=== PATIENT | female | born 2000 | race Caucasian/White ===

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

== ENCOUNTER 2020-12-07 15:46 | Emergency (ER) | payer OTHER ==
--- OUTSIDE RECORDS SUMMARY | 2020-12-07 15:51 | XMS REPORT | Continuity of Care Document ---
:[address] [facility] t Address [address] [place] [address] Care Team Providers Name Role Phone Doctor Unassigned, Name Attending Clinician Unavailable Eh OTT Attending Clinician Singer LOPEZ Attending Clinician Problems This patient has no known problems. Allergies, Adverse Reactions, Alerts This patient has no known allergies or adverse reactions. Medications This patient has no known medications. Procedures This patient has no known procedures. Encounters Start End Encounter Admission Attending Care Care Encounter Source Date/Time Date/Time Type Type Clinicians Facility Department ID 2020-12-06 2020-12-06 Orders Doctor MEGAN [id number] 00:00:00 00:00:00 Only Unassigned, ZAYRA [id number] [place] [id number] 2020-08-07 2020-08-07 Emergency Eh [facility] [id number] 07:07:00 08:22:00 Bill Fabian [id number] [place] [id number] [place] [id number] 2020-04-22 2020-04-22 Emergency Singer MEYONG [id number] 16:38:00 19:41:00 Trevor Fabian [id number] [place] [id number] [place] [address] [id number] Results This patient has no known results.
[2020-12-07 19:30] LABS: Urine Blood Trace-intact (Negative); Urine Glucose Negative (Negative); Urine Protein Negative (Negative); Urine pH 8.5 (5.0-7.0)
--- NOTE | 2020-12-07 19:36 | RAD REPORT ---
EXAM DESCRIPTION: CT - Head Brain Wo Cont - 12/07/2020 7:30 pm CLINICAL HISTORY: possible seizure;Headache COMPARISON: Head Brain Wo Cont dated 06/09/2019 TECHNIQUE: All CT scans are performed using dose optimization technique as appropriate and may inclu de automated exposure control or mA/KV adjustment according to patient size. FINDINGS: No intracranial hemorrhage, hydrocephalus or extra-axial fluid collection.No areas of brai n edema or evidence of midline shift. The paranasal sinuses and mastoids are clear. The calvarium is intact. IMPRESSION: No acute intracranial abnormality.
[2020-12-07] MEDS ORDERED: ACETAMINOPHEN 325 MG TABLET ONE (19:41)
[2020-12-07] MEDS ORDERED: NA CHLORIDE 0.9% 500 ML ONE ×2 (19:41→21:58)
[2020-12-07 19:44] LABS: Absolute Lymphocytes (CBC) 4.4 K/uL (0.7-4.9); Basophils % 0.6 % (0-1.3); Hematocrit 39.7 % (36.0-45.0); Lymphocytes % 37.2 % (15.3-44.8); MPV 8.3 fL (7.6-11.3); RBC Red Blood Cell Count 4.31 M/uL (3.86-4.86)
[2020-12-07 19:53] LABS: Barbiturates NEGATIVE (NEGATIVE); Benzodiazepines NEGATIVE (NEGATIVE); Cocaine NEGATIVE (NEGATIVE); METHAMPHETAM NEGATIVE (NEGATIVE); Methadone NEGATIVE (NEGATIVE); Opiates NEGATIVE (NEGATIVE); Phencyclidine NEGATIVE (NEGATIVE); THC Cannibis NEGATIVE (NEGATIVE)
[2020-12-07 20:05] LABS: ALT/SGPT 15 U/L (12-78); AST/SGOT 15 U/L (15-37); Albumin 3.9 g/dL (3.4-5.0); Alkaline Phosphatase 85 U/L (45-117); BUN Blood Urea Nitrogen 8 mg/dL (7-18); Bicarbonate 25 mmol/L (21-32); Bilirubin Direct 0.1 mg/dL (0-0.2); Bilirubin Total 0.4 mg/dL (0.2-1.0); Glucose Level 83 mg/dL (74-106); Potassium 3.7 mmol/L (3.5-5.1); Protein, Total 8.2 g/dL (6.4-8.2); Sodium Level 140 mmol/L (136-145); Troponin I < 0.02 ng/mL (0.0-0.045)
[2020-12-07 20:22] LABS: Protime INR 1.03
--- NOTE | 2020-12-07 21:14 | RAD REPORT ---
EXAM DESCRIPTION: RAD - Chest Single View - 12/07/2020 9:04 pm CLINICAL HISTORY: CHEST PAIN COMPARISON: No comparisons FINDINGS: No evidence of edema or pneumonia. The heart size is within normal limits.No acute osseous abnormality. No significant pleural effusions or pneumothorax. IMPRESSION: No acute cardiopulmonary disease.
--- NOTE | 2020-12-07 21:51 | ER ---
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 Hx of seizures, not ca1 taking meds at this time. PT A\T\Ox4. Ambulatory. Coronavirus screen: Client denies travel out of the [place] in the last 14 days. At this time, the client does not indicate any symptoms associated with coronavirus-19. Ebola Screen: Patient negative for fever greater than or equal to 101.5 degrees Fahrenheit, and additional compatible Ebola Virus Disease symptoms Patient denies exposure to infectious person. Patient denies travel to an Ebola-affected area in the 21 days before illness onset. No symptoms or risks identified at this time. Initial Sepsis Screen: Does the patient meet any 2 criteria? No. Patient's initial sepsis screen is negative. Does the patient have a suspected source of infection? No. Patient's initial sepsis screen is negative. Risk Assessment: Do you want to hurt yourself or someone else? Patient reports no desire to harm self or others. Onset of symptoms was December 07, 2020. 15:53 Method Of Arrival: EMS: [facility] ca1 15:53 Acuity: ALFREDA 3 ca1 BLUEPRINTER: 15:56 LMP N/A - Irregular menses ca1 Historical: - Allergies: 15:56 No Known Allergies; ca1 - PMHx: 15:56 Anemia; Seizures; ca1 - Immunization history:: Client reports having NOT received the Covid vaccine. Flu vaccine is not up to date. - Social history:: Smoking status: Patient reports the use of cigarette tobacco products, denies chronic smoking, but will smoke occasionally, Patient uses alcohol, only on a social basis. Screenin:00 Abuse screen: Denies threats or abuse. Denies injuries from another. Nutritional ld1 screening: No deficits noted. Tuberculosis screening: No symptoms or risk factors identified. Fall Risk None identified. Assessment: 19:00 General: Appears in no apparent distress. comfortable, Behavior is calm, cooperative, ld1 appropriate for age. 19:00 Pain: Denies pain. Neuro: Level of Consciousness is awake, alert, obeys commands, ld1 Oriented to person, place, time, situation. Cardiovascular: Capillary refill < 3 seconds Patient's skin is warm and dry. Respiratory: Airway is patent Respiratory effort is even, unlabored, Respiratory pattern is regular, symmetrical. GI: Abdomen is flat, non-distended. : No signs and/or symptoms were reported regarding the genitourinary system. EENT: No signs and/or symptoms were reported regarding the EENT system. Derm: No signs and/or symptoms reported regarding the dermatologic system. Musculoskeletal: No signs and/or symptoms reported regarding the musculoskeletal system. 21:49 Reassessment: Patient appears in no apparent distress at this time. No changes from ld1 previously documented assessment. Patient and/or family updated on plan of care and expected duration. Pain level reassessed. Vital Signs: 15:56 BP 125 / 78; Pulse 108; Resp 18 S; Temp 99.1(TE); Pulse Ox 99% on R/A; Weight 56.25 kg ca1 (R); Height 5 ft. 2 in. (157.48 cm) (R); Pain 7/10; 17:00 BP 110 / 84; Pulse 86; Resp 18; Pulse Ox 100% on R/A; ld1 18:00 BP 118 / 72; Pulse 76; Resp 18; Pulse Ox 100% on R/A; ld1 19:00 BP 120 / 78; Pulse 80; Resp 18; Pulse Ox 100% on R/A; ld1 20:00 BP 118 / 72; Pulse 72; Resp 18; Pulse Ox 100% ; ld1 21:49 BP 126 / 70; Pulse 79; Resp 18; Pulse Ox 100% ; ld1 15:56 Body Mass Index 22.68 (56.25 kg, 157.48 cm) ca1 ED Course: 15:50 Patient arrived in ED. ds1 15:55 Triage completed. ca1 15:56 Arm band placed on right wrist. ca1 18:38 Alexi Mccall PA is PHCP. cp 18:38 Betty Ragsdale MD is Attending Physician. cp 18:49 Patient placed in an exam room, on a stretcher. ll1 18:59 Jonathan Brown MD is Attending Physician. cp 19:00 Patient has correct armband on for positive identification. Placed in gown. Bed in low ld1 position. Call light in reach. Side rails up X2. inspector cold working on. Pulse ox on. NIBP on. 19:16 Laura Trivedi, MARGARITA is Primary Nurse. ld1 19:29 CT Head Brain wo Cont In Process Unspecified. EDMS 19:31 Urine --Ancillary Sent. jb5 19:32 Urine --Ancillary (enter results) Sent. jb5 19:32 Acetaminophen Level Sent. jb5 19:32 D-Dimer Sent. jb5 19:32 Troponin I Sent. jb5 19:32 Acetaminophen Sent. jb5 19:32 Basic Metabolic Panel Sent. jb5 19:32 CBC with Diff Sent. jb5 19:32 ETOH Level Sent. jb5 19:32 Hepatic Function Sent. jb5 19:32 PT-INR Sent. jb5 19:32 Ptt, Activated Sent. jb5 19:32 Salicylate Sent. jb5 19:32 Urine Drug Screen Sent. jb5 19:51 IV discontinued, bleeding controlled, Pressure dressing applied, EMS 20G IV jb5 infiltrated, patient complained of discomfort and asked to have it removed. 19:51 Inserted saline lock: 22 gauge in right wrist, using aseptic technique. jb5 21:04 XRAY Chest (1 view) In Process Unspecified. EDMS 21:49 Pardeep Card MD is Referral Physician. cp 22:16 No provider procedures requiring assistance completed. IV discontinued. ld1 Administered Medications: 19:54 Drug: NS 0.9% 500 ml Route: IV; Rate: bolus; Site: right wrist; ld1 21:00 Follow up: Response: No adverse reaction; IV Status: Completed infusion; IV Intake: ld1 500ml 19:55 Drug: Tylenol 650 mg Route: PO; ld1 21:42 Follow up: Response: No adverse reaction ld1 21:41 Drug: Ketorolac 15 mg Route: IVP; Site: right wrist; ld1 21:42 Follow up: Response: No adverse reaction ld1 21:41 Drug: NS 0.9% 500 ml Route: IV; Rate: bolus; Site: right wrist; ld1 Intake: 21:00 IV: 500ml; Total: 500ml. ld1 Outcome: 21:50 Discharge ordered by . cp 22:17 Discharged to home ambulatory. ld1 22:17 Condition: stable 22:17 Discharge instructions given to patient, family, Instructed on discharge instructions, follow up and referral plans. medication usage, Demonstrated understanding of instructions, follow-up care, medications. 22:17 Patient left the ED. ld1 Signatures: Dispatcher [employer] EDMO Griselda Richards ds1 Alexi Mccall PA PA cp Broussard, Jennifer jb5 Poonam Marquez RN RN ca1 Abner Melo RN RN ll1 Laura Trivedi RN RN ld1 Corrections: (The following items were deleted from the chart) 19:53 19:51 bleeding controlled, Pressure dressing applied, jb5 jb5
--- NOTE | 2020-12-07 21:51 | EDPHYS ---
Physician Documentation [facility] Name: Pedro Luis Ruano Age: 20 yrs Sex: Female : 2000 Arrival Date: 12/07/2020 Time: 15:50 Bed 17 Private MD: ED Physician Jonathan Brown HPI: 12/07 18:45 This 20 yrs old Female presents to ER via EMS with complaints of Probable cp Seizure. 18:45 The patient presents after having a possible seizure episode, no tonic-clonic activity cp was appreciated, no post-ictal period is described, patient reports falling to ground after having chest pain. No LOC. No incontinence. Associated injury: The patient did not suffer any apparent associated injury. Current symptoms: chest pain. 18:45 Patient reports PMHX of seizures but has not been seen and evaluated by neurologist. cp Patient denies currently taking any prescribed seizure meds. 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 Flu vaccine is not up to date. - Social history:: Smoking status: Patient reports the use of cigarette tobacco products, denies chronic smoking, but will smoke occasionally, Patient uses alcohol, only on a social basis. ROS: 18:50 Constitutional: Negative for body aches, chills, fever, poor PO intake. cp 18:50 Eyes: Negative for injury, pain, redness, and discharge. cp 18:50 Cardiovascular: Positive for chest pain, Negative for edema, palpitations. cp 18:50 ENT: Negative for ear pain, sore throat, difficulty swallowing, difficulty handling cp secretions. 18:50 Respiratory: Negative for cough, shortness of breath, wheezing. 18:50 Abdomen/GI: Negative for abdominal pain, vomiting, diarrhea, constipation. 18:50 : Negative for urinary symptoms. 18:50 Neuro: Negative for altered mental status, headache, weakness, active seizure activity, post-ictal symptoms. 18:50 All other systems are negative. Exam: 18:55 Constitutional: The patient appears in no acute distress, alert, awake, cp non-diaphoretic, non-toxic, well developed, well nourished. 18:55 Head/Face: Normocephalic, atraumatic. cp 18:55 Eyes: Periorbital structures: appear normal, Pupils: equal, round, and reactive to light and accomodation, Extraocular movements: intact throughout, Conjunctiva: normal, no exudate, no injection, Sclera: no appreciated abnormality, Lids and lashes: appear normal, bilaterally. 18:55 ENT: External ear(s): are unremarkable, Ear canal(s): are normal, clear, TM's: dullness, bilaterally, Nose: is normal, Mouth: Lips: moist, Oral mucosa: moist, Posterior pharynx: Airway: no evidence of obstruction, patent, Voice: is normal. 18:55 Neck: ROM/movement: is normal, is supple, without pain, no range of motions limitations, no nuchal rigidity. 18:55 Chest/axilla: Inspection: normal, Palpation: crepitus, is not appreciated, tenderness, that is mild, of the anterior aspect of right upper chest, anterior aspect of left upper chest and mid-sternal area. 18:55 Cardiovascular: Rate: normal, Rhythm: regular, Heart sounds: murmur, not appreciated, Edema: is not appreciated, JVD: is not appreciated. 18:55 Respiratory: the patient does not display signs of respiratory distress, Respirations: normal, no use of accessory muscles, no retractions, labored breathing, is not present, Breath sounds: are clear throughout, no decreased breath sounds, no stridor, no wheezing. 18:55 Abdomen/GI: Inspection: abdomen appears normal, Palpation: abdomen is soft and non-tender, in all quadrants. 18:55 Back: pain, is absent, ROM is normal. 18:55 Musculoskeletal/extremity: Exam is negative for decreased range of motion, deformity, injury. 18:55 Neuro: Orientation: to person, place \T\ time. Mentation: is normal, Cerebellar function: is grossly normal, Motor: moves all fours, strength is normal, Sensation: is normal. 19:52 ECG was reviewed by the Attending Physician. cp Vital Signs: 15:56 BP 125 / 78; Pulse 108; Resp 18 S; Temp 99.1(TE); Pulse Ox 99% on R/A; Weight 56.25 kg ca1 (R); Height 5 ft. 2 in. (157.48 cm) (R); Pain 7/10; 17:00 BP 110 / 84; Pulse 86; Resp 18; Pulse Ox 100% on R/A; ld1 18:00 BP 118 / 72; Pulse 76; Resp 18; Pulse Ox 100% on R/A; ld1 19:00 BP 120 / 78; Pulse 80; Resp 18; Pulse Ox 100% on R/A; ld1 20:00 BP 118 / 72; Pulse 72; Resp 18; Pulse Ox 100% ; ld1 21:49 BP 126 / 70; Pulse 79; Resp 18; Pulse Ox 100% ; ld1 15:56 Body Mass Index 22.68 (56.25 kg, 157.48 cm) ca1 MDM: 18:57 Patient medically screened. cp 19:00 Differential diagnosis: drug overdose, cardiac arrhythmia, seizure, pulmonary embolism, cp anxiety, pseudo seizure. 21:50 Data reviewed: vital signs, nurses notes, lab test result(s), EKG, radiologic studies, cp CT scan, plain films. 21:50 Test interpretation: by ED physician or midlevel provider: ECG, plain radiologic cp studies. Counseling: I had a detailed discussion with the patient and/or guardian regarding: the historical points, exam findings, and any diagnostic results supporting the discharge/admit diagnosis, lab results, radiology results, the need for outpatient follow up, for definitive care, a neurologist, to return to the emergency department if symptoms worsen or persist or if there are any questions or concerns that arise at home. Response to treatment: the patient's symptoms have markedly improved after treatment, VSS. No seizure activity observed while monitoring patient in ED. Will discharge to home for continued monitoring. 12/07 18:54 Order name: Acetaminophen cp 12/07 18:54 Order name: Basic Metabolic Panel; Complete Time: 20:26 cp 12/07 20:26 Interpretation: Normal except: CL 109. cp 12/07 18:54 Order name: CBC with Diff; Complete Time: 20:26 cp 12/07 20:26 Interpretation: Normal except: WBC 11.70. cp 12/07 18:54 Order name: ETOH Level; Complete Time: 20:26 cp 12/07 20:26 Interpretation: Abnormal: ETOH 43. cp 12/07 18:54 Order name: Hepatic Function; Complete Time: 20:26 cp 12/07 18:54 Order name: PT-INR; Complete Time: 20:26 12/07 18:54 Order name: Ptt, Activated; Complete Time: 20:26 12/07 18:54 Order name: Salicylate; Complete Time: 21:20 12/07 18:54 Order name: Urine Drug Screen; Complete Time: 20:26 12/07 20:27 Interpretation: Reviewed. 12/07 18:54 Order name: Troponin I; Complete Time: 20:26 12/07 20:27 Interpretation: TROP < 0.02; Reviewed. 12/07 18:54 Order name: D-Dimer; Complete Time: 20:26 12/07 20:28 Interpretation: Within normal limits: D-DIMER 338. 12/07 18:54 Order name: Acetaminophen Level; Complete Time: 20:26 EDMS 12/07 19:30 Order name: Urine Dipstick-Ancillary; Complete Time: 20:26 EDVT 12/07 20:27 Interpretation: Normal except: UBLD Trace-intact; UPH 8.5; UESTR 1+. 12/07 19:31 Order name: Urine --Ancillary (enter results) [facility] 12/07 18:38 Order name: Urine Dipstick-Ancillary (obtain specimen); Complete Time: 19:55 12/07 18:38 Order name: Urine Test (obtain specimen); Complete Time: 19:55 12/07 18:54 Order name: EKG; Complete Time: 18:55 12/07 18:54 Order name: EKG - Nurse/Tech; Complete Time: 19:54 12/07 18:54 Order name: IV Saline Lock; Complete Time: 19:55 12/07 18:54 Order name: Labs collected and sent; Complete Time: 19:32 12/07 18:54 Order name: Suicide Screening (Stamps); Complete Time: 19:55 12/07 18:55 Order name: CT Head Brain wo Cont; Complete Time: 20:26 12/07 20:27 Interpretation: Report reviewed. 12/07 19:31 Order name: Urine --Ancillary; Complete Time: 21:20 EDMS 12/07 20:29 Order name: XRAY Chest (1 view); Complete Time: 21:20 cp EC:52 Rate is 85 beats/min. Rhythm is regular. NH interval is normal. QRS interval is normal. cp QT interval is normal. T waves are Inverted in lead aVR. Interpreted by me. Reviewed by me. Administered Medications: 19:54 Drug: NS 0.9% 500 ml Route: IV; Rate: bolus; Site: right wrist; ld1 21:00 Follow up: Response: No adverse reaction; IV Status: Completed infusion; IV Intake: ld1 500ml 19:55 Drug: Tylenol 650 mg Route: PO; ld1 21:42 Follow up: Response: No adverse reaction ld1 21:41 Drug: Ketorolac 15 mg Route: IVP; Site: right wrist; ld1 21:42 Follow up: Response: No adverse reaction ld1 21:41 Drug: NS 0.9% 500 ml Route: IV; Rate: bolus; Site: right wrist; ld1 Disposition: 23:20 Co-signature as Attending Physician, Jonathan Brown MD. rn Disposition Summary: 12/07/20 21:50 Discharge Ordered Location: Home cp Problem: new cp Symptoms: have improved cp Condition: Stable cp Diagnosis - Chest pain, unspecified cp Followup: cp - With: Pardeep Card MD - When: 2 - 3 days - Reason: seizure disorder Discharge Instructions: - Discharge Summary Sheet cp - Nonspecific Chest Pain, Adult cp Forms: - Medication Reconciliation Form cp - Thank You Letter cp - Antibiotic Education cp - Prescription Opioid Use cp Prescriptions: - Ibuprofen 600 mg Oral Tablet - take 1 tablet by ORAL route every 6 hours As needed take with food; 30 tablet; cp Refills: 0, Product Selection Permitted Signatures: Dispatcher [employer] Jonathan Melgar MD MD rn Page, Corey, PA PA cp Poonam Marquez RN RN ca1 Laura Trivedi RN RN ld1
[2020-12-07] MEDS ORDERED: KETOROLAC 30 MG/ML INJ ONE (21:58)
[2020-12-07 22:41] VITALS: TEMP 99.1
[2020-12-07 22:43] VITALS: O2SAT 100
[2020-12-07 22:51] VITALS: BP 126/70
--- NOTE | 2020-12-08 11:00 | EKG ---
Test Date: 2020-12-07 Test Time: 19:47:46 Ceramic Sprayer: GWENDOLYN MEASUREMENT RESULTS: Intervals: Rate: 85 ND: 116 QRSD: 76 QT: 370 QTc: 440 [place]: P: 70 ND: 116 QRS: 84 T: 59 INTERPRETIVE STATEMENTS: Normal sinus rhythm with sinus arrhythmia Normal ECG Compared to ECG 06/09/2019 16:56:43 Sinus tachycardia no longer present Electronically Signed On 12-08-20 10:58:40 CDT by Eduardo Marley
== END 2020-12-07 22:17 | disposition home or self-care (01) ==
LOC: ER 15:46
DX: R07.9 Chest pain, unspecified (principal); R56.9 Unspecified convulsions; F17.210 Nicotine dependence, cigarettes, uncomplicated
CPT/HCPCS: 96361; 93005; 85025; 80048; 36415; 80320; 80329 ×2; 81025; 85610; 85379; 80076; 85730; 81003; 84484; 80307; 70450; 71045; 96374; 99284; J7040 ×2

== ENCOUNTER 2021-02-18 20:32 | Emergency (ER) | payer OTHER ==
[2021-02-18 21:09] LABS: Absolute Lymphocytes (CBC) 4.3 K/uL (0.7-4.9); Basophils % 0.8 % (0-1.3); Hematocrit 39.8 % (36.0-45.0); Lymphocytes % 34.5 % (15.3-44.8); MPV 8.2 fL (7.6-11.3); RBC Red Blood Cell Count 4.31 M/uL (3.86-4.86)
[2021-02-18 21:15] LABS: Protime INR 0.99
[2021-02-18 21:18] LABS: Urine Blood Trace-intact (Negative); Urine Glucose Negative (Negative); Urine Protein Negative (Negative); Urine pH 7.5 (5.0-7.0)
[2021-02-18 21:24] LABS: Urine Specific Gravity/Preg 1.025 (1.005-1.030)
[2021-02-18] MEDS ORDERED: ACETAMINOPHEN 325 MG TABLET ONE (21:29)
[2021-02-18 21:32] LABS: ALT/SGPT 22 U/L (12-78); AST/SGOT 15 U/L (15-37); Albumin 4.4 g/dL (3.4-5.0); Alkaline Phosphatase 75 U/L (45-117); BUN Blood Urea Nitrogen 8 mg/dL (7-18); Bicarbonate 27 mmol/L (21-32); Bilirubin Direct 0.2 mg/dL (0-0.2); Bilirubin Total 0.4 mg/dL (0.2-1.0); Glucose Level 92 mg/dL (74-106); NT PRO-BNP 9 pg/mL (<125); Potassium 3.8 mmol/L (3.5-5.1); Protein, Total 8.3 g/dL (6.4-8.2); Sodium Level 141 mmol/L (136-145); Troponin (Emerg Dept Use Only) < 0.02 ng/mL (0.0-0.045)
[2021-02-18] MEDS ORDERED: NA CHLORIDE 0.9% 1,000 ML ONE (21:36)
[2021-02-18 21:41] LABS: Barbiturates NEGATIVE (NEGATIVE); Benzodiazepines NEGATIVE (NEGATIVE); Cocaine NEGATIVE (NEGATIVE); METHAMPHETAM NEGATIVE (NEGATIVE); Methadone NEGATIVE (NEGATIVE); Opiates NEGATIVE (NEGATIVE); Phencyclidine NEGATIVE (NEGATIVE); THC Cannibis NEGATIVE (NEGATIVE)
--- NOTE | 2021-02-18 22:05 | RAD REPORT ---
EXAM DESCRIPTION: RAD - Chest Single View - 02/18/2021 9:24 pm CLINICAL HISTORY: CHEST PAIN COMPARISON: Chest Single View dated 12/07/2020 FINDINGS: Lines: None. Lungs: No evidence of edema or pneumonia. Pleural: No significant pleural effusions or pneumothorax. Cardiac: The heart size is within normal limits. Bones: No acute fractures. Other: IMPRESSION: No acute cardiopulmonary disease.
[2021-02-18] MEDS ORDERED: KETOROLAC 30 MG/ML INJ ONE (22:26)
--- NOTE | 2021-02-18 22:59 | EDPHYS ---
Physician Documentation [facility] Name: Pedro Luis Ruano Age: 20 yrs Sex: Female : 2000 Arrival Date: 02/18/2021 Time: 20:34 Bed 6 Private MD: ED Physician Franko Rossi HPI: 02/18 21:00 This 20 yrs old Female presents to ER via Ambulatory with complaints of Chest mh7 Pain. 21:00 The patient or guardian reports chest pain that is located primarily in the anterior mh7 chest wall, right. The pain does not radiate. 21:00 Associated signs and symptoms: Pertinent negatives: abdominal pain, cough, diaphoresis, mh7 dizziness, headache, lower extremity pain, lower extremity swelling, lightheadedness, nausea, near syncope, palpitations, recent travel, shortness of breath, syncope, vomiting. 21:00 The chest pain is described as a heaviness. Duration: The patient or guardian reports a mh7 single episode, that is still ongoing, but improving, that lasted 1 hour(s). Modifying factors: The symptoms are alleviated by nothing. the symptoms are aggravated by nothing. Severity of pain: At its worst the pain was moderate today, in the emergency department the pain has improved moderately. 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 - Social history:: Smoking status: Reported history of juuling and/or vaping. ROS: 21:00 Constitutional: Negative for fever, chills, and weight loss, Eyes: Negative for injury, mh7 pain, redness, and discharge, ENT: Negative for injury, pain, and discharge, Neck: Negative for injury, pain, and swelling, Respiratory: Negative for shortness of breath, cough, wheezing, and pleuritic chest pain, Abdomen/GI: Negative for abdominal pain, nausea, vomiting, diarrhea, and constipation, Back: Negative for injury and pain, : Negative for injury, bleeding, discharge, and swelling, MS/Extremity: Negative for injury and deformity, Skin: Negative for injury, rash, and discoloration, Neuro: Negative for headache, weakness, numbness, tingling, and seizure, Psych: Negative for depression, anxiety, suicide ideation, homicidal ideation, and hallucinations, Allergy/Immunology: Negative for hives, rash, and allergies, Endocrine: Negative for neck swelling, polydipsia, polyuria, polyphagia, and marked weight changes, Hematologic/Lymphatic: Negative for swollen nodes, abnormal bleeding, and unusual bruising. Exam: 21:00 Constitutional: This is a well developed, well nourished patient who is awake, alert, mh7 and in no acute distress. Head/Face: Normocephalic, atraumatic. Eyes: Pupils equal round and reactive to light, extra-ocular motions intact. Lids and lashes normal. Conjunctiva and sclera are non-icteric and not injected. Cornea within normal limits. Periorbital areas with no swelling, redness, or edema. Neck: Trachea midline, no thyromegaly or masses palpated, and no cervical lymphadenopathy. Supple, full range of motion without nuchal rigidity, or vertebral point tenderness. No Meningismus. 21:00 Respiratory: Lungs have equal breath sounds bilaterally, clear to auscultation and percussion. No rales, rhonchi or wheezes noted. No increased work of breathing, no retractions or nasal flaring. Abdomen/GI: Soft, non-tender, with normal bowel sounds. No distension or tympany. No guarding or rebound. No evidence of tenderness throughout. Back: No spinal tenderness. No costovertebral tenderness. Full range of motion. Skin: Warm, dry with normal turgor. Normal color with no rashes, no lesions, and no evidence of cellulitis. MS/ Extremity: Pulses equal, no cyanosis. Neurovascular intact. Full, normal range of motion. Neuro: Awake and alert, GCS 15, oriented to person, place, time, and situation. Cranial nerves II-XII grossly intact. Motor strength 5/5 in all extremities. Sensory grossly intact. Cerebellar exam normal. Normal gait. Psych: Awake, alert, with orientation to person, place and time. Behavior, mood, and affect are within normal limits. 21:00 Chest/axilla: Inspection: normal, Palpation: tenderness, that is moderate, of the anterior aspect of right upper chest and anterior aspect of left upper chest, that totally reproduces the patient's complaints, Axilla: are normal, Lymph nodes: lymphadenopathy is not appreciated. 21:00 Cardiovascular: Rate: tachycardic, Rhythm: regular, Pulses: no pulse deficits are appreciated, Heart sounds: normal, normal S1and S2, Edema: is not appreciated, JVD: is not appreciated. Vital Signs: 20:47 BP 134 / 86; Pulse 108; Resp 16; Pulse Ox 100% on R/A; Weight 57.61 kg; Height 5 ft. 2 lp1 in. (157.48 cm); Pain 8/10; 23:03 BP 128 / 78; Pulse 92; Resp 18; Pulse Ox 100% on R/A; Pain 0/10; wg 20:47 Body Mass Index 23.23 (57.61 kg, 157.48 cm) lp1 MDM: 22:56 Differential diagnosis: acute myocardial infarction, acute pericarditis, anxiety, mh7 coronary artery disease chest wall pain, costochondritis, myocarditis, pericarditis, pleurisy, pneumonia, pneumothorax, pulmonary embolus. HEART Score: History: Slightly Suspicious (0), ECG: Normal (0), Age: < or = 45 years (0), Risk Factors: No Risk Factors Known (0), Troponin: < or = 1 x Normal Limit (0), Total Score = 0. Data reviewed: vital signs, nurses notes, old medical records, lab test result(s), cardiac enzymes, CBC, drug level(s), alcohol, electrolytes, urinalysis, urine drug screen, UPT: negative EKG, radiologic studies, plain films. Data interpreted: Pulse oximetry: on room air is 100 %. Interpretation: normal. Counseling: I had a detailed discussion with the patient and/or guardian regarding: the historical points, exam findings, and any diagnostic results supporting the discharge/admit diagnosis, lab results, radiology results, the need for outpatient follow up, to return to the emergency department if symptoms worsen or persist or if there are any questions or concerns that arise at home. Response to treatment: the patient's symptoms have resolved after treatment, the patient's blood pressure is in an acceptable range, mental status has returned to baseline, the patient no longer shows bradycardia, the patient is not short of breath, the patient is not tachycardic, the patient's pain is gone, the patient's temperature has normalized. 22:58 Patient medically screened. [facility] 02/18 20:58 Order name: Basic Metabolic Panel; Complete Time: 21:33 [facility] 02/18 20:58 Order name: CBC with Diff; Complete Time: 21:33 [facility] 02/18 20:58 Order name: LFT's; Complete Time: 21:33 [facility] 02/18 20:58 Order name: Magnesium; Complete Time: 21:33 [facility] 02/18 20:58 Order name: NT PRO-BNP; Complete Time: 21:33 [facility] 02/18 20:58 Order name: PT-INR; Complete Time: 21:33 [facility] 02/18 20:58 Order name: Troponin (emerg Dept Use Only); Complete Time: 21:33 [facility] 02/18 20:58 Order name: XRAY Chest (1 view); Complete Time: 22:13 [facility] 02/18 20:58 Order name: UDS; Complete Time: 21:52 [facility] 02/18 20:58 Order name: ETOH Level; Complete Time: 22:54 [facility] 02/18 21:00 Order name: D-Dimer; Complete Time: 21:33 7 02/18 21:00 Order name: TSH; Complete Time: 22:32 [facility] 02/18 21:18 Order name: Urine Dipstick-Ancillary; Complete Time: 21:33 EDMS 02/18 21:21 Order name: Urine --Ancillary (enter results); Complete Time: 21:33 wg 02/18 20:58 Order name: EKG; Complete Time: 21:00 [facility] 02/18 20:58 Order name: Cardiac monitoring; Complete Time: 21:00 [facility] 02/18 20:58 Order name: EKG - Nurse/Tech; Complete Time: 21:00 [facility] 02/18 20:58 Order name: IV Saline Lock; Complete Time: 21:00 [facility] 02/18 20:58 Order name: Labs collected and sent; Complete Time: 21:00 [facility] 02/18 20:58 Order name: O2 Per Protocol; Complete Time: 21:00 [facility] 02/18 20:58 Order name: O2 Sat Monitoring; Complete Time: 21:00 [facility] 02/18 20:58 Order name: Urine Dipstick-Ancillary (obtain specimen); Complete Time: 21:21 [facility] 02/18 20:58 Order name: Urine Test (obtain specimen); Complete Time: 21: [facility] Administered Medications: 21:09 Drug: Tylenol 650 mg Route: PO; 22:07 Follow up: Response: No adverse reaction 21:20 Drug: NS 0.9% 1000 ml Route: IV; Rate: 1000 ml; Infused Over: 15 mins; Site: left wg antecubital; 22:07 Follow up: IV Status: Completed infusion; IV Intake: 1000ml 22:05 Drug: Ketorolac 15 mg Route: IVP; Infused Over: 2 mins; Site: left antecubital; 22:08 Follow up: Response: No adverse reaction Disposition Summary: 02/18/21 22:58 Discharge Ordered Location: Home [facility] Problem: new [facility] Symptoms: have improved [facility] Condition: Stable [facility] Diagnosis - Chest pain, unspecified [facility] Followup: [facility] - With: Private Physician - When: 1 - 2 days - Reason: Worsening of condition, Recheck today's complaints, Continuance of care, Re-evaluation by your physician Discharge Instructions: - Discharge Summary Sheet [facility] - Chest Wall Pain, [id number] [facility] - Nonspecific Chest Pain, Adult, [id number] [facility] Forms: - Medication Reconciliation Form [facility] - Thank You Letter [facility] - Antibiotic Education [facility] - Prescription Opioid Use [facility] Signatures: Dispatcher [employer] Marina Xavier RN RN lp1 Franko Rossi MD MD 7 Osmany Rios RN wg
--- NOTE | 2021-02-18 22:59 | ER ---
Nurse's Notes [facility] Name: Pedro Luis Ruano Age: 20 yrs Sex: Female : 2000 Arrival Date: 02/18/2021 Time: 20:34 Bed 6 Private MD: Diagnosis: Chest pain, unspecified Presentation: 02/18 20:47 Chief complaint: Patient states: chest pain that began 1 hour ago, reports "feels like lp1 someone is sitting on my chest"; Denies any sob, palpitations; Reports ETOH yesterday. Coronavirus screen: At this time, the client does not indicate any symptoms associated with coronavirus-19. Ebola Screen: No symptoms or risks identified at this time. Initial Sepsis Screen: Does the patient meet any 2 criteria? No. Patient's initial sepsis screen is negative. Does the patient have a suspected source of infection? No. Patient's initial sepsis screen is negative. Risk Assessment: Do you want to hurt yourself or someone else? Patient reports no desire to harm self or others. Onset of symptoms was February 18, 2021. 20:47 Method Of Arrival: Ambulatory lp1 20:47 Acuity: ALFREDA 3 lp1 Triage Assessment: 20:57 General: Appears in no apparent distress. comfortable, slender, well groomed, well wg developed, Behavior is calm, cooperative, appropriate for age. Pain: Complains of pain in chest Pain currently is 4 out of 10 on a pain scale. Quality of pain is described as pressure. Cardiovascular: Reports chest pain, Denies diaphoresis, lightheadedness, nausea, shortness of breath, syncope, vomiting, Rhythm is sinus rhythm. Respiratory: No deficits noted. Breath sounds are clear bilaterally. 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 - Social history:: Smoking status: Reported history of juuling and/or vaping. Vital Signs: 20:47 BP 134 / 86; Pulse 108; Resp 16; Pulse Ox 100% on R/A; Weight 57.61 kg; Height 5 ft. 2 lp1 in. (157.48 cm); Pain 8/10; 23:03 BP 128 / 78; Pulse 92; Resp 18; Pulse Ox 100% on R/A; Pain 0/10; wg 20:47 Body Mass Index 23.23 (57.61 kg, 157.48 cm) lp1 ED Course: 20:34 Patient arrived in ED. ja2 20:48 Franko Rossi MD is Attending Physician. 7 20:49 Triage completed. lp1 20:49 Arm band placed on. lp1 20:56 Patient has correct armband on for positive identification. Bed in low position. Call wg light in reach. Side rails up X2. Adult w/ patient. patient monitor on. Pulse ox on. NIBP on. 20:56 Inserted saline lock: 20 gauge in left antecubital area, using aseptic technique. 20:57 EKG completed in triage. Results shown to MD. 21:00 Osmany Rios, RN is Primary Nurse. 21:00 Basic Metabolic Panel Sent. wg 21:00 CBC with Diff Sent. wg 21:00 LFT's Sent. wg 21:00 Magnesium Sent. wg 21:00 NT PRO-BNP Sent. wg 21:00 Troponin (emerg Dept Use Only) Sent. wg 21:00 PT-INR Sent. wg 21:00 ETOH Level Sent. wg 21:01 TSH Sent. wg 21:01 D-Dimer Sent. wg 21:21 XRAY Chest (1 view) Sent. wg 21:24 XRAY Chest (1 view) In Process Unspecified. EDMS 23:03 IV discontinued, bleeding controlled, No redness/swelling at site. Pressure dressing wg applied. Administered Medications: 21:09 Drug: Tylenol 650 mg Route: PO; wg 22:07 Follow up: Response: No adverse reaction 21:20 Drug: NS 0.9% 1000 ml Route: IV; Rate: 1000 ml; Infused Over: 15 mins; Site: left wg antecubital; 22:07 Follow up: IV Status: Completed infusion; IV Intake: 1000ml 22:05 Drug: Ketorolac 15 mg Route: IVP; Infused Over: 2 mins; Site: left antecubital; 22:08 Follow up: Response: No adverse reaction wg Intake: 22:07 IV: 1000ml; Total: 1000ml. Outcome: 22:58 Discharge ordered by MD. lind 23:04 Discharged to home ambulatory. wg 23:04 Condition: stable 23:04 Discharge instructions given to Instructed on discharge instructions, follow up and referral plans. Demonstrated understanding of instructions, follow-up care. 23:04 Patient left the ED. wg Signatures: Dispatcher [employer] EDMarina Dial RN RN lp1 Franko Rossi MD MD mh7 Osmany Rios RN wg Alexander, Jessica ja2
[2021-02-18 23:13] VITALS: BP 134/86; O2SAT 100
== END 2021-02-18 23:04 | disposition home or self-care (01) ==
LOC: ER 20:32
DX: R07.9 Chest pain, unspecified (principal)
CPT/HCPCS: 96361; 85025; 80048; 36415; 80320; 83735; 81025; 85610; 85379; 80076; 84443; 81003; 84484; 83880; 80307; 71045; 96374; 99284; J7030

== ENCOUNTER 2022-12-15 09:25 | Emergency (ER) | payer OTHER ==
[2022-12-15 10:08] LABS: Hematocrit 39.1 % (36.0-45.0); Lymphocytes % 37.8 % (15.3-44.8); MCV 93.6 fL (80-100); MPV 8.4 fL (7.6-11.3); RBC Red Blood Cell Count 4.18 M/uL (3.86-4.86)
[2022-12-15] MEDS ORDERED: ASPIRIN 81 MG CHEWABLE TABLET ONE (10:08)
[2022-12-15 10:12] LABS: Specific Gravity 1.009 (1.005-1.030)
[2022-12-15 10:24] LABS: BUN Blood Urea Nitrogen 7 mg/dL (7-18); Bicarbonate 27 mEq/L (21-32); Glomerular Filtration Rate 127 ml/min (=/>90); Glucose Level 96 mg/dL (74-106); Magnesium 1.9 mg/dL (1.6-2.4); Potassium 3.3 mEq/L (3.5-5.1); Sodium Level 137 mEq/L (136-145)
[2022-12-15 10:27] LABS: Troponin High Sensitivity < 3.0 pg/mL (<58.9)
--- NOTE | 2022-12-15 10:56 | RAD REPORT ---
EXAM DESCRIPTION: RAD - Chest Single View - 12/15/2022 10:32 am CLINICAL HISTORY: CHEST PAIN Chest pain. COMPARISON: Chest Single View dated 02/18/2021; Chest Single View dated 12/07/2020 FINDINGS: Portable technique limits examination quality. The lungs are grossly clear. The heart is normal in size. No displaced fractures. IMPRESSION: No acute intrathoracic process suspected.
--- NOTE | 2022-12-15 10:59 | EDPHYS ---
Physician Documentation [facility] Name: Pedro Luis Ruano Age: 22 yrs Sex: Female : 2000 Arrival Date: 12/15/2022 Time: 09:25 Bed 14 Private MD: ED Physician Eloy Sánchez HPI: 12/15 10:54 This 22 yrs old Black Female presents to ER via EMS with complaints of Chest pain. ms3 10:54 22-year-old female with past medical history of anemia and seizures presents to the [facility] emergency department for chest pain via [facility]. Patient states at 2 AM she developed sharp chest pain that then became tingling. Patient rates the discomfort a 0/10 at this time. Patient denies nausea, vomiting, shortness of breath. Patient states she could be . Patient denies drug use, patient endorses using a vape. EMS states monitor showed normal sinus rhythm at a rate of 100, blood pressure was 124/90. . 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 - Social history:: Smoking status: Reported history of juuling and/or vaping. ROS: 10:54 Constitutional: Negative for fever, and chills. Neck: Negative for injury, pain, and ms3 swelling, Respiratory: Negative for shortness of breath, cough, wheezing, and pleuritic chest pain, Abdomen/GI: Negative for abdominal pain, nausea, vomiting, diarrhea, and constipation. 10:54 MS/Extremity: Negative for injury and deformity, Skin: Negative for injury, rash, and discoloration, Neuro: Negative for headache, weakness, numbness, tingling. Allergy/Immunology: Negative for hives, rash, and allergies. 10:54 Cardiovascular: Positive for chest pain. 10:54 All other systems are negative. Exam: 10:54 Constitutional: This is a well developed, well nourished patient who is awake, alert, ms3 and in no acute distress. Head/Face: Normocephalic, atraumatic. Neck: Trachea midline, no cervical lymphadenopathy. Supple, full range of motion without nuchal rigidity, or vertebral point tenderness. No Meningismus. Chest/axilla: Normal chest wall appearance and motion. Nontender with no deformity. Cardiovascular: Regular rate and rhythm with a normal S1 and S2. No gallops, murmurs, or rubs. Normal PMI, no JVD. No pulse deficits. Respiratory: Lungs have equal breath sounds bilaterally, clear to auscultation and percussion. No rales, rhonchi or wheezes noted. No increased work of breathing, no retractions or nasal flaring. Abdomen/GI: Soft, non-tender, with normal bowel sounds. No distension or tympany. No guarding or rebound. No evidence of tenderness throughout. Skin: Warm, dry with normal turgor. Normal color with no rashes, no lesions, and no evidence of cellulitis. MS/ Extremity: Pulses equal, no cyanosis. Neurovascular intact. Full, normal range of motion. 17:58 ECG was reviewed by the Attending Physician. ms3 Vital Signs: 09:27 BP 130 / 84; Pulse 85; Resp 18; Temp 98.1(O); Pulse Ox 100% on R/A; Weight 68.04 kg nj1 (R); Height 5 ft. 2 in. (R); Pain 4/10; 10:41 BP 126 / 79; Pulse 73; Resp 14; Pulse Ox 100% ; Pain 0/10; nj1 11:33 BP 132 / 90; Pulse 71; Resp 16; Pulse Ox 100% ; nj1 09:27 Body Mass Index 27.44 (68.04 kg, 157.48 cm) nj1 09:27 Pain Scale: Adult nj1 10:41 Pain Scale: Adult nj1 MDM: 10:19 Patient medically screened. ms3 10:54 Differential diagnosis: abnormal EKG, acute myocardial infarction, anxiety, chest wall ms3 pain, costochondritis, esophagitis, gastritis, pulmonary embolus. Data reviewed: vital signs, nurses notes, lab test result(s), EKG, radiologic studies, and as a result, I will discharge patient. I considered the following discharge prescriptions or medication management in the emergency department Medications were administered in the Emergency Department. See MAR. Independent interpretation of the following test(s) in the Emergency Department EKG: See my EKG interpretation above chef manager: rate is 69 beats/min, Rhythm is normal sinus rhythm, regular, with no ectopy, Interpretation: normal rate, normal rhythm. Counseling: I had a detailed discussion with the patient and/or guardian regarding: the historical points, exam findings, and any diagnostic results supporting the discharge/admit diagnosis, lab results, radiology results, the need for outpatient follow up, to return to the emergency department if symptoms worsen or persist or if there are any questions or concerns that arise at home, smoking cessation. Response to treatment: There is no appreciated change of the patient's symptoms at this time, and as a result, I will discharge patient. Special discussion: Based on the patient's history, exam, and Dx evaluation, there is no indication for emergent intervention or inpatient Tx. It is understood by the patient/guardian that if the Sx's persist or worsen they need to return immediately for re-evaluation. 12/15 09:48 Order name: Basic Metabolic Panel; Complete Time: 10:48 ms3 12/15 09:48 Order name: CBC with Diff; Complete Time: 10:48 ms3 12/15 09:48 Order name: Magnesium; Complete Time: 10:48 ms3 12/15 09:48 Order name: Troponin HS; Complete Time: 10:48 ms3 12/15 09:48 Order name: Test, Urine; Complete Time: 10:48 ms3 12/15 09:48 Order name: XRAY Chest (1 view); Complete Time: 10:59 ms3 12/15 09:48 Order name: EKG; Complete Time: 09:48 ms3 12/15 09:48 Order name: Cardiac monitoring; Complete Time: 09:52 ms3 12/15 09:48 Order name: EKG - Nurse/Tech; Complete Time: 09:52 ms3 12/15 09:48 Order name: IV Saline Lock; Complete Time: 09:52 ms3 12/15 09:48 Order name: Labs collected and sent; Complete Time: :52 ms3 12/15 09:48 Order name: O2 Per Protocol; Complete Time: :52 ms3 12/15 09:48 Order name: O2 Sat Monitoring; Complete Time: 09:52 ms3 EC:58 Rate is 72 beats/min. Rhythm is regular. QRS [place] is Normal. [place] interval is normal. QRS ms3 interval is normal. Clinical impression: Normal ECG. Interpreted by me. Reviewed by me. Administered Medications: 10:00 Drug: Aspirin PO Chewable Tablet 324 mg Route: PO; nj1 11:38 Follow up: Response: No adverse reaction nj1 Disposition Summary: 12/15/22 10:59 Discharge Ordered Location: Home ms3 Condition: Stable ms3 Diagnosis - Chest pain, unspecified ms3 Followup: ms3 - With: Nathaniel Taveras MD - When: 2 - 3 days - Reason: Recheck today's complaints Discharge Instructions: - Discharge Summary Sheet ms3 - Nonspecific Chest Pain, Adult ms3 Forms: - Medication Reconciliation Form ms3 - Thank You Letter ms3 - Antibiotic Education ms3 - Prescription Opioid Use ms3 - Patient Portal Instructions ms3 Signatures: Dispatcher [employer] EDMS Eloy Sánchez DO DO ms3 Kemi Claudio RN RN nj1 Corrections: (The following items were deleted from the chart) 10:55 10:54 22-year-old female with past medical history of anemia and seizures presents to [facility] the emergency department for chest pain via [facility]. Patient states at 2 AM she developed sharp chest pain that then became tingling. Patient rates the discomfort a 0/10 at this time. Patient denies nausea, vomiting, shortness of breath. Patient states she could be . Patient denies drug use EMS states monitor showed normal sinus rhythm at a rate of 100, blood pressure was 124/90. . ms3
--- NOTE | 2022-12-15 10:59 | ER ---
Nurse's Notes [facility] Name: Pedro Luis Ruano Age: 22 yrs Sex: Female : 2000 Arrival Date: 12/15/2022 Time: 09:25 Bed 14 Private MD: Diagnosis: Chest pain, unspecified Presentation: 12/15 09:27 Chief complaint: EMS states: Chest pain, on/off since 2am this morning. Coronavirus nj1 screen: Vaccine status: Patient reports being unvaccinated. Ebola Screen: Patient denies travel to an Ebola-affected area in the 21 days before illness onset. Initial Sepsis Screen: Does the patient meet any 2 criteria? No. Patient's initial sepsis screen is negative. Does the patient have a suspected source of infection? No. Patient's initial sepsis screen is negative. Risk Assessment: Do you want to hurt yourself or someone else? Patient reports no desire to harm self or others. Onset of symptoms was December 15, 2022 at 02:00. 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 - Social history:: Smoking status: Reported history of juuling and/or vaping. Screenin:41 [facility] ED Fall Risk Assessment (Adult) History of falling in the last 3 months, nj1 including since admission No falls in past 3 months (0 pts) Confusion or Disorientation No (0 pts) Intoxicated or Sedated No (0 pts) Impaired Gait No (0 pts) Mobility Assist Device Used No (0 pt) Altered Elimination No (0 pt) Score/Fall Risk Level 0 - 2 = Low Risk Oriented to surroundings, Maintained a safe environment, Hourly rounding (assess needs \T\ fall precautionary measures) done. Abuse screen: Denies threats or abuse. Denies injuries from another. Nutritional screening: No deficits noted. Tuberculosis screening: No symptoms or risk factors identified. Assessment: 09:30 General: Appears in no apparent distress. uncomfortable, Behavior is calm, cooperative, nj1 appropriate for age. Pain: Complains of pain in chest Pain currently is 4 out of 10 on a pain scale. Quality of pain is described as sharp. Neuro: Level of Consciousness is awake, alert, obeys commands, Oriented to person, place, time, situation. Cardiovascular: Patient's skin is warm and dry. Respiratory: Airway is patent Respiratory effort is even, unlabored. 10:41 Reassessment: Patient appears in no apparent distress at this time. Patient and/or nj1 family updated on plan of care and expected duration. Pain level reassessed. Patient is alert, oriented x 3, equal unlabored respirations, skin warm/dry/pink. Patient denies pain at this time. Patient states feeling better. Patient states symptoms have improved. 11:38 Reassessment: Patient appears in no apparent distress at this time. Patient and/or nj1 family updated on plan of care and expected duration. Pain level reassessed. Patient is alert, oriented x 3, equal unlabored respirations, skin warm/dry/pink. Patient denies pain at this time. Patient states feeling better. Patient states symptoms have improved. Vital Signs: 09:27 BP 130 / 84; Pulse 85; Resp 18; Temp 98.1(O); Pulse Ox 100% on R/A; Weight 68.04 kg nj1 (R); Height 5 ft. 2 in. (R); Pain 4/10; 10:41 BP 126 / 79; Pulse 73; Resp 14; Pulse Ox 100% ; Pain 0/10; nj1 11:33 BP 132 / 90; Pulse 71; Resp 16; Pulse Ox 100% ; nj1 09:27 Body Mass Index 27.44 (68.04 kg, 157.48 cm) nj1 09:27 Pain Scale: Adult nj1 10:41 Pain Scale: Adult nj1 ED Course: 09:27 Patient arrived in ED. nj1 09:27 eKmi Claudio, MARGARITA is Primary Nurse. nj1 09:29 Triage completed. nj1 09:29 Eloy Sánchez DO is Attending Physician. ms3 09:29 Arm band placed on right wrist. nj1 09:41 Inserted saline lock: 20 gauge in right antecubital area, using aseptic technique. ld1 Blood collected. 10:34 XRAY Chest (1 view) In Process Unspecified. EDMS 10:42 Patient has correct armband on for positive identification. Bed in low position. Call nj1 light in reach. 10:42 Provided Education on: falll precautions. nj1 10:59 Nathaniel Taveras MD is Referral Physician. ms3 11:38 No provider procedures requiring assistance completed. IV discontinued, intact, nj1 bleeding controlled. Administered Medications: 10:00 Drug: Aspirin PO Chewable Tablet 324 mg Route: PO; nj1 11:38 Follow up: Response: No adverse reaction nj1 Medication: 11:38 VIS not applicable for this client. nj1 Outcome: 10:59 Discharge ordered by . ms3 11:38 Discharged to home ambulatory, with significant other. nj1 11:38 Condition: stable 11:38 Discharge instructions given to patient, Instructed on discharge instructions, follow up and referral plans. Demonstrated understanding of instructions, follow-up care. 11:38 Patient left the ED. nj1 Signatures: Dispatcher [employer] EDOH Eloy Sánchez, DO ms3 Laura Sánchez RN RN ld1 Kemi Claudio RN RN nj1
[2022-12-15 12:03] VITALS: TEMP 98.1; O2SAT 100
[2022-12-15 12:14] VITALS: BP 132/90
--- NOTE | 2022-12-16 13:12 | EKG ---
Test Date: 2022-12-15 Test Time: 09:36:48 [employer] Supervisor: DAQUAN MEASUREMENT RESULTS: Intervals: Rate: 72 WI: 118 QRSD: 82 QT: 384 QTc: 420 [place]: P: 35 WI: 118 QRS: 65 T: 31 INTERPRETIVE STATEMENTS: Normal sinus rhythm Normal ECG Compared to ECG 02/18/2021 20:45:07 Sinus arrhythmia no longer present Electronically Signed On 12-16-22 13:10:34 CDT by Earl Wiley
== END 2022-12-15 11:38 | disposition home or self-care (01) ==
LOC: ER 09:25
DX: R07.89 Other chest pain (principal)
CPT/HCPCS: 36415; 71045; 80048; 81025; 83735; 84484; 85025; 93005; 99284

== ENCOUNTER 2023-01-09 02:19 | Emergency (ER) | payer OTHER ==
--- OUTSIDE RECORDS SUMMARY | 2023-01-09 02:22 | XMS REPORT | Continuity of Care Document ---
:2000 Author Organization [facility] t Address [address] [place] [address] [place] [id number] Care Team Providers Name Role Phone Pcp, Patient Does Not Have A Primary Care Physician [id number] DILLON FULLER Attending Clinician Unavailable Diana Doss PA-C Attending Clinician Dillon Fuller MD Attending Clinician Doctor Unassigned, [place] Attending Clinician Unavailable Chanel Mcdonald MD Attending Clinician CHANEL MCDONALD Attending Clinician Unavailable Candido Gutierrez DO Attending Clinician CANDIDO GUTIERREZ Attending Clinician Unavailable Payers Payer Name Policy Type Policy Number Effective Date Expiration Date [facility] [id number] 2018 [facility] MEDICAID 00:00:00 Problems Condition Condition Condition Status Onset Resolution Last Treating Co mments Source Name Details Category Date Date Treatment Clinician Date Irregular Irregular Disease Active Uni vers menstrual menstrual 7-20 ity of cycle cycle 00:00: [address] No known No known Disease Unive rs active active ity of problems problems [facility] Allergies, Adverse Reactions, Alerts Allergy Allergy Status Severity Reaction(s) Onset Inactive Treating Comm ents Source Name Type Date Date Clinician NO KNOWN Drug Active Univers ALLERGIE Class ity of S [facility] Social History Social Habit Start Date Stop Date Quantity Comments Source Exposure to Not sure University of SARS-CoV-2 [facility] (event) Branch Tobacco use and 2021-02-07 2021-02-07 Never used Universit y of exposure 00:00:00 00:00:00 [facility] Alcohol intake 2021-02-07 2021-02-07 1.43 /d University 00:00:00 00:00:00 [facility] History of 2021-01-31 [facility] Tobacco Comment 2020-12-06 2020-12-06 smokes 5 Universit y of 00:00:00 00:00:00 [facility] Sex Assigned At 2000 2000 Universit y of 00:00:00 00:00:00 [facility] Smoking Status Start Date Stop Date Source Former smoker 2021-02-07 00:00:00 2021-02-07 00:00:00 Universi ty of [facility] Current some day 2020-12-06 00:00:00 [facility] smoker Medical [place] [facility] Medications Ordered Filled Start Stop Current Ordering Indication Dosage Frequency Signature Comments Components Source Medication Medication Date Date Medication? Clinician (SIG) Name Name norelgestro Yes [id number] 1{patch Apply 1 Univers min-ethinyl 9-21 } Patch to ity of estradiol 00:00: [facility]) 00 weekly. Medical 150-35 Branch mcg/24 hr patch norelgestro Yes [id number] 1{patch Apply 1 Univers min-ethinyl 9-21 } Patch to ity of estradiol 00:00: [facility]) 00 weekly. Medical 150-35 Branch mcg/24 hr patch norelgestro Yes [id number] 1{patch Apply 1 Univers min-ethinyl 9-21 } Patch to ity of estradiol 00:00: [facility] ([facility]) 00 weekly. Medical 150-35 Branch mcg/24 hr patch norelgestro Yes [id number] 1{patch Apply 1 Univers min-ethinyl 9-21 } Patch to ity of estradiol 00:00: skin [place] ([facility]) 00 weekly. Medical 150-35 Branch mcg/24 hr patch metroNIDAZO Yes TAKE 4 Univ ers LE 500 mg 8-25 TABLETS BY ity of tablet 00:00: MOUTH ONCE [place] 00 NOW FOR 1 Medical DOSE. Branch metroNIDAZO Yes TAKE 4 Univ ers LE 500 mg 8-25 TABLETS BY ity of tablet 00:00: MOUTH ONCE [place] 00 NOW FOR 1 Medical DOSE. Branch metroNIDAZO Yes TAKE 4 Univ ers LE 500 mg 8-25 TABLETS BY ity of tablet 00:00: MOUTH ONCE [place] 00 NOW FOR 1 Medical DOSE. Branch metroNIDAZO Yes TAKE 4 Univ ers LE 500 mg 8-25 TABLETS BY ity of tablet 00:00: MOUTH ONCE [place] 00 NOW FOR 1 Medical DOSE. Branch cephALEXin Yes [id number] 500mg Take 1 Univers (KEFLEX) 3-21 capsule by ity o f 500 mg 00:00: mouth 3 [place] capsule 00 (three) Medical times Branch daily. cephALEXin Yes [id number] 500mg Take 1 Univers (KEFLEX) 3-21 capsule by ity o f 500 mg 00:00: mouth 3 [place] capsule 00 (three) Medical times Branch daily. cephALEXin 2020- No [id number] 500mg Take 1 Univers (KEFLEX) 3-21 07-20 capsule by ity of 500 mg 00:00: 00:00 mouth 3 [place] capsule 00 :00 (three) Medical times Branch daily. proMETHazin Yes [id number] 25mg Take 1 Univers e 25 mg 7-03 tablet by ity of tablet 00:00: mouth [place] 00 every 6 Medical (six) Branch hours as needed for Nausea and Vomiting (N/V). proMETHazin Yes [id number] 25mg Take 1 Univers e 25 mg 7-03 tablet by ity of tablet 00:00: mouth [place] 00 every 6 Medical (six) Branch hours as needed for Nausea and Vomiting (N/V). proMETHazin Yes [id number] 25mg Take 1 Univers e 25 mg 7-03 tablet by ity of tablet 00:00: mouth [place] 00 every 6 Medical (six) Branch hours as needed for Nausea and Vomiting (N/V). proMETHazin 2020- No [id number] 25mg Take 1 Univers e 25 mg 7-03 07-20 tablet by ity of tablet 00:00: 00:00 mouth [place] 00 :00 every 6 Medical (six) Branch hours as needed for Nausea and Vomiting (N/V). Vital Signs Vital Name Observation Time Observation Value Comments Source Systolic blood 2021-02-07 105 mm[Hg] University of pressure 20:05:00 [facility] Diastolic blood 2021-02-07 71 mm[Hg] University o f pressure 20:05:00 [facility] Heart rate 2021-02-07 85 /min University 20:05:00 [facility] Body temperature 2021-02-07 36.78 Melody University of 20:05:00 [facility] Respiratory rate 2021-02-07 16 /min University of 20:05:00 [facility] Body height 2021-02-07 157.5 cm University of 20:05:00 [facility] Body weight 2021-02-07 57.664 kg University of 20:05:00 [facility] BMI 2021-02-07 23.25 kg/m2 University of 20:05:00 [facility] Systolic blood 2020-12-06 124 mm[Hg] University of pressure 14:57:00 [facility] Diastolic blood 2020-12-06 71 mm[Hg] University o f pressure 14:57:00 [facility] Heart rate 2020-12-06 106 /min University of 14:57:00 [facility] Body temperature 2020-12-06 36.78 Melody University of 14:57:00 [facility] Respiratory rate 2020-12-06 18 /min University of 14:57:00 [facility] Body height 2020-12-06 154.9 cm University of 14:57:00 [facility] Body weight 2020-12-06 56.274 kg University of 14:57:00 [facility] BMI 2020-12-06 23.44 kg/m2 University of 14:57:00 [facility] Oxygen saturation 2020-08-07 100 /min [facility] in Arterial blood 12:30:00 [facility] Pulse oximetry Branch Heart rate 2020-08-07 110 /min University of 12:30:00 [facility] BMI 2020-08-07 23.62 kg/m2 University of 12:06:00 [facility] Systolic blood 2020-08-07 141 mm[Hg] University of pressure 12:06:00 [facility] Diastolic blood 2020-08-07 84 mm[Hg] University o f pressure 12:06:00 [facility] Body temperature 2020-08-07 37.06 Melody University of 12:06:00 [facility] Respiratory rate 2020-08-07 16 /min University of 12:06:00 [facility] Body height 2020-08-07 154.9 cm University of 12:06:00 [facility] Body weight 2020-08-07 56.7 kg Simultaneous University of 12:06:00 filing. User may [place] Medic al not have seen Branch previous data. Oxygen saturation 2020-08-07 100 /min University of in Arterial blood 12:30:00 [place] Medi tay by Pulse oximetry Branch Heart rate 2020-08-07 110 /min University of 12:30:00 [facility] BMI 2020-08-07 23.62 kg/m2 University of 12:06:00 [facility] Systolic blood 2020-08-07 141 mm[Hg] University of pressure 12:06:00 [facility] Diastolic blood 2020-08-07 84 mm[Hg] University o f pressure 12:06:00 [facility] Body temperature 2020-08-07 37.06 Melody University of 12:06:00 [facility] Respiratory rate 2020-08-07 16 /min University of 12:06:00 [facility] Body height 2020-08-07 154.9 cm University of 12:06:00 [facility] Body weight 2020-08-07 56.7 kg Simultaneous University of 12:06:00 filing. User may [place] Medic al not have seen Branch previous data. Systolic blood 2020-04-23 107 mm[Hg] University of pressure 01:00:00 [facility] Diastolic blood 2020-04-23 61 mm[Hg] University o f pressure 01:00:00 [facility] Heart rate 2020-04-23 76 /min University of 01:00:00 [facility] Respiratory rate 2020-04-23 11 /min University of 01:00:00 [facility] Oxygen saturation 2020-04-23 99 /min University of in Arterial blood 01:00:00 [place] Medi tay by Pulse oximetry Branch Body temperature 2020-04-22 36.72 Melody University of 22:41:00 [facility] Body weight 2020-04-22 52.164 kg University of 22:41:00 [facility] Systolic blood 2020-04-23 107 mm[Hg] University of pressure 01:00:00 [facility] Diastolic blood 2020-04-23 61 mm[Hg] [facility] pressure 01:00:00 [facility] Heart rate 2020-04-23 76 /min [facility] 01:00:00 [facility] Respiratory rate 2020-04-23 11 /min [facility] 01:00:00 [facility] Oxygen saturation 2020-04-23 99 /min [facility] Arterial blood 01:00:00 [facility] by Pulse oximetry [place] Body temperature 2020-04-22 36.72 Melody [facility] 22:41:00 [facility] Body weight 2020-04-22 52.164 kg [facility] :41:00 [facility] Procedures Procedure Date / Time Performing Clinician Source Performed CONSENT FOR 2021-02-07 05:01:00 Doctor Unassigned, Camila [facility] POCT TEST 2021-02-07 00:00:00 Diana Doss [facility] GC & CHLAMYDIA AMPLIFIED 2020-12-06 15:11:00 [facility] TRICHOMONAS AMPLIFIED 2020-12-06 15:11:00 [facility] ASSIGNMENT OF BENEFITS 2020-12-06 14:42:15 Doctor Unassigned, Camila [facility] POCT TEST 2020-12-06 00:00:00 Ramone Dillon [facility] URINALYSIS 2020-08-07 12:12:00 Eh [facility] POCT TEST 2020-08-07 12:12:00 Eh Chanel [facility] ADC / LCC - DRUG SCREEN 2020-08-07 12:12:00 Chanel Mcdonald [facility] LACTIC ACID WHOLE BLOOD 2020-08-07 12:09:00 Eh [facility] MAGNESIUM 2020-08-07 12:08:00 Eh [facility] HEPATIC FUNCTION PANEL 2020-08-07 12:08:00 Chanel Mcdonald [facility] ([id number]) (ALB,T.PRO,BILI Medical Branch T,BU/BC,ALT,AST,ALK PHOS) BASIC METABOLIC PANEL 2020-08-07 12:08:00 Eh Chanel [facility] (NA, K, CL, CO2, Medical Branch GLUCOSE, BUN, CREATININE, CA) CBC WITH DIFF 2020-08-07 12:08:00 Eh[facility]ly [facility] POCT GLUCOSE (AUTOMATED) 2020-08-07 12:06:00 Chanel Mcdonald [facility] URINALYSIS 2020-04-23 00:23[facility] 2020-04-22 22:56:00 [facility] TRIAGE [facility] COMP. METABOLIC PANEL 2020-04-22 22:53:00 [facility] ([id number]) [facility] SALICYLATE 2020-04-22 22:53:00 [facility] 2020-04-22 22:53:00 [facility] Encounters Start End Encounter Admission Attending Care Care Encounter Source Date/Time Date/Time Type Type Clinicians Facility Department ID 2021-02-16 2021-02-16 Outpatient R DILLON FULLER [facility] [id number] Univers 15:00:00 15:00:00 ity of [facility] 2021-02-07 2021-02-07 Office Diana Doss [facility] [id number]. [id number] Univers 14:50:27 15:20:27 Visit Dillon Fuller [id number] ity of Women's 4.2.7.2.686 [facility] [place] [facility] [id number] [facility] 134 Branch 2021-02-07 2021-02-07 Outpatient R DILLON FULLER [facility] [id number] Univers 15:00:00 15:00:00 ity [facility] 2021-02-07 2021-02-07 Orders Doctor GUZMAN [id number] Univers 00:00:00 00:00:00 Only Unassigned, ZAYRA [id number] ity of [place] [facility] 4.2.7.2.686 Alvaro [id number] [facility] 009 Branch 2021-01-09 2021-01-09 Telephone Dillon Fuller [facility] [id number] Univers 00:00:00 00:00:00 [place] [id number] it y of [place]7.2.686 [place] [facility] [id number] [facility] 134 [place] 2020-12-06 2020-12-06 Office Dillon Fuller [facility] [id number] Univers 09:43:25 13:05:32 Visit [place] [id number] it y of Women's 4.2.7.2.686 [facility] [place] [facility] [id number] [address] 2020-12-06 2020-12-06 Outpatient R DILLON FULLER [facility] [id number] [facility] 10:00:00 10:00:00 ity of [facility] 2020-12-06 2020-12-06 Orders Doctor GUZMAN [id number] Univers 00:00:00 00:00:00 Only Unassigned, ZAYRA [id number] ity of [place] [facility] 4.2.7.2.686 Alvaro [id number] [address] 2020-12-06 2020-12-06 Orders Doctor GUZMAN [id number] 00:00:00 00:00:00 Only Unassigned, ZAYRA [id number] [place] [facility] 4.2.7.2.686 [id number] [facility] 2020-08-07 2020-08-07 Emergency [facility] [id number] [facility] 07:07:00 08:22:00 Chanel Fabian [id number] i ty of [place] 4.2.7.2.686 [facility] [id number] [facility] 084 [place] 2020-08-07 2020-08-07 Emergency [facility] [id number] 07:07:00 08:22:00 Chanel Fabian [id number] [place] 4.2.7.2.686 [facility] [id number] [facility] 2020-08-07 2020-08-07 Emergency X EH [facility] ERT [id number] Univers 07:07:00 07:07:00 CHANEL holt [facility] 2020-04-22 2020-04-22 Emergency , [facility] [id number] Univers 16:38:00 19:41:00 Candido [place] [id number] i ty of [place] 4.2.7.2.686 [facility] [id number] [address] 2020-04-22 2020-04-22 [facility] [id number] 16:38:00 19:41:00 Candidoclark [place] [id number] [place] 4.2.7.2.686 [facility] [id number] [facility] 2020-04-22 2020-04-22 Emergency X [facility] ERT [id number] Univers 16:38:00 16:38:00 CANDIDO [facility] Results Test Description Test Time Test Comments Results Result Comments Source POCT TEST 2021-02-07 20:14:00 Test Item Value Reference Range Interpretation Comme nts POCT PREG (test code = 1605) Negative On board controls acceptable with C Line (test code = 3574) Yes POCT PREG LOT # (test code = 3575) POCT PREG TEST DATE (test code = 3576) [facility] [id number] 20:14:00 Test Item Value Reference Range Interpretation Comments POCT PREG (test code = 1605) Negative On board controls acceptable with C Yes Line (test code = 3574) POCT PREG LOT # (test code = 3575) POCT PREG TEST DATE (test code = 3576) [facility] [id number] 20:14:00 Test Item Value Reference Range Interpretation Comments POCT PREG (test code = 1605) Negative On board controls acceptable with C Yes Line (test code = 3574) POCT PREG LOT # (test code = 3575) POCT PREG TEST DATE (test code = 3576) [facility] CHLAMYDIA AMPLIFIED [id number] 19:35:20 Test Item Value Reference Range Interpretation Comments C. trachomatis Nucleic Negative Negative Acid (test code = 18295-4) N. gonorrhoeae Nucleic Negative Negative Acid (test code = 82467-1) SREE (test code = SREE) Reliable results are dependent on adequate specimen collection. ? A positive result obtained from a patient after therapeutic treatment cannot be interpreted as indicating the presence of viable organisms. ?For patients on whom a false positive result may have adverse psychosocial impact, retesting is advised. Indeterminate: Unable to generate a valid test result on this specimen. ?Please submit a new specimen for repeat testing if clinically indicated. Chlamydia trachomatis/Neisseria gonorrhoeae nucleic acid amplification testing (NAAT) has not been validated for medico-legal specimens (sexual abuse in yanick-pubertal and pre-pubertal children, sexual assault, and legal cases). ?Culture for Chlamydia trachomatis and/or Neisseria gonorrhoeae from clinically appropriate sites is the method of choice in these cases. ? Results from this testing should be interpreted in conjunction with other laboratory and clinical data available to the clinician.For females in general, a urine specimen is a second-line option because it is considered less sensitive than a cervical swab for Chlamydia trachomatis and/or Neisseria gonorrhoeae NAAT. Lab Interpretation Normal (test code = 01371-6) [facility]ICH[facility] AMPLIFIED [id number] 19:25:22 Test Item Value Reference Range Interpretation Comments Trichomonas Nucleic Positive Negative A Acid (test code = 88382-4) SREE (test code = SREE) Reliable results are dependent on adequate specimen collection. ? A positive result obtained from a patient after therapeutic treatment cannot be interpreted as indicating the presence of viable organisms. ?For patients on whom a false positive result may have adverse psychosocial impact, retesting is advised. Indeterminate: Unable to generate a valid test result on this specimen. ?Please submit a new specimen for repeat testing if clinically indicated. Trichomonas nucleic acid amplification testing (NAAT) has not been validated for medico-legal specimens (sexual abuse in yanick-pubertal and pre-pubertal children, sexual assault, and legal cases). ?Wet mount with microscopic observation and culture for Trichomonas vaginalis from clinically appropriate sites are the methods of choice in these cases. Results from this testing should be interpreted in conjunction with other laboratory and clinical data available to the clinician. Lab Interpretation Abnormal (test code = 74497-7) [facility] [id number] 15:13:00 Test Item Value Reference Range Interpretation Comments POCT PREG (test code = 1605) Negative On board controls acceptable with C Yes Line (test code = 3574) POCT PREG LOT # (test code = 3575) POCT PREG TEST DATE (test code = 3576) [facility] - DRUG SCREEN [id number] 13:11:01 Test Item Value Reference Range Interpretation Comments BENZO U (test code = Negative Negative 1310817311) JAGJIT U (test code = Negative Negative 4098931291) AMPHET (test code = Presumptive Positive Negative A 5847887523) THC (test code = Negative Negative 8758011848) METHADONE (test code = Negative Negative 6957769522) Meth U (test code = Presumptive Positive Negative A 6111462900) OPIATES (test code = Negative Negative 7319940594) Cocaine Metabolite (test Negative Negative code = 8146153986) PROPOXY (test code = Negative Negative 4581042557) Tric U (test code = Negative Negative 4872491935) PCP (test code = Negative Negative 0444513068) OXYCOD (test code = Negative Negative 0885037046) SREE (test code = SREE) Urine Drug Cutoff Ranges Benzodiazepines: ? ? 150 ng/mLBarbiturates: ?200 ng/mLAmphetamine: ? 500 ng/mLCannabinoids: ?50 ?ng/mLMethadone: ? 200 ng/mLMethamphetamine: ? ? 500 ng/mL Opiates: ? 100 ng/mL or 2000 ng/mLCocaine: ? 150 ng/mLPropoxyphene: ?300 ng/mLTricyclics: ?300 ng/mLOxycodone: ? 100 ng/mLPCP: ? 25 ?ng/mL The results are to be used only for medical (i.e., treatment) purposes. Unconfirmed screening results must not be used for non-medical purposes (e.g., employment testing, legal testing). Lab Interpretation (test Abnormal code = 75331-1) [facility] (ALB, T.PRO, BILI T, BU/BC, ALT, AST, ALK PHOS)2020-08-07 12:49:21 Test Item Value Reference Range Interpretation Comments TOTAL BILI (test code = 5799943803) 0.4 mg/dL 0.1-1.1 BILI UNCON (test code = 1965746905) 0.3 mg/dL 0.1-1.1 BILI CONJ (test code = 2777454040) 0.0 mg/dL 0.0-0.3 T PROTEIN (test code = 5445911287) 7.9 g/dL 6.3-8.2 ALBUMIN (test code = 1474516540) 4.7 g/dL 3.5-5.0 ALK PHOS (test code = 7802131292) 80 U/L 34-122 ALTv (test code = 1742-6) 10 U/L 5-35 AST(SGOT) (test code = 0555545190) 21 U/L 13-40 Lab Interpretation (test code = Normal 89021-0) [id number] 12:49:21 Test Item Value Reference Range Interpretation Comments MAGNESIUM (test code = 3902121476) 1.8 mg/dL 1.7-2.4 Lab Interpretation (test code = Normal 85246-8) [facility] (NA, K, CL, CO2, GLUCOSE, BUN, CREATININE, CA)2020-08-07 12:49:00 Test Item Value Reference Range Interpretation Comments NA (test code = 142 mmol/L 135-145 7404973440) K (test code = 3.6 mmol/L 3.5-5.0 2428482928) CL (test code = 106 mmol/L 98-108 2975600755) CO2 TOTAL (test code = 25 mmol/L 23-31 6664955015) AGAP (test code = 2-16 8001626194) BUN (test code = 10 mg/dL 7-23 7882929176) GLUCOSE (test code = 99 mg/dL 70-110 0550670768) CREATININE (test code 0.76 mg/dL 0.50-1.04 = 0176189144) CALCIUM (test code = 8.9 mg/dL 8.6-10.6 0727784521) eGFR Calculation mL/min/1.73m2 (Non-) (test code = 6951311907) eGFR Calculation mL/min/1.73m2 () (test code = 1818525403) SREE (test code = SREE) Association of Glomerular Filtration Rate (GFR) and Staging of Kidney Disease* + -+ + ---+| GFR (mL/min/1.73 m2) ?| With Kidney Damage ?| ?Without Kidney Damage+ -------+ ------+ ---------+| ?>90 ?| ?Stage one ?| ? Normal ?+ --+ -+ ----+| ?60-89 ?| ?Stage two ?| ? Decreased GFR ? + -+ + ---+| ?30-59 ?| ?Stage three ?| ? Stage three ? + -+ + ---+| ?15-29 ?| ?Stage four ? | ? Stage four ?+ --+ -+ ----+| ?<15 (or dialysis) ? ?| ?Stage five ? | ? Stage five ?+ --+ -+ ----+ *Each stage assumes the associated GFR level has been in effect for at least three months. ?Stages 1 to 5, with or without kidney disease, indicate chronic kidney disease. Notes: Determination of stages one and two (with eGFR >59mL/min/1.73 m2) requires estimation of kidney damage for at least three months as defined by structural or functional abnormalities of the kidney, manifested by either:Pathological abnormalities or Markers of kidney damage (including abnormalities in the composition of the blood or urine or abnormalities in imaging tests). [facility] [id number] 12:43:34 Test Item Value Reference Range Interpretation Comments APPEARANCE (test code = Hazy Clear A 1562955983) COLOR (test code = Yellow Yellow 3290954715) PH (test code = 4.8-8.0 0133991529) SP GRAVITY (test code = 1.003-1.030 3487731155) GLU U QUAL (test code = Normal Normal 6003631398) BLOOD (test code = Negative Negative 9784834456) KETONES (test code = Negative Negative 8348827396) PROTEIN (test code = 30 mg/dL Negative A 2887-8) UROBILIN (test code = 4.0 mg/dL Normal A 6748904688) BILIRUBIN (test code = Negative Negative 1961400410) NITRITE (test code = Negative Negative 2952597494) LEUK AMI (test code = 500/uL Negative A 3365704808) RBC/HPF (test code = See_Comment H [Autom ated message] 3958892343) The system [email or web address] generated this result transmit violet reference range : 0 - 3 HPF. The refe rence range was not u sed to interpret th is result as normal/abnormal . WBC/HPF (test code = See_Comment H [Autom ated message] 4847109531) The system [email or web address] generated this result transmit violet reference range : 0 - 5 HPF. The refe rence range was not u sed to interpret th is result as normal/abnormal . BACTERIA (test code = Few Negative A 1401956801) MUCOUS (test code = Moderate Negative LPF A 0267253457) SQ EPITH (test code = HPF 7936790929) HYAL CAST (test code = See_Comment [Aut omated message] 7422039838) The system [email or web address] generated this result transmit violet reference range : <=2 LPF. The refere nce range was not u sed to interpret th is result as normal/abnormal . Lab Interpretation (test Abnormal code = 88890-0) [facility] with [id number] 12:36:58 Test Item Value Reference Range Interpretation Comments WBC (test code = See_Comment [Automated 6690-2) message] The sy stem which generated this result transmitted reference range : 4.30 - 11.10 10*3/?L. The reference range was not used to interpret this result as normal/abnormal . RBC (test code = See_Comment [Automated 789-8) message] The sy stem which generated this result transmitted reference range : 3.93 - 5.25 10*6/?L. The reference range was not used to interpret this result as normal/abnormal . HGB (test code = 13.2 g/dL 11.6-15.0 718-7) HCT (test code = 39.7 % 35.7-45.2 4544-3) MCV (test code = 93.9 fL 80.6-95.5 787-2) MCH (test code = 31.2 pg 25.9-32.8 785-6) MCHC (test code = 33.2 g/dL 31.6-35.1 786-4) RDW-SD (test code = 44.4 fL 39.0-49.9 09175-9) RDW-CV (test code = 12.9 % 12.0-15.5 788-0) PLT (test code = See_Comment [Automated 777-3) message] The sy stem which generated this result transmitted reference range : 166 - 358 10*3/ ?L. The reference r kailyn was not used to interpret this result as normal/abnormal . MPV (test code = 9.9 fL 9.5-12.9 46591-6) NRBC/100 WBC (test See_Comment [Automat ed code = 8316580821) message] The system which generated this result transmitted reference range : 0.0 - 10.0 /100 WBCs. The refer ence range was not u sed to interpret th is result as normal/abnormal . NRBC x10^3 (test code <0.01 See_Comment [Auto mated = 9447609396) message] The s ystem which generated this result transmitted reference range : 10*3/?L. The reference range was not used to interpret this result as normal/abnormal . GRAN MAT (NEUT) % 48.9 % (test code = 770-8) IMM GRAN % (test code 0.40 % = 2691943903) LYMPH % (test code = 39.1 % 736-9) MONO % (test code = 8.4 % 5905-5) EOS % (test code = 2.4 % 713-8) BASO % (test code = 0.8 % 706-2) GRAN MAT x10^3(ANC) 4.66 10*3/uL 1.88-7.09 (test code = 0933863548) IMM GRAN x10^3 (test 0.04 10*3/uL 0.00-0.06 code = 1835882618) LYMPH x10^3 (test code 3.73 10*3/uL 1.32-3.29 H = 731-0) MONO x10^3 (test code 0.80 10*3/uL 0.33-0.92 = 742-7) EOS x10^3 (test code = 0.23 10*3/uL 0.03-0.39 711-2) BASO x10^3 (test code 0.08 10*3/uL 0.01-0.07 H = 704-7) Lab Interpretation Abnormal (test code = 00090-3) [facility] [id number] 12:16:25 Test Item Value Reference Range Interpretation Comments LACTIC ACID (test code = 2.19 mmol/L 0.50-2.20 1264633737) Lab Interpretation (test code = Normal 88454-4) [facility] [id number] 12:12:00 Test Item Value Reference Range Interpretation Comments POCT PREG (test code = 1605) negative On board controls acceptable with present C Line (test code = 3574) POCT PREG LOT # (test code = 3575) [id number] POCT PREG TEST DATE (test 2022-02-16 code = 3576) Lab Interpretation (test code = Normal 42166-4) [facility] GLUCOSE (AUTOMATED)2020-08-07 12:09:13 Test Item Value Reference Range Interpretation Comments POCT GLU (test code = 3820132218) 95 mg/dL 70-110 Lab Interpretation (test code = Normal 51182-2) [facility] 00:56:00 Test Item Value Reference Range Interpretation Comments APPEARANCE (test code = Clear Clear 8017062645) COLOR (test code = Yellow Yellow 8807060012) PH (test code = 4.8-8.0 8245761656) SP GRAVITY (test code = <=1.005 1.003-1.030 0685653347) GLU U QUAL (test code = Negative Negative 7362063132) BLOOD (test code = Negative Negative 2524292821) KETONES (test code = Negative Negative 6510117602) PROTEIN (test code = Negative Negative 2887-8) UROBILIN (test code = 1.0 mg/dL See_Comment [Auto mated message] 4340881046) The system [email or web address] generated this result transmit violet reference range : 0-1.0 mg/dL. Th e reference range was not used to interpret this result as normal/abnormal . BILIRUBIN (test code = Negative Negative 5609496075) NITRITE (test code = Negative Negative 6222103769) LEUK AMI (test code = Negative Negative 6466585236) RBC/HPF (test code = <1 See_Comment [Autom ated message] 9281367607) The system [email or web address] generated this result transmit violet reference range : 0 - 3 HPF. The refe rence range was not u sed to interpret th is result as normal/abnormal . WBC/HPF (test code = <1 See_Comment [Autom ated message] 9312038432) The system [email or web address] generated this result transmit violet reference range : 0 - 5 HPF. The refe rence range was not u sed to interpret th is result as normal/abnormal . BACTERIA (test code = Negative Negative 4966804571) Lab Interpretation (test Normal code = 70068-1) [facility]2020-12-05 00:16:00 Test Item Value Reference Range Interpretation Comments SALICYLATE (test code <10 mg/L = 8151351780) SREE (test code = SREE) Therapeutic Range: ? Analgesic and Antipyretic Use ? 20-100 mg/L ? ? Anti-Inflammatory Use ? 100-250 mg/L Toxic Range: ? Greater than 300 mg/L [facility]ET[facility]EN2020-12-05 00:15:00 Test Item Value Reference Range Interpretation Comments ACETAMINOP (test code = <10.0 10-30 L 1778386222) SREE (test code = SREE) Toxic: Greater than 200 ug/mL @ 4 hour post ingestion or greater than 50 ug/mL @ 12 hour post ingestion Lab Interpretation (test Abnormal code = 10830-4) [facility]ETHANOL2020-12-05 00:15:00 Test Item Value Reference Range Interpretation Comments ALCOHOL (test code = <10 mg/dL 1029621094) SREE (test code = SREE) <10 Sckmiegk62-060 Toxic>100 Depression of AGRICULTURAL REAL ESTATE AGENT>400 Fatalities Reported [facility]COM. METABOLIC PANEL (97847)2020-04-23 00:09:00 Test Item Value Reference Range Interpretation Comments NA (test code = 138 mmol/L 135-145 5563862090) K (test code = 3.9 mmol/L 3.5-5 8044524539) CL (test code = 101 mmol/L 98-108 7689152689) CO2 TOTAL (test code = 29 mmol/L 23-31 4815616400) AGAP (test code = 2-16 0318089324) BUN (test code = 11 mg/dL 7-23 9540439742) GLUCOSE (test code = 110 mg/dL 70-110 1695496199) CREATININE (test code 0.69 mg/dL 0.5-1.04 = 8849463816) TOTAL BILI (test code 0.7 mg/dL 0.1-1.1 = 8075801189) CALCIUM (test code = 10.1 mg/dL 8.6-10.6 5944279607) T PROTEIN (test code = 8.0 g/dL 6.3-8.2 0275204583) ALBUMIN (test code = 4.7 g/dL 3.5-5 3768835359) ALK PHOS (test code = 88 U/L 34-122 4706233354) ALTv (test code = 11 U/L 5-35 1742-6) AST(SGOT) (test code = 23 U/L 13-40 7412653965) eGFR Calculation mL/min/1.73m2 (Non-) (test code = 0221723213) eGFR Calculation mL/min/1.73m2 () (test code = 0550010079) SREE (test code = SREE) Association of Glomerular Filtration Rate (GFR) and Staging of Kidney Disease* + -+ + ---+| GFR (mL/min/1.73 m2) ?| With Kidney Damage ?| ?Without Kidney Damage+ -------+ ------+ ---------+| ?>90 ?| ?Stage one ?| ? Normal ?+ --+ -+ ----+| ?60-89 ?| ?Stage two ?| ? Decreased GFR ? + -+ + ---+| ?30-59 ?| ?Stage three ?| ? Stage three ? + -+ + ---+| ?15-29 ?| ?Stage four ? | ? Stage four ?+ --+ -+ ----+| ?<15 (or dialysis) ? ?| ?Stage five ? | ? Stage five ?+ --+ -+ ----+ *Each stage assumes the associated GFR level has been in effect for at least three months. ?Stages 1 to 5, with or without kidney disease, indicate chronic kidney disease. Notes: Determination of stages one and two (with eGFR >59mL/min/1.73 m2) requires estimation of kidney damage for at least three months as defined by structural or functional abnormalities of the kidney, manifested by either:Pathological abnormalities or Markers of kidney damage (including abnormalities in the composition of the blood or urine or abnormalities in imaging tests). [facility] / [facility] - DRUG SCREEN [id number] 23:25:00 Test Item Value Reference Range Interpretation Comments BENZO U (test code = Negative Negative 5744786949) JAGJIT U (test code = Negative Negative 3658777510) AMPHET (test code = Negative Negative 5001304743) THC (test code = Negative Negative 2867037258) METHADONE (test code = Negative Negative 6710234891) Meth U (test code = Negative Negative 3303770777) OPIATES (test code = Negative Negative 3171555945) Cocaine Metabolite (test Negative Negative code = 9849135713) PROPOXY (test code = Negative Negative 5138896121) Tric U (test code = Negative Negative 3042181792) PCP (test code = Negative Negative 1300955388) OXYCOD (test code = Negative Negative 7414242478) SREE (test code = SREE) Urine Drug Cutoff Ranges Benzodiazepines: ? ? 150 ng/mLBarbiturates: ?200 ng/mLAmphetamine: ? 500 ng/mLCannabinoids: ?50 ?ng/mLMethadone: ? 200 ng/mLMethamphetamine: ? ? 500 ng/mL Opiates: ? 100 ng/mL or 2000 ng/mLCocaine: ? 150 ng/mLPropoxyphene: ?300 ng/mLTricyclics: ?300 ng/mLOxycodone: ? 100 ng/mLPCP: ? 25 ?ng/mL The results are to be used only for medical (i.e., treatment) purposes. Unconfirmed screening results must not be used for non-medical purposes (e.g., employment testing, legal testing). Lab Interpretation (test Normal code = 01080-0) [facility]"
--- NOTE | 2023-01-09 04:36 | EDPHYS ---
Physician Documentation [facility] Name: Pedro Luis Ruano Age: 22 yrs Sex: Female : 2000 Arrival Date: 01/09/2023 Time: 02:19 Bed 8 Private MD: ED Physician Morena Balbuena HPI: 01/09 02:42 This 22 yrs old Black Female presents to ER via Ambulatory with complaints of Chest sp3 Pain, Blurred Vision, Difficulty Swallowing. 02:42 20-year-old female with history of seizures not on current medication now presents to [facility] the ED with vague symptoms of chest pain now resolving and body aches. Also mild episode of blurry vision which is also resolved. She has no other medical history and no significant past surgical history. On review of systems, she denies fever, known sick contacts, travel history, cough, neck pain, back pain, shortness of breath, abdominal pain, nausea, vomiting, diarrhea, syncope, near syncope, focal neurological deficit, rash, or any other signs or symptoms on ROS at this time.. 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 - Social history:: Smoking status: Reported history of juuling and/or vaping. ROS: 02:43 Eyes: Negative for injury, pain, redness, and discharge, ENT: Negative for injury, sp3 pain, and discharge, Neck: Negative for injury, pain, and swelling, Respiratory: Negative for shortness of breath, cough, wheezing, and pleuritic chest pain, Abdomen/GI: Negative for abdominal pain, nausea, vomiting, diarrhea, and constipation, Back: Negative for injury and pain, MS/Extremity: Negative for injury and deformity, Skin: Negative for injury, rash, and discoloration, Neuro: Negative for headache, weakness, numbness, tingling, and seizure. 02:43 All other systems are negative. Exam: 02:43 Constitutional: This is a well developed, well nourished patient who is awake, alert, sp3 and in no acute distress. Head/Face: Normocephalic, atraumatic. Eyes: Pupils equal round and reactive to light, extra-ocular motions intact. Lids and lashes normal. Conjunctiva and sclera are non-icteric and not injected. Cornea within normal limits. Periorbital areas with no swelling, redness, or edema. ENT: Nares patent. No nasal discharge, no septal abnormalities noted. External auditory canals are clear. Oropharynx with no redness, swelling, or masses, exudates, or evidence of obstruction, uvula midline. Mucous membranes moist. Neck: Trachea midline, no thyromegaly or masses palpated, and no cervical lymphadenopathy. Supple, full range of motion without nuchal rigidity, or vertebral point tenderness. No Meningismus. Chest/axilla: Normal chest wall appearance and motion. Nontender with no deformity. No lesions are appreciated. Cardiovascular: Regular rate and rhythm with a normal S1 and S2. No gallops, murmurs, or rubs. Normal PMI, no JVD. No pulse deficits. Respiratory: Lungs have equal breath sounds bilaterally, clear to auscultation and percussion. No rales, rhonchi or wheezes noted. No increased work of breathing, no retractions or nasal flaring. Abdomen/GI: Soft, non-tender, with normal bowel sounds. No distension or tympany. No guarding or rebound. No evidence of tenderness throughout. Back: No spinal tenderness. No costovertebral tenderness. Full range of motion. Skin: Warm, dry with normal turgor. Normal color with no rashes, no lesions, and no evidence of cellulitis. MS/ Extremity: Pulses equal, no cyanosis. Neurovascular intact. Full, normal range of motion. Neuro: Awake and alert, GCS 15, oriented to person, place, time, and situation. Cranial nerves II-XII grossly intact. Motor strength 5/5 in all extremities. Sensory grossly intact. Cerebellar exam normal. Normal gait. Psych: Awake, alert, with orientation to person, place and time. Behavior, mood, and affect are within normal limits. 02:43 ECG was reviewed by the Attending Physician. EKG demonstrates normal sinus rhythm at 74 bpm with normal intervals, normal QRS, normal axis, normal ST/T-segment's without evidence of acute ischemia. Vital Signs: 02:27 BP 137 / 74; Pulse 85; Resp 18; Temp 98.6(O); Pulse Ox 100% on R/A; Weight 71.67 kg; rv1 Height 5 ft. 2 in. ; Pain 5/10; 03:15 BP 118 / 76; Pulse 78; Resp 16; Pulse Ox 100% on R/A; kd3 03:42 BP 124 / 69; Pulse 82; Resp 18 S; Pulse Ox 100% on R/A; kd3 04:43 BP 123 / 66; Pulse 72; Resp 17; Temp 98; Pulse Ox 99% ; rv 02:27 Body Mass Index 28.90 (71.67 kg, 157.48 cm) rv1 02:27 Pain Scale: Adult rv1 [place] Coma Score: 04:43 Eye Response: spontaneous(4). Motor Response: obeys commands(6). Verbal Response: rv oriented(5). Total: 15. MDM: 02:32 Patient medically screened. sp3 02:44 Data reviewed: vital signs, nurses notes, lab test result(s), EKG, radiologic studies. sp3 ED course: 22-year-old female with vague symptoms of chest pain and malaise. EKG is normal. We will get a chest x-ray and swabs for COVID-19 and influenza. If work-up is negative we will safely discharge patient home. Vital signs are normal patient is in no acute distress. I do not believe this is acute coronary syndrome, sepsis, shock, pulmonary embolism, dissection or aneurysm, or any other critical or concerning pathology at this time.. 04:32 ED course: Influenza, COVID, chest x-ray and EKG are all negative. We will safely sp3 discharge patient home at this time.. 01/09 02:32 Order name: Flu sp3 01/09 02:32 Order name: SARS-COV-2 RT PCR; Complete Time: 04:11 sp3 01/09 02:32 Order name: XRAY Chest (1 view) sp3 01/09 02:32 Order name: EKG; Complete Time: 02:34 sp3 01/09 02:32 Order name: Cardiac monitoring; Complete Time: 02:41 sp3 01/09 02:32 Order name: EKG - Nurse/Tech; Complete Time: 02:37 sp3 01/09 02:32 Order name: O2 Sat Monitoring; Complete Time: 02:37 sp3 Administered Medications: No medications were administered Disposition Summary: 01/09/23 04:35 Discharge Ordered Location: Home sp3 Condition: Stable sp3 Diagnosis - Viral illness sp3 Followup: sp3 - With: Private Physician - When: Upon discharge from the Emergency Department - Reason: Continuance of care Discharge Instructions: - Discharge Summary Sheet sp3 - Viral Illness, Adult sp3 Forms: - Family Work Release rv - Medication Reconciliation Form sp3 - Thank You Letter sp3 - Antibiotic Education sp3 - Prescription Opioid Use sp3 - Patient Portal Instructions sp3 - Leadership Thank You Letter sp3 Signatures: Dispatcher [employer] Morena Muniz MD MD sp3 Huma Richard RN RN kd3
--- NOTE | 2023-01-09 04:36 | ER ---
Nurse's Notes [facility] Name: Pedro Luis Ruano Age: 22 yrs Sex: Female : 2000 Arrival Date: 01/09/2023 Time: 02:19 Bed 8 Private MD: Diagnosis: Viral illness Presentation: 01/09 02:28 Chief complaint: Patient states: I started having chest pain about an hour ago. It was kd3 worse earlier but it is now about a 5/10. It does not radiate. Coronavirus screen: Vaccine status: Patient reports being unvaccinated. Ebola Screen: No symptoms or risks identified at this time. Initial Sepsis Screen: Does the patient meet any 2 criteria? No. Patient's initial sepsis screen is negative. Does the patient have a suspected source of infection? No. Patient's initial sepsis screen is negative. Risk Assessment: Do you want to hurt yourself or someone else? Patient reports no desire to harm self or others. Onset of symptoms was January 09, 2023. 02:28 Method Of Arrival: Ambulatory kd3 02:28 Acuity: ALFREDA 3 kd3 Triage Assessment: 02:29 General: Appears in no apparent distress. Behavior is calm, cooperative. Pain: kd3 Complains of pain in anterior aspect of left upper chest. Cardiovascular: Patient's skin is warm and dry. 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 - Social history:: Smoking status: Reported history of juuling and/or vaping. Screenin:15 [facility] ED Fall Risk Assessment (Adult) History of falling in the last 3 months, kd3 including since admission No falls in past 3 months (0 pts) Confusion or Disorientation No (0 pts) Intoxicated or Sedated No (0 pts) Impaired Gait No (0 pts) Mobility Assist Device Used No (0 pt) Altered Elimination No (0 pt) Score/Fall Risk Level 0 - 2 = Low Risk Maintained a safe environment. Abuse screen: Denies threats or abuse. Denies injuries from another. Nutritional screening: No deficits noted. Tuberculosis screening: No symptoms or risk factors identified. Assessment: 03:15 General: Appears in no apparent distress. Behavior is calm, cooperative. Pain: kd3 Complains of pain in anterior aspect of left upper chest Pain does not radiate. Pain began suddenly. Neuro: Level of Consciousness is awake, alert, obeys commands, Oriented to person, place, time, situation. Cardiovascular: Patient's skin is warm and dry. Respiratory: Airway is patent Trachea midline Respiratory effort is even, unlabored, Respiratory pattern is regular, symmetrical. Vital Signs: 02:27 BP 137 / 74; Pulse 85; Resp 18; Temp 98.6(O); Pulse Ox 100% on R/A; Weight 71.67 kg; rv1 Height 5 ft. 2 in. ; Pain 5/10; 03:15 BP 118 / 76; Pulse 78; Resp 16; Pulse Ox 100% on R/A; kd3 03:42 BP 124 / 69; Pulse 82; Resp 18 S; Pulse Ox 100% on R/A; kd3 04:43 BP 123 / 66; Pulse 72; Resp 17; Temp 98; Pulse Ox 99% ; rv 02:27 Body Mass Index 28.90 (71.67 kg, 157.48 cm) rv1 02:27 Pain Scale: Adult rv1 [place] Coma Score: 04:43 Eye Response: spontaneous(4). Motor Response: obeys commands(6). Verbal Response: rv oriented(5). Total: 15. ED Course: 02:19 Patient arrived in ED. jj6 02:21 Morena Balbuena MD is Attending Physician. sp3 02:25 Huma Richard, MARGARITA is Primary Nurse. kd3 02:29 Triage completed. kd3 02:29 Arm band placed on right wrist. kd3 02:44 SARS-COV-2 RT PCR Sent. kd3 02:44 Flu Sent. kd3 02:58 XRAY Chest (1 view) In Process Unspecified. EDMS 03:15 Patient has correct armband on for positive identification. Provided Education on: . kd3 Client placed on continuous cardiac and pulse oximetry monitoring. NIBP monitoring applied. monitoring tech on. 03:15 No provider procedures requiring assistance completed. Inserted saline lock: 20 gauge kd3 in right antecubital area, using aseptic technique. Blood collected. Patient maintains SpO2 saturation greater than 95% on room air. 04:44 IV discontinued, intact, bleeding controlled, No redness/swelling at site. Pressure rv dressing applied. Administered Medications: No medications were administered Medication: 03:15 VIS not applicable for this client. kd3 Outcome: 04:35 Discharge ordered by . sp3 04:44 Discharged to home ambulatory, with family. rv 04:44 Condition: good 04:44 Condition: good 04:44 Discharge instructions given to patient, Instructed on discharge instructions, follow up and referral plans. Demonstrated understanding of instructions, follow-up care. 04:44 Patient left the ED. rv Signatures: Dispatcher [employer] Krishna Johns, RN RN rv Morena Balbuena MD MD sp3 Heidi Cook Kyli, RN RN kd3 Gale García rv1
[2023-01-09 04:55] VITALS: BP 123/66; TEMP 98; O2SAT 99
--- NOTE | 2023-01-09 10:52 | RAD REPORT ---
EXAM DESCRIPTION: RAD - Chest Single View - 01/09/2023 2:57 am CLINICAL HISTORY: Chest pain COMPARISON: None. TECHNIQUE: Chest 1 View AP FINDINGS: Trachea midline. Heart size and pulmonary vessels within normal limits. Lungs clear without evidence of consolidation, mass, or significant pulmonary edema. No significant pleural effusion or pneumothorax. Bones unremarkable. IMPRESSION: Normal chest radiograph. Electronically signed by: Ras Park MD 01/09/2023 3:15 AM CDT Due to temporary technical issues with the PACS/Fluency reporting system, reports are being signed by the in house radiologists without review as a courtesy to insure prompt reporting. The interpreting radiologist is fully responsible for the content of the report.
--- NOTE | 2023-01-09 12:56 | EKG ---
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
== END 2023-01-09 04:44 | disposition home or self-care (01) ==
LOC: ER 02:19
DX: B34.9 Viral infection, unspecified (principal); Z20.822 Contact with and (suspected) exposure to COVID-19
CPT/HCPCS: 71045; 87635; 87804; 93005

== ENCOUNTER 2023-03-06 04:25 | Emergency (ER) | payer OTHER ==
--- OUTSIDE RECORDS SUMMARY | 2023-03-06 04:29 | XMS REPORT | Continuity of Care Document ---
:2000 Author Organization [facility] t Address [address] [place] [address] [place] [id number] Care Team Providers Name Role Phone Pcp, Patient Does Not Have A Primary Care Physician [id number] DILLON FULLER Attending Clinician Unavailable Diana Doss PA-C Attending Clinician Dillon Fuller MD Attending Clinician Doctor Unassigned, [place] Attending Clinician Unavailable Chanel Mcdonald MD Attending Clinician CHANEL MCDONALD Attending Clinician Unavailable Candido Gutierrez DO Attending Clinician CANDIDO GUTIERREZ Attending Clinician Unavailable Payers Payer Name Policy Type Policy Number Effective Date Expiration Date [facility] [id number] 2018 [facility] MEDICAID 00:00:00 Problems Condition Condition Condition Status Onset Resolution Last Treating Co mments Source Name Details Category Date Date Treatment Clinician Date Irregular Irregular Disease Active Uni vers menstrual menstrual 7-20 ity of cycle cycle 00:00: [address] No known No known Disease Unive rs active active ity of problems problems [facility] Allergies, Adverse Reactions, Alerts Allergy Allergy Status Severity Reaction(s) Onset Inactive Treating Comm ents Source Name Type Date Date Clinician NO KNOWN Drug Active Univers ALLERGIE Class ity of S [facility] Social History Social Habit Start Date Stop Date Quantity Comments Source Exposure to Not sure University of SARS-CoV-2 [facility] (event) Branch Tobacco use and 2021-02-07 2021-02-07 Never used Universit y of exposure 00:00:00 00:00:00 [facility] Alcohol intake 2021-02-07 2021-02-07 1.43 /d University 00:00:00 00:00:00 [facility] History of 2021-01-31 [facility] Tobacco Comment 2020-12-06 2020-12-06 smokes 5 Universit y of 00:00:00 00:00:00 cigarettes per [facility] Branch Sex Assigned At 2000 2000 Universit y of 00:00:00 00:00:00 [facility] Smoking Status Start Date Stop Date Source Former smoker 2021-02-07 00:00:00 2021-02-07 00:00:00 Universi ty of [facility] Current some day 2020-12-06 00:00:00 [facility] smoker Medical [place] [facility] Medications Ordered Filled Start Stop Current Ordering Indication Dosage Frequency Signature Comments Components Source Medication Medication Date Date Medication? Clinician (SIG) Name Name norelgestro Yes [id number] 1{patch Apply 1 Univers min-ethinyl 9-21 } Patch to ity of estradiol 00:00: [facility]) 00 weekly. Medical 150-35 Branch mcg/24 hr patch norelgestro Yes [id number] 1{patch Apply 1 Univers min-ethinyl 9-21 } Patch to ity of estradiol 00:00: [facility]) 00 weekly. Medical 150-35 Branch mcg/24 hr patch norelgestro Yes [id number] 1{patch Apply 1 Univers min-ethinyl 9-21 } Patch to ity of estradiol 00:00: [facility] ([facility] 00 weekly. Medical 150-35 Branch mcg/24 hr patch norelgestro Yes [id number] 1{patch Apply 1 Univers min-ethinyl 9-21 } Patch to ity of estradiol 00:00: skin [place] ([facility] 00 weekly. Medical 150-35 Branch mcg/24 hr [...] FOR 1 Medical DOSE. Branch cephALEXin Yes [id number] 500mg Take 1 Univers (KEFLEX) 3-21 capsule by ity o f 500 mg 00:00: mouth 3 [place] capsule 00 (three) Medical times Branch daily. cephALEXin Yes [id number] 500mg Take 1 Univers (KEFLEX) 3-21 capsule by ity o f 500 mg 00:00: mouth 3 [place] capsule 00 (three) Medical times Branch daily. cephALEXin 2020- No [id number] 500mg Take 1 Univers (KEFLEX) 3-21 07-20 capsule by ity of 500 mg 00:00: 00:00 mouth 3 [place] capsule 00 :00 (three) Medical times Branch daily. proMETHazin Yes [id number] 25mg Take 1 Univers e 25 mg 7-03 tablet by ity of tablet 00:00: mouth [place] 00 every 6 Medical (six) Branch hours as needed for Nausea and Vomiting (N/V). proMETHazin Yes [id number] 25mg Take 1 Univers e 25 mg 7-03 tablet by ity of tablet 00:00: mouth [place] 00 every 6 Medical (six) Branch hours as needed for Nausea and Vomiting (N/V). proMETHazin Yes [id number] 25mg Take 1 Univers e 25 mg 7-03 tablet by ity of tablet 00:00: mouth [place] 00 every 6 Medical (six) Branch hours as needed for Nausea and Vomiting (N/V). proMETHazin 2020- No [id number] 25mg Take 1 Univers e 25 mg 7-03 07-20 tablet by ity of tablet 00:00: 00:00 mouth [place] 00 :00 every 6 Medical (six) Branch hours as needed for Nausea and Vomiting (N/V). Vital Signs Vital Name Observation Time Observation Value Comments Source Systolic blood 2021-02-07 105 mm[Hg] University of pressure 20:05:00 [facility] Diastolic blood 2021-02-07 71 mm[Hg] University o f pressure 20:05:00 [facility] Heart rate 2021-02-07 85 /min University 20:05:00 [facility] Body temperature 2021-02-07 36.78 Melody University of 20:05:00 [facility] Respiratory rate 2021-02-07 16 /min University of 20:05:00 [facility] Body height 2021-02-07 157.5 cm University of 20:05:00 [facility] Body weight 2021-02-07 57.664 kg University of 20:05:00 [facility] BMI 2021-02-07 23.25 kg/m2 University of 20:05:00 [facility] Systolic blood 2020-12-06 124 mm[Hg] University of pressure 14:57:00 [facility] Diastolic blood 2020-12-06 71 mm[Hg] University o f pressure 14:57:00 [facility] Heart rate 2020-12-06 106 /min University of 14:57:00 [facility] Body temperature 2020-12-06 36.78 Melody University of 14:57:00 [facility] Respiratory rate 2020-12-06 18 /min University of 14:57:00 [facility] Body height 2020-12-06 154.9 cm University of 14:57:00 [facility] Body weight 2020-12-06 56.274 kg University of 14:57:00 [facility] BMI 2020-12-06 23.44 kg/m2 University of 14:57:00 [facility] Oxygen saturation 2020-08-07 100 /min [facility] in Arterial blood 12:30:00 [facility] Pulse oximetry Branch Heart rate 2020-08-07 110 /min University of 12:30:00 [facility] BMI 2020-08-07 23.62 kg/m2 University of 12:06:00 [facility] Systolic blood 2020-08-07 141 mm[Hg] University of pressure 12:06:00 [facility] Diastolic blood 2020-08-07 84 mm[Hg] University o f pressure 12:06:00 [facility] Body temperature 2020-08-07 37.06 Melody University of 12:06:00 [facility] Respiratory rate 2020-08-07 16 /min University of 12:06:00 [facility] Body height 2020-08-07 154.9 cm University of 12:06:00 [facility] Body weight 2020-08-07 56.7 kg Simultaneous University of 12:06:00 filing. User may [place] Medic al not have seen Branch previous data. Oxygen saturation 2020-08-07 100 /min University of in Arterial blood 12:30:00 [place] Medi tay by Pulse oximetry Branch Heart rate 2020-08-07 110 /min University of 12:30:00 [facility] BMI 2020-08-07 23.62 kg/m2 University of 12:06:00 [facility] Systolic blood 2020-08-07 141 mm[Hg] University of pressure 12:06:00 [facility] Diastolic blood 2020-08-07 84 mm[Hg] University o f pressure 12:06:00 [facility] Body temperature 2020-08-07 37.06 Melody University of 12:06:00 [facility] Respiratory rate 2020-08-07 16 /min University of 12:06:00 [facility] Body height 2020-08-07 154.9 cm University of 12:06:00 [facility] Body weight 2020-08-07 56.7 kg Simultaneous University of 12:06:00 filing. User may [place] Medic al not have seen Branch previous data. Systolic blood 2020-04-23 107 mm[Hg] University of pressure 01:00:00 [facility] Diastolic blood 2020-04-23 61 mm[Hg] University o f pressure 01:00:00 [facility] Heart rate 2020-04-23 76 /min University of 01:00:00 [facility] Respiratory rate 2020-04-23 11 /min University of 01:00:00 [facility] Oxygen saturation 2020-04-23 99 /min University of in Arterial blood 01:00:00 [place] Medi tay by Pulse oximetry Branch Body temperature 2020-04-22 36.72 Melody University of 22:41:00 [facility] Body weight 2020-04-22 52.164 kg University of 22:41:00 [facility] Systolic blood 2020-04-23 107 mm[Hg] University of pressure 01:00:00 [facility] Diastolic blood 2020-04-23 61 mm[Hg] [facility] pressure 01:00:00 [facility] Heart rate 2020-04-23 76 /min [facility] 01:00:00 [facility] Respiratory rate 2020-04-23 11 /min [facility] 01:00:00 [facility] Oxygen saturation 2020-04-23 99 /min [facility] Arterial blood 01:00:00 [facility] by Pulse oximetry [place] Body temperature 2020-04-22 36.72 Melody [facility] 22:41:00 [facility] Body weight 2020-04-22 52.164 kg [facility] :41:00 [facility] Procedures Procedure Date / Time Performing Clinician Source Performed CONSENT FOR 2021-02-07 05:01:00 Doctor Unassigned, Camila [facility] POCT TEST 2021-02-07 00:00:00 Diana Doss [facility] GC & CHLAMYDIA AMPLIFIED 2020-12-06 15:11:00 FishDillon [facility] TRICHOMONAS AMPLIFIED 2020-12-06 15:11:00 [facility] Dillon [facility] ASSIGNMENT OF BENEFITS 2020-12-06 14:42:15 Doctor Unassigned, Camila [facility] POCT TEST 2020-12-06 00:00:00 Ramone Dillon [facility] URINALYSIS 2020-08-07 12:12:00 Eh [facility] POCT TEST 2020-08-07 12:12:00 Eh Chanel [facility] ADC / LCC - DRUG SCREEN 2020-08-07 12:12:00 Chanel Mcdonald [facility] LACTIC ACID WHOLE BLOOD 2020-08-07 12:09:00 Eh [facility] MAGNESIUM 2020-08-07 12:08:00 Eh [facility] HEPATIC FUNCTION PANEL 2020-08-07 12:08:00 Chanel Mcdonald [facility] ([id number]) (ALB,T.PRO,BILI Medical Branch T,BU/BC,ALT,AST,ALK PHOS) BASIC METABOLIC PANEL 2020-08-07 12:08:00 Eh Chanel [facility] (NA, K, CL, CO2, Medical Branch GLUCOSE, BUN, CREATININE, CA) CBC WITH DIFF 2020-08-07 12:08[facility]ATED) 2020-08-07 12:06:00 Chanel Mcdonald [facility] URINALYSIS 2020-04-23 00:23:[facility] - [facility] 2020-04-22 22:56:00 [facility] TRIAGE [facility] COMP. METABOLIC PANEL 2020-04-22 22:53:00 [facility] ([id number]) [facility] SALICYLATE 2020-04-22 22:53:00 [facility] ETHANOL 2020-04-22 22:53:00 [facility] Encounters Start End Encounter Admission Attending Care Care Encounter Source Date/Time Date/Time Type Type Clinicians Facility Department ID 2021-02-16 2021-02-16 Outpatient R DILLON FULLER [facility] [id number] Univers 15:00:00 15:00:00 ity of [facility] 2021-02-07 2021-02-07 Office Diana Doss [facility] [id number]. [id number] Univers 14:50:27 15:20:27 Visit Dillon Fuller [id number] ity of Women's 4.2.7.2.686 [facility] [id number] [facility] 134 Branch 2021-02-07 2021-02-07 Outpatient R DILLON FULLER [facility] [id number] Univers 15:00:00 15:00:00 ity [facility] 2021-02-07 2021-02-07 Orders Doctor GUZMAN [id number] Univers 00:00:00 00:00:00 Only Unassigned, ZAYRA [id number] ity of [place] [facility] 4.2.7.2.686 Alvaro [id number] [facility] 009 Branch 2021-01-09 2021-01-09 Telephone Dillon Fuller [facility] [id number] Univers 00:00:00 00:00:00 [place] [id number] it y of [place]7.2.686 [place] [facility] [id number] [facility] 134 [place] 2020-12-06 2020-12-06 Office Dillon Fuller [facility] [id number] Univers 09:43:25 13:05:32 Visit Emmett [id number] it y of Women's 4.2.7.2.686 [facility] [id number] [address] 2020-12-06 2020-12-06 Outpatient R DILLON FULLER [facility] [id number] [facility] 10:00:00 10:00:00 ity of [facility] 2020-12-06 2020-12-06 Orders Doctor GUZMAN [id number] Univers 00:00:00 00:00:00 Only Unassigned, ZAYRA [id number] ity of [place] [facility] 4.2.7.2.686 Alvaro [id number] [address] 2020-12-06 2020-12-06 Orders Doctor GUZMAN [id number] 00:00:00 00:00:00 Only Unassigned, ZAYRA [id number] [place] [facility] 4.2.7.2.686 [id number] [facility] 2020-08-07 2020-08-07 Emergency [facility] [id number] [facility] 07:07:00 08:22:00 Chanel Fabian [id number] i ty of [place] 4.2.7.2.686 [facility] [id number] [facility] 084 [place] 2020-08-07 2020-08-07 Emergency [facility] [id number] 07:07:00 08:22:00 Chanel Fabian [id number] [place] 4.2.7.2.686 [place] [id number] [facility] 2020-08-07 2020-08-07 Emergency X EH [facility] ERT [id number] Univers 07:07:00 07:07:00 CHANEL holt [facility] 2020-04-22 2020-04-22 Emergency , [facility] [id number] Univers 16:38:00 19:41:00 Candido [place] [id number] i ty of [place] 4.2.7.2.686 [facility] [id number] [address] 2020-04-22 2020-04-22 Emergency [facility] [id number] 16:38:00 19:41:00 Candidoclark [place] 350.1.13.10 [place] 4.2.7.2.686 [place] [id number] [facility] 2020-04-22 2020-04-22 Emergency X [facility] ERT [id number] Univers 16:38:00 16:38:00 CANDIDO [facility] Results Test Description Test Time Test Comments Results Result Comments Source POCT TEST 2021-02-07 20:14:00 Test Item Value Reference Range Interpretation Comme nts POCT PREG (test code = 1605) Negative On board controls acceptable with C Line (test code = 3574) Yes POCT PREG LOT # (test code = 3575) POCT PREG TEST DATE (test code = 3576) [facility] [id number] 20:14:00 Test Item Value Reference Range Interpretation Comments POCT PREG (test code = 1605) Negative On board controls acceptable with C Yes Line (test code = 3574) POCT PREG LOT # (test code = 3575) POCT PREG TEST DATE (test code = 3576) [facility] [id number] 20:14:00 Test Item Value Reference Range Interpretation Comments POCT PREG (test code = 1605) Negative On board controls acceptable with C Yes Line (test code = 3574) POCT PREG LOT # (test code = 3575) POCT PREG TEST DATE (test code = 3576) [facility] CHLAMYDIA AMPLIFIED [id number] 19:35:20 Test Item Value Reference Range Interpretation Comments C. trachomatis Nucleic Negative Negative Acid (test code = 31455-1) N. gonorrhoeae Nucleic Negative Negative Acid (test code = 06572-6) SREE (test code = SREE) Reliable results [...] NAAT. Lab Interpretation Normal (test code = 32361-4) [facility] Hospital[facility]ICH[facility]ONAS AMPLIFIED [id number] 19:25:22 Test Item Value Reference Range Interpretation Comments Trichomonas Nucleic Positive Negative A Acid (test code = 97301-5) SREE (test code = SREE) Reliable results [...] clinician. Lab Interpretation Abnormal (test code = 76140-7) [facility] [id number] 15:13:00 Test Item Value Reference Range Interpretation Comments POCT PREG (test code = 1605) Negative On board controls acceptable with C Yes Line (test code = 3574) POCT PREG LOT # (test code = 3575) POCT PREG TEST DATE (test code = 3576) [facility] - DRUG SCREEN [id number] 13:11:01 Test Item Value Reference Range Interpretation Comments BENZO U (test code = Negative Negative 1408230497) JAGJIT U (test code = Negative Negative 7377382637) AMPHET (test code = Presumptive Positive Negative A 6961532978) THC (test code = Negative Negative 1270560502) METHADONE (test code = Negative Negative 0704106874) Meth U (test code = Presumptive Positive Negative A 1961380619) OPIATES (test code = Negative Negative 4171933115) Cocaine Metabolite (test Negative Negative code = 2543745697) PROPOXY (test code = Negative Negative 6456776161) Tric U (test code = Negative Negative 9662544074) PCP (test code = Negative Negative 0689403940) OXYCOD (test code = Negative Negative 2518131052) SREE (test code = SREE) Urine Drug [...] testing). Lab Interpretation (test Abnormal code = 83652-0) [facility] (ALB, T.PRO, BILI T, BU/BC, ALT, AST, ALK PHOS)2020-08-07 12:49:21 Test Item Value Reference Range Interpretation Comments TOTAL BILI (test code = 6838148045) 0.4 mg/dL 0.1-1.1 BILI UNCON (test code = 7322302635) 0.3 mg/dL 0.1-1.1 BILI CONJ (test code = 4843510210) 0.0 mg/dL 0.0-0.3 T PROTEIN (test code = 5633666828) 7.9 g/dL 6.3-8.2 ALBUMIN (test code = 4926266987) 4.7 g/dL 3.5-5.0 ALK PHOS (test code = 5707085278) 80 U/L 34-122 ALTv (test code = 1742-6) 10 U/L 5-35 AST(SGOT) (test code = 3260590672) 21 U/L 13-40 Lab Interpretation (test code = Normal 50886-9) [id number] 12:49:21 Test Item Value Reference Range Interpretation Comments MAGNESIUM (test code = 9314037391) 1.8 mg/dL 1.7-2.4 Lab Interpretation (test code = Normal 14448-9) [facility] (NA, K, CL, CO2, GLUCOSE, BUN, CREATININE, CA)2020-08-07 12:49:00 Test Item Value Reference Range Interpretation Comments NA (test code = 142 mmol/L 135-145 0403576881) K (test code = 3.6 mmol/L 3.5-5.0 9726240396) CL (test code = 106 mmol/L 98-108 0477761894) CO2 TOTAL (test code = 25 mmol/L 23-31 2897174653) AGAP (test code = 2-16 5546281662) BUN (test code = 10 mg/dL 7-23 2554771109) GLUCOSE (test code = 99 mg/dL 70-110 5198675137) CREATININE (test code 0.76 mg/dL 0.50-1.04 = 9710774651) CALCIUM (test code = 8.9 mg/dL 8.6-10.6 5158962747) eGFR Calculation mL/min/1.73m2 (Non-) (test code = 9905166653) eGFR Calculation mL/min/1.73m2 () (test code = 3508025405) SREE (test code = SREE) Association of [...] or urine or abnormalities in imaging tests). [facility] [id number] 12:43:34 Test Item Value Reference Range Interpretation Comments APPEARANCE (test code = Hazy Clear A 5996139978) COLOR (test code = Yellow Yellow 6459556879) PH (test code = 4.8-8.0 5942677217) SP GRAVITY (test code = 1.003-1.030 4481449947) GLU U QUAL (test code = Normal Normal 0884714549) BLOOD (test code = Negative Negative 0111054820) KETONES (test code = Negative Negative 2869267854) PROTEIN (test code = 30 mg/dL Negative A 2887-8) UROBILIN (test code = 4.0 mg/dL Normal A 9181403158) BILIRUBIN (test code = Negative Negative 6489501975) NITRITE (test code = Negative Negative 7833522442) LEUK AMI (test code = 500/uL Negative A 7089376139) RBC/HPF (test code = See_Comment H [Autom ated message] 3200242875) The system [employer] generated this result transmit violet reference range : 0 - 3 HPF. The refe rence range was not u sed to interpret th is result as normal/abnormal . WBC/HPF (test code = See_Comment H [Autom ated message] 5381286958) The system [employer] generated this result transmit violet reference range : 0 - 5 HPF. The refe rence range was not u sed to interpret th is result as normal/abnormal . BACTERIA (test code = Few Negative A 9155208491) MUCOUS (test code = Moderate Negative LPF A 2264953200) SQ EPITH (test code = HPF 3969555971) HYAL CAST (test code = See_Comment [Aut omated message] 1294689775) The system [employer] generated this result transmit violet reference range : <=2 LPF. The refere nce range was not u sed to interpret th is result as normal/abnormal . Lab Interpretation (test Abnormal code = 55710-0) [facility] with [id number] 12:36:58 Test Item Value Reference Range Interpretation [...] RDW-SD (test code = 44.4 fL 39.0-49.9 35701-5) RDW-CV (test code = 12.9 % 12.0-15.5 788-0) PLT (test code = See_Comment [Automated 777-3) message] The sy stem which generated this result transmitted reference range : 166 - 358 10*3/ ?L. The reference r kailyn was not used to interpret this result as normal/abnormal . MPV (test code = 9.9 fL 9.5-12.9 33440-4) NRBC/100 WBC (test See_Comment [Automat ed code = 4495941549) message] The system which generated this result transmitted reference range : 0.0 - 10.0 /100 WBCs. The refer ence range was not u sed to interpret th is result as normal/abnormal . NRBC x10^3 (test code <0.01 See_Comment [Auto mated = 9687853983) message] The s ystem which generated this result transmitted reference range : 10*3/?L. The reference range was not used to interpret this result as normal/abnormal . GRAN MAT (NEUT) % 48.9 % (test code = 770-8) IMM GRAN % (test code 0.40 % = 4401094582) LYMPH % (test code = 39.1 % 736-9) MONO % (test code = 8.4 % 5905-5) EOS % (test code = 2.4 % 713-8) BASO % (test code = 0.8 % 706-2) GRAN MAT x10^3(ANC) 4.66 10*3/uL 1.88-7.09 (test code = 6439758221) IMM GRAN x10^3 (test 0.04 10*3/uL 0.00-0.06 code = 9662328880) LYMPH x10^3 (test code 3.73 10*3/uL 1.32-3.29 H = 731-0) MONO x10^3 (test code 0.80 10*3/uL 0.33-0.92 = 742-7) EOS x10^3 (test code = 0.23 10*3/uL 0.03-0.39 711-2) BASO x10^3 (test code 0.08 10*3/uL 0.01-0.07 H = 704-7) Lab Interpretation Abnormal (test code = 83573-4) [facility] HospitalLatxic Acid Whole [id number] 12:16:25 Test Item Value Reference Range Interpretation Comments LACTIC ACID (test code = 2.19 mmol/L 0.50-2.20 3080612747) Lab Interpretation (test code = Normal 16689-8) [facility] [id number] 12:12:00 Test Item Value Reference Range Interpretation Comments POCT PREG (test code = 1605) negative On board controls acceptable with present C Line (test code = 3574) POCT PREG LOT # (test code = 3575) [id number] POCT PREG TEST DATE (test 2022-02-16 code = 3576) Lab Interpretation (test code = Normal 40534-6) [facility] GLUCOSE (AUTOMATED)2020-08-07 12:09:13 Test Item Value Reference Range Interpretation Comments POCT GLU (test code = 7082432968) 95 mg/dL 70-110 Lab Interpretation (test code = Normal 54022-1) [facility]2020-12-05 00:56:00 Test Item Value Reference Range Interpretation Comments APPEARANCE (test code = Clear Clear 2426251533) COLOR (test code = Yellow Yellow 5353185886) PH (test code = 4.8-8.0 1965721859) SP GRAVITY (test code = <=1.005 1.003-1.030 8472752484) GLU U QUAL (test code = Negative Negative 0326857336) BLOOD (test code = Negative Negative [id number]) KETONES (test code = Negative Negative [id number]) PROTEIN (test code = Negative Negative 2887-8) UROBILIN (test code = 1.0 mg/dL See_Comment [Auto mated message] [id number]) The system [employer] generated this result transmit violet reference range : 0-1.0 mg/dL. Th e reference range was not used to interpret this result as normal/abnormal . BILIRUBIN (test code = Negative Negative 6106316039) NITRITE (test code = Negative Negative 5968367889) LEUK AMI (test code = Negative Negative 8896183553) RBC/HPF (test code = <1 See_Comment [Autom ated message] [id number]) The system [employer] generated this result transmit violet reference range : 0 - 3 HPF. The refe rence range was not u sed to interpret th is result as normal/abnormal . WBC/HPF (test code = <1 See_Comment [Autom ated message] [id number]) The system [employer] generated this result transmit violet reference range : 0 - 5 HPF. The refe rence range was not u sed to interpret th is result as normal/abnormal . BACTERIA (test code = Negative Negative 7475218740) Lab Interpretation (test Normal code = 52393-0) [facility] Test Item Value Reference Range Interpretation Comments SALICYLATE (test code <10 mg/L = 0553610912) SREE (test code = SREE) Therapeutic Range: ? Analgesic and Antipyretic Use ? 20-100 mg/L ? ? Anti-Inflammatory Use ? 100-250 mg/L Toxic Range: ? Greater than 300 mg/L [facility]2020-12-05 00:15:00 Test Item Value Reference Range Interpretation Comments ACETAMINOP (test code = <10.0 10-30 L [id number]) SREE (test code = SREE) Toxic: Greater than 200 ug/mL @ 4 hour post ingestion or greater than 50 ug/mL @ 12 hour post ingestion Lab Interpretation (test Abnormal code = 91031-7) [facility]-12[facility]05 00:15:00 Test Item Value Reference Range Interpretation Comments ALCOHOL (test code = <10 mg/dL 8888636072) SREE (test code = SREE) <10 [id number] Toxic>100 Depression of PROFESSIONAL ORGANIZER>400 Fatalities Reported [facility] MET[facility]OLIC PANEL (18480)2020-04-23 00:09:00 Test Item Value Reference Range Interpretation Comments NA (test code = 138 mmol/L 135-145 1262320273) K (test code = 3.9 mmol/L 3.5-5 1630356757) CL (test code = 101 mmol/L 98-108 3327552731) CO2 TOTAL (test code = 29 mmol/L 23-31 9950906541) AGAP (test code = 2-16 6036424535) BUN (test code = 11 mg/dL 7-23 3933422901) GLUCOSE (test code = 110 mg/dL 70-110 2033570282) CREATININE (test code 0.69 mg/dL 0.5-1.04 = 2563883776) TOTAL BILI (test code 0.7 mg/dL 0.1-1.1 = 2630761001) CALCIUM (test code = 10.1 mg/dL 8.6-10.6 2050155616) T PROTEIN (test code = 8.0 g/dL 6.3-8.2 5623962706) ALBUMIN (test code = 4.7 g/dL 3.5-5 5824262385) ALK PHOS (test code = 88 U/L 34-122 7224845187) ALTv (test code = 11 U/L 5-35 1742-6) AST(SGOT) (test code = 23 U/L 13-40 8669354829) eGFR Calculation mL/min/1.73m2 (Non-) (test code = 1584797858) eGFR Calculation mL/min/1.73m2 () (test code = 6858244971) SREE (test code = SREE) Association of [...] or urine or abnormalities in imaging tests). General acute hospital / [facility] - DR[facility] SCREEN [id number] 23:25:00 Test Item Value Reference Range Interpretation Comments BENZO U (test code = Negative Negative 0554840791) JAGJIT U (test code = Negative Negative 4741052297) AMPHET (test code = Negative Negative 4041451340) THC (test code = Negative Negative 8059552570) METHADONE (test code = Negative Negative 0682034071) Meth U (test code = Negative Negative 8013172667) OPIATES (test code = Negative Negative 1780105472) Cocaine Metabolite (test Negative Negative code = 3120223502) PROPOXY (test code = Negative Negative 8309724056) Tric U (test code = Negative Negative 7493900726) PCP (test code = Negative Negative 6910170019) OXYCOD (test code = Negative Negative 8291912467) SREE (test code = SREE) Urine Drug [...] testing). Lab Interpretation (test Normal code = 92165-9) [facility]"
--- NOTE | 2023-03-06 04:59 | ER ---
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 pt also c/o cough and ear pain. Coronavirus screen: At this time, the client does not indicate any symptoms associated with coronavirus-19. Ebola Screen: No symptoms or risks identified at this time. Initial Sepsis Screen: Does the patient meet any 2 criteria? No. Patient's initial sepsis screen is negative. Does the patient have a suspected source of infection? No. Patient's initial sepsis screen is negative. Risk Assessment: Do you want to hurt yourself or someone else? Patient reports no desire to harm self or others. Onset of symptoms was March 06, 2023. 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 - Social history:: Smoking status: Reported history of juuling and/or vaping. Screenin:03 [facility] ED Fall Risk Assessment (Adult) History of falling in the last 3 months, rv including since admission No falls in past 3 months (0 pts). [facility] ED Fall Risk Assessment (Adult) Score/Fall Risk Level 0 - 2 = Low Risk Oriented to surroundings, Maintained a safe environment, Educated pt \\T\\ family on fall prevention, incl call for assistance when getting out of bed, Assessed \\T\\ reinforced patient's understanding of fall precautions, Provided non-skid footwear, Hourly rounding (assess needs \\T\\ fall precautionary measures) done, Used ambulatory aids as needed (educated on \\T\\ assisted with), Used gait belt as appropriate. Abuse screen: Denies threats or abuse. Denies injuries from another. Nutritional screening: No deficits noted. Tuberculosis screening: No symptoms or risk factors identified. Assessment: 05:03 General: Appears comfortable, Behavior is calm, cooperative. Pain: Complains of pain in rv GENERALIZED. Neuro: Level of Consciousness is awake, alert, obeys commands, Oriented to person, place, time, situation. Cardiovascular: Capillary refill < 3 seconds Patient's skin is warm and dry. Respiratory: Airway is patent Respiratory effort is even, unlabored. GI: No signs and/or symptoms were reported involving the gastrointestinal system. : No signs and/or symptoms were reported regarding the genitourinary system. EENT: Ear canal. Derm: Skin is intact. Vital Signs: 04:37 BP 145 / 105; Pulse 89; Resp 18 S; Temp 97.7(TE); Pulse Ox 97% on R/A; Weight 68.04 kg as6 (R); Height 5 ft. 2 in. (R); Pain 8/10; 04:37 Body Mass Index 27.44 (68.04 kg, 157.48 cm) as6 04:37 Pain Scale: Adult as6 ED Course: 04:28 Patient arrived in ED. gm2 04:29 Marvin Darling MD is Attending Physician. ec2 04:30 Nelson Reid, MARGARITA is Primary Nurse. bp 04:39 Arm band placed on. as6 04:42 Triage completed. as6 05:03 Patient has correct armband on for positive identification. Client placed on continuous rv cardiac and pulse oximetry monitoring. NIBP monitoring applied. 05:03 No provider procedures requiring assistance completed. Patient did not have IV access rv during this emergency room visit. Administered Medications: No medications were administered Medication: 05:03 VIS not applicable for this client. rv Outcome: 04:58 Discharge ordered by . ec2 05:03 Discharged to home ambulatory, rv 05:03 Condition: good 05:03 Discharge instructions given to patient, Instructed on discharge instructions, follow up and referral plans. Demonstrated understanding of instructions, follow-up care, 05:05 Patient left the ED. rv Signatures: Nelson Reid, RN RN bp Krishna Rodriguez RN RN rv Junior Lane RN RN as6 Marvin Darling MD MD 2 Karine Chao 2
--- NOTE | 2023-03-06 04:59 | EDPHYS ---
Physician Documentation [facility] Name: Pedro Luis Ruano Age: 22 yrs Sex: Female : 2000 Arrival Date: 03/06/2023 Time: 04:25 Bed 5 Private MD: ED Physician Marvin Darling HPI: 03/06 04:55 This 22 yrs old Black Female presents to ER via Ambulatory with complaints of Ear Pain, ec2 Sore Throat, BODY TINGLING. 04:55 . ec2 04:56 Patient arrives today due to concern for viral symptoms. Patient has been having cough ec2 and cold symptoms along with sore throat, bilateral ear pain. No fevers or chills, no nausea or vomiting. Patient also reports that she feels generalized tingling, states that she has a history of pseudoseizures and was concerned about this. Patient reports otherwise normal state of health. Denies any urinary complaints or shortness of breath.. 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 - Social history:: Smoking status: Reported history of juuling and/or vaping. ROS: 04:56 Constitutional: URI s/s ec2 Exam: 04:56 Constitutional: GEN: NAD Head: atraumatic Eyes: EOMI Ears: External ears are normal. ec2 Bilateral TMs are clear. Mouth: No tonsillar exudates, no posterior pharyngeal erythema CV: regular rate LUNGS: no respiratory distress, no wheezes, no rales, no rhonchi ABD: non-distended SKIN: no evidence of rashes MSK: no evidence of trauma NEURO: Cranial nerves II through XII intact, strength intact in all 4 extremities, negative pronator drift Vital Signs: 04:37 BP 145 / 105; Pulse 89; Resp 18 S; Temp 97.7(TE); Pulse Ox 97% on R/A; Weight 68.04 kg as6 (R); Height 5 ft. 2 in. (R); Pain 8/10; 04:37 Body Mass Index 27.44 (68.04 kg, 157.48 cm) as6 04:37 Pain Scale: Adult as6 MDM: 04:29 Patient medically screened. ec2 04:56 Data reviewed: vital signs. ED course: Patient arrives today due to concern for viral ec2 symptoms. Examination remarkable for neuro intact individual is otherwise in no acute distress with reassuring examination. Clinically presentation consistent with viral symptoms. I would discharge patient home have him follow-up with primary care doctor. Additionally patient's generalized tingling not consistent with any neurologic process especially with the reassuring neurologic exam. I do not feel she would benefit from any lab work at this time. Additionally low suspicion for pneumonia, will defer chest x-ray.. Administered Medications: No medications were administered Disposition Summary: 03/06/23 04:58 Discharge Ordered Notes: Location: Home ec2 Condition: Stable ec2 Diagnosis - Viral Illness ec2 Discharge Instructions: - Discharge Summary Sheet ec2 - Viral Illness, Adult ec2 Forms: - Medication Reconciliation Form ec2 - Thank You Letter ec2 - Antibiotic Education ec2 - Prescription Opioid Use ec2 - Patient Portal Instructions ec2 - Leadership Thank You Letter ec2 Signatures: Junior Lane RN RN as6 Marvin Darling MD MD ec2
[2023-03-06 06:20] VITALS: BP 145/105; TEMP 97.7; O2SAT 97
== END 2023-03-06 05:05 | disposition home or self-care (01) ==
LOC: ER 04:25
DX: B34.9 Viral infection, unspecified (principal)

== ENCOUNTER 2023-03-07 01:12 | Emergency (ER) | payer OTHER ==
--- OUTSIDE RECORDS SUMMARY | 2023-03-07 01:16 | XMS REPORT | Continuity of Care Document ---
:2000 Author Organization [facility] t Address [address] [place] [address] [place] [id number] Care Team Providers Name Role Phone Pcp, Patient Does Not Have A Primary Care Physician [id number] DILLON FULLER Attending Clinician Unavailable Diana Doss PA-C Attending Clinician Dillon Fuller MD Attending Clinician Doctor Unassigned, [place] Attending Clinician Unavailable Chanel Mcdonald MD Attending Clinician CHANEL MCDONALD Attending Clinician Unavailable Candido Gutierrez DO Attending Clinician CANDIDO GUTIERREZ Attending Clinician Unavailable Payers Payer Name Policy Type Policy Number Effective Date Expiration Date [facility] [id number] 2018 [facility] MEDICAID 00:00:00 Problems Condition Condition Condition Status Onset Resolution Last Treating Co mments Source Name Details Category Date Date Treatment Clinician Date Irregular Irregular Disease Active Uni vers menstrual menstrual 7-20 ity of cycle cycle 00:00: [address] No known No known Disease Unive rs active active ity of problems problems [facility] Allergies, Adverse Reactions, Alerts Allergy Allergy Status Severity Reaction(s) Onset Inactive Treating Comm ents Source Name Type Date Date Clinician NO KNOWN Drug Active Univers ALLERGIE Class ity of S [facility] Social History Social Habit Start Date Stop Date Quantity Comments Source Exposure to Not sure University of SARS-CoV-2 [facility] (event) Branch Tobacco use and 2021-02-07 2021-02-07 Never used Universit y of exposure 00:00:00 00:00:00 [facility] Alcohol intake 2021-02-07 2021-02-07 1.43 /d University 00:00:00 00:00:00 [facility] History of 2021-01-31 [facility]00 [facility] Tobacco Comment 2020-12-06 2020-12-06 smokes 5 Universit y of 00:00:00 00:00:00 cigarettes per [facility] Branch Sex Assigned At 2000 2000 Universit y of 00:00:00 00:00:00 [facility] Smoking Status Start Date Stop Date Source Former smoker 2021-02-07 00:00:00 2021-02-07 00:00:00 Universi ty of [facility] Current some day 2020-12-06 00:00:00 [facility] smoker Medical [place] Unknown if ever smoked [facility] Medications Ordered Filled Start Stop Current Ordering Indication Dosage Frequency Signature Comments Components Source Medication Medication Date Date Medication? Clinician (SIG) Name Name norelgestro Yes [id number] 1{patch Apply 1 Univers min-ethinyl 9-21 } Patch to ity of estradiol 00:00: [facility]) 00 weekly. Medical 150-35 Branch mcg/24 hr patch norelgestro Yes [id number] 1{patch Apply 1 Univers min-ethinyl 9-21 } Patch to ity of estradiol 00:00: [facility]) 00 weekly. Medical 150-35 Branch mcg/24 hr patch norelgestro Yes [id number] 1{patch Apply 1 Univers min-ethinyl 9-21 } Patch to ity of estradiol 00:00: [facility] ([facility]) 00 weekly. Medical 150-35 Branch mcg/24 hr patch norelgestro Yes [id number] 1{patch Apply 1 Univers min-ethinyl 9-21 } Patch to ity of estradiol 00:00: skin [place] ([facility]) 00 weekly. Medical 150-35 Branch mcg/24 hr [...] FOR 1 Medical DOSE. Branch cephALEXin Yes [id number] 500mg Take 1 Univers (KEFLEX) 3-21 capsule by ity o f 500 mg 00:00: mouth 3 [place] capsule 00 (three) Medical times Branch daily. cephALEXin Yes [id number] 500mg Take 1 Univers (KEFLEX) 3-21 capsule by ity o f 500 mg 00:00: mouth 3 [place] capsule 00 (three) Medical times Branch daily. cephALEXin 2020- No [id number] 500mg Take 1 Univers (KEFLEX) 3-21 07-20 capsule by ity of 500 mg 00:00: 00:00 mouth 3 [place] capsule 00 :00 (three) Medical times Branch daily. proMETHazin Yes [id number] 25mg Take 1 Univers e 25 mg 7-03 tablet by ity of tablet 00:00: mouth [place] 00 every 6 Medical (six) Branch hours as needed for Nausea and Vomiting (N/V). proMETHazin Yes [id number] 25mg Take 1 Univers e 25 mg 7-03 tablet by ity of tablet 00:00: mouth [place] 00 every 6 Medical (six) Branch hours as needed for Nausea and Vomiting (N/V). proMETHazin Yes [id number] 25mg Take 1 Univers e 25 mg 7-03 tablet by ity of tablet 00:00: mouth [place] 00 every 6 Medical (six) Branch hours as needed for Nausea and Vomiting (N/V). proMETHazin 2020- No [id number] 25mg Take 1 Univers e 25 mg 7-03 07-20 tablet by ity of tablet 00:00: 00:00 mouth [place] 00 :00 every 6 Medical (six) Branch hours as needed for Nausea and Vomiting (N/V). Vital Signs Vital Name Observation Time Observation Value Comments Source Systolic blood 2021-02-07 105 mm[Hg] University of pressure 20:05:00 [facility] Diastolic blood 2021-02-07 71 mm[Hg] University o f pressure 20:05:00 [facility] Heart rate 2021-02-07 85 /min University 20:05:00 [facility] Body temperature 2021-02-07 36.78 Melody University of 20:05:00 [facility] Respiratory rate 2021-02-07 16 /min University of 20:05:00 [facility] Body height 2021-02-07 157.5 cm University of 20:05:00 [facility] Body weight 2021-02-07 57.664 kg University of 20:05:00 [facility] BMI 2021-02-07 23.25 kg/m2 University of 20:05:00 [facility] Systolic blood 2020-12-06 124 mm[Hg] University of pressure 14:57:00 [facility] Diastolic blood 2020-12-06 71 mm[Hg] University o f pressure 14:57:00 [facility] Heart rate 2020-12-06 106 /min University of 14:57:00 [facility] Body temperature 2020-12-06 36.78 Melody University of 14:57:00 [facility] Respiratory rate 2020-12-06 18 /min University of 14:57:00 [facility] Body height 2020-12-06 154.9 cm University of 14:57:00 [facility] Body weight 2020-12-06 56.274 kg University of 14:57:00 [facility] BMI 2020-12-06 23.44 kg/m2 University of 14:57:00 [facility] Oxygen saturation 2020-08-07 100 /min [facility] in Arterial blood 12:30:00 [facility] Pulse oximetry Branch Heart rate 2020-08-07 110 /min University of 12:30:00 [facility] BMI 2020-08-07 23.62 kg/m2 University of 12:06:00 [facility] Systolic blood 2020-08-07 141 mm[Hg] University of pressure 12:06:00 [facility] Diastolic blood 2020-08-07 84 mm[Hg] University o f pressure 12:06:00 [facility] Body temperature 2020-08-07 37.06 Melody University of 12:06:00 [facility] Respiratory rate 2020-08-07 16 /min University of 12:06:00 [facility] Body height 2020-08-07 154.9 cm University of 12:06:00 [facility] Body weight 2020-08-07 56.7 kg Simultaneous University of 12:06:00 filing. User may [place] Medic al not have seen Branch previous data. Oxygen saturation 2020-08-07 100 /min University of in Arterial blood 12:30:00 [place] Medi tay by Pulse oximetry Branch Heart rate 2020-08-07 110 /min University of 12:30:00 [facility] BMI 2020-08-07 23.62 kg/m2 University of 12:06:00 [facility] Systolic blood 2020-08-07 141 mm[Hg] University of pressure 12:06:00 [facility] Diastolic blood 2020-08-07 84 mm[Hg] University o f pressure 12:06:00 [facility] Body temperature 2020-08-07 37.06 Melody University of 12:06:00 [facility] Respiratory rate 2020-08-07 16 /min University of 12:06:00 [facility] Body height 2020-08-07 154.9 cm University of 12:06:00 [facility] Body weight 2020-08-07 56.7 kg Simultaneous University of 12:06:00 filing. User may [place] Medic al not have seen Branch previous data. Systolic blood 2020-04-23 107 mm[Hg] University of pressure 01:00:00 [facility] Diastolic blood 2020-04-23 61 mm[Hg] University o f pressure 01:00:00 [facility] Heart rate 2020-04-23 76 /min University of 01:00:00 [facility] Respiratory rate 2020-04-23 11 /min University of 01:00:00 [facility] Oxygen saturation 2020-04-23 99 /min University of in Arterial blood 01:00:00 [place] Medi tay by Pulse oximetry Branch Body temperature 2020-04-22 36.72 Melody University of 22:41:00 [facility] Body weight 2020-04-22 52.164 kg University of 22:41:00 [facility] Systolic blood 2020-04-23 107 mm[Hg] University of pressure 01:00:00 [facility] Diastolic blood 2020-04-23 61 mm[Hg] [facility] pressure 01:00:00 [facility] Heart rate 2020-04-23 76 /min [facility] 01:00:00 [facility] Respiratory rate 2020-04-23 11 /min [facility] 01:00:00 [facility] Oxygen saturation 2020-04-23 99 /min [facility] Arterial blood 01:00:00 [facility] by Pulse oximetry [place] Body temperature 2020-04-22 36.72 Melody [facility] 22:41:00 [facility] Body weight 2020-04-22 52.164 kg [facility] :41:00 [facility] Procedures Procedure Date / Time Performing Clinician Source Performed CONSENT FOR 2021-02-07 05:01:00 Doctor Unassigned, Camila [facility] POCT TEST 2021-02-07 00:00:00 Diana Doss [facility] GC & CHLAMYDIA AMPLIFIED 2020-12-06 15:11:00 Fish[facility] TRICHOMONAS AMPLIFIED 2020-12-06 15:11:00 [facility] Dillon [facility] ASSIGNMENT OF BENEFITS 2020-12-06 14:42:15 Doctor Unassigned, Camila [facility] POCT TEST 2020-12-06 00:00:00 Ramone Dillon [facility] URINALYSIS 2020-08-07 12:12:00 Eh [facility] POCT TEST 2020-08-07 12:12:00 Eh Chanel [facility] ADC / LCC - DRUG SCREEN 2020-08-07 12:12:00 Chanel Mcdonald [facility] LACTIC ACID WHOLE BLOOD 2020-08-07 12:09:[address] [facility] MAGNESIUM 2020-08-07 12:08:00 Eh [facility] HEPATIC FUNCTION PANEL 2020-08-07 12:08:00 Chanel [facility]cd[facility] ([id number]) (ALB,T.PRO,BILI Medical Branch T,BU/BC,ALT,AST,ALK PHOS) BASIC METABOLIC PANEL 2020-08-07 12:08:00 Eh Chanel [facility] (NA, K, CL, CO2, Medical Branch GLUCOSE, BUN, CREATININE, CA) CBC WITH DIFF 2020-08-07 12:08:00 [facility] [place] [facility] 2020-08-07 12:06:00 Chanel Mcdonald [facility] URINALYSIS 2020-04-23 00:23[facility] 2020-04-22 22:56:00 [facility] TRIAGE [facility] COMP. METABOLIC PANEL 2020-04-22 22:53:[address] [facility] ([id number]) [facility] SALICYLATE 2020-04-22 22:53[facility] 2020-04-22 22:53:00 [facility] [place] [facility] Encounters Start End Encounter Admission Attending Care Care Encounter Source Date/Time Date/Time Type Type Clinicians Facility Department ID 2021-02-16 2021-02-16 Outpatient R DILLON FULLER [facility] [id number] Univers 15:00:00 15:00:00 ity of [facility] 2021-02-07 2021-02-07 Office Diana Doss [facility] [id number]. [id number] Univers 14:50:27 15:20:27 Visit Dillon Fuller [id number] ity of Women's 4.2.7.2.686 [facility] [id number] [facility] 134 Branch 2021-02-07 2021-02-07 Outpatient R DILLON FULLER [facility] [id number] Univers 15:00:00 15:00:00 ity [facility] 2021-02-07 2021-02-07 Orders Doctor GUZMAN [id number] Univers 00:00:00 00:00:00 Only Unassigned, ZAYRA [id number] ity of [place] [facility] 4.2.7.2.686 Alvaro [id number] [facility] 009 Branch 2021-01-09 2021-01-09 Telephone Dillon Fuller [facility] [id number] Univers 00:00:00 00:00:00 [place] [id number] it y of [place].7.2.686 [place] [facility] [id number] [facility] 134 [place] 2020-12-06 2020-12-06 Office Dillon Fuller [facility] [id number] Univers 09:43:25 13:05:32 Visit [place] [id number] it y of Women's 4.2.7.2.686 [facility] [id number] [address] 2020-12-06 2020-12-06 Outpatient R DILLON FULLER [facility] [id number] [facility] 10:00:00 10:00:00 ity of [facility] 2020-12-06 2020-12-06 Orders Doctor GUZMAN [id number] Univers 00:00:00 00:00:00 Only Unassigned, ZAYRA [id number] ity of [place] [facility] 4.2.7.2.686 Alvaro [id number] [address] 2020-12-06 2020-12-06 Orders Doctor GUZMAN [id number] 00:00:00 00:00:00 Only Unassigned, ZAYRA [id number] [place] [facility] 4.2.7.2.686 [id number] [facility] 2020-08-07 2020-08-07 Emergency [facility] [id number] [facility] 07:07:00 08:22:00 Chanel Fabian [id number] i ty of [place] 4.2.7.2.686 [facility] [id number] [facility] 084 [place] 2020-08-07 2020-08-07 Emergency [facility] [id number] 07:07:00 08:22:00 Chanel Fabian [id number] [place] 4.2.7.2.686 [place] [id number] [facility] 2020-08-07 2020-08-07 Emergency X EH [facility] ERT [id number] Univers 07:07:00 07:07:00 CHANEL holt [facility] 2020-04-22 2020-04-22 Emergency , [facility] [id number] Univers 16:38:00 19:41:00 Candido [place] [id number] i ty of [place] 4.2.7.2.686 [facility] [id number] [address] 2020-04-22 2020-04-22 [facility] [id number] 16:38:00 19:41:00 Candidoclark [place] [id number] [place] 4.2.7.2.686 [place] [id number] [facility] 2020-04-22 2020-04-22 Emergency X [facility] ERT [id number] Univers 16:38:00 16:38:00 CANDIDO [facility] Results Test Description Test Time Test Comments Results Result Comments Source POCT TEST 2021-02-07 20:14:00 Test Item Value Reference Range Interpretation Comme nts POCT PREG (test code = 1605) Negative On board controls acceptable with C Line (test code = 3574) Yes POCT PREG LOT # (test code = 3575) POCT PREG TEST DATE (test code = 3576) [id number] 20:14:00 Test Item Value Reference Range Interpretation Comments POCT PREG (test code = 1605) Negative On board controls acceptable with C Yes Line (test code = 3574) POCT PREG LOT # (test code = 3575) POCT PREG TEST DATE (test code = 3576) [facility] [id number] 20:14:00 Test Item Value Reference Range Interpretation Comments POCT PREG (test code = 1605) Negative On board controls acceptable with C Yes Line (test code = 3574) POCT PREG LOT # (test code = 3575) POCT PREG TEST DATE (test code = 3576) [facility] CHLAMYDIA AMPLIFIED [id number] 19:35:20 Test Item Value Reference Range Interpretation Comments C. trachomatis Nucleic Negative Negative Acid (test code = 05813-6) N. gonorrhoeae Nucleic Negative Negative Acid (test code = 08199-1) SREE (test code = SREE) Reliable results [...] NAAT. Lab Interpretation Normal (test code = 24015-4) [facility] [id number] 19:25:22 Test Item Value Reference Range Interpretation Comments Trichomonas Nucleic Positive Negative A Acid (test code = 62120-6) SREE (test code = SREE) Reliable results [...] clinician. Lab Interpretation Abnormal (test code = 04514-2) [facility] [id number] 15:13:00 Test Item Value Reference Range Interpretation Comments POCT PREG (test code = 1605) Negative On board controls acceptable with C Yes Line (test code = 3574) POCT PREG LOT # (test code = 3575) POCT PREG TEST DATE (test code = 3576) [facility] [id number] 13:11:01 Test Item Value Reference Range Interpretation Comments BENZO U (test code = Negative Negative 0574745163) JAGJIT U (test code = Negative Negative 8580612826) AMPHET (test code = Presumptive Positive Negative A 8232834735) THC (test code = Negative Negative 9291942456) METHADONE (test code = Negative Negative 0911910159) Meth U (test code = Presumptive Positive Negative A 8302512090) OPIATES (test code = Negative Negative 7925617851) Cocaine Metabolite (test Negative Negative code = 1011845557) PROPOXY (test code = Negative Negative 8940192207) Tric U (test code = Negative Negative 2670923100) PCP (test code = Negative Negative 9320040186) OXYCOD (test code = Negative Negative 5415589788) SREE (test code = SREE) Urine Drug [...] testing). Lab Interpretation (test Abnormal code = 96628-5) [facility] (ALB, T.PRO, BILI T, BU/BC, ALT, AST, ALK PHOS)2020-08-07 12:49:21 Test Item Value Reference Range Interpretation Comments TOTAL BILI (test code = 6835117896) 0.4 mg/dL 0.1-1.1 BILI UNCON (test code = 8899726221) 0.3 mg/dL 0.1-1.1 BILI CONJ (test code = 9390678597) 0.0 mg/dL 0.0-0.3 T PROTEIN (test code = 5234512428) 7.9 g/dL 6.3-8.2 ALBUMIN (test code = 2282560507) 4.7 g/dL 3.5-5.0 ALK PHOS (test code = 1870168916) 80 U/L 34-122 ALTv (test code = 1742-6) 10 U/L 5-35 AST(SGOT) (test code = 1730250885) 21 U/L 13-40 Lab Interpretation (test code = Normal 38545-4) [facility]20[facility]-21 12:49:21 Test Item Value Reference Range Interpretation Comments MAGNESIUM (test code = 2920737262) 1.8 mg/dL 1.7-2.4 Lab Interpretation (test code = Normal 63265-3) [facility] (NA, K, CL, CO2, GLUCOSE, BUN, CREATININE, CA)2020-08-07 12:49:00 Test Item Value Reference Range Interpretation Comments NA (test code = 142 mmol/L 135-145 0487082518) K (test code = 3.6 mmol/L 3.5-5.0 4656914258) CL (test code = 106 mmol/L 98-108 7476938117) CO2 TOTAL (test code = 25 mmol/L 23-31 8109413687) AGAP (test code = 2-16 4696943696) BUN (test code = 10 mg/dL 7-23 1210331613) GLUCOSE (test code = 99 mg/dL 70-110 8223492157) CREATININE (test code 0.76 mg/dL 0.50-1.04 = 9612504162) CALCIUM (test code = 8.9 mg/dL 8.6-10.6 1271310596) eGFR Calculation mL/min/1.73m2 (Non-) (test code = 4184352317) eGFR Calculation mL/min/1.73m2 () (test code = 2593951564) SREE (test code = SREE) Association of [...] or urine or abnormalities in imaging tests). [facility] [id number] 12:43:34 Test Item Value Reference Range Interpretation Comments APPEARANCE (test code = Hazy Clear A 6552918521) COLOR (test code = Yellow Yellow 6521615457) PH (test code = 4.8-8.0 0928320173) SP GRAVITY (test code = 1.003-1.030 5276225110) GLU U QUAL (test code = Normal Normal 7141946041) BLOOD (test code = Negative Negative 9272180736) KETONES (test code = Negative Negative 9952901872) PROTEIN (test code = 30 mg/dL Negative A 2887-8) UROBILIN (test code = 4.0 mg/dL Normal A 4316341131) BILIRUBIN (test code = Negative Negative 7305230763) NITRITE (test code = Negative Negative 6547533800) LEUK AMI (test code = 500/uL Negative A 8520409080) RBC/HPF (test code = See_Comment H [Autom ated message] 9946426538) The system [employer] generated this result transmit violet reference range : 0 - 3 HPF. The refe rence range was not u sed to interpret th is result as normal/abnormal . WBC/HPF (test code = See_Comment H [Autom ated message] 5778901129) The system [employer] generated this result transmit violet reference range : 0 - 5 HPF. The refe rence range was not u sed to interpret th is result as normal/abnormal . BACTERIA (test code = Few Negative A 9023461901) MUCOUS (test code = Moderate Negative LPF A 9885306233) SQ EPITH (test code = HPF 8676347557) HYAL CAST (test code = See_Comment [Aut omated message] 0909797924) The system [employer] generated this result transmit violet reference range : <=2 LPF. The refere nce range was not u sed to interpret th is result as normal/abnormal . Lab Interpretation (test Abnormal code = 61491-1) [facility] with [id number] 12:36:58 Test Item Value Reference Range Interpretation [...] RDW-SD (test code = 44.4 fL 39.0-49.9 80653-4) RDW-CV (test code = 12.9 % 12.0-15.5 788-0) PLT (test code = See_Comment [Automated 777-3) message] The sy stem which generated this result transmitted reference range : 166 - 358 10*3/ ?L. The reference r kailyn was not used to interpret this result as normal/abnormal . MPV (test code = 9.9 fL 9.5-12.9 86279-9) NRBC/100 WBC (test See_Comment [Automat ed code = 1464574026) message] The system which generated this result transmitted reference range : 0.0 - 10.0 /100 WBCs. The refer ence range was not u sed to interpret th is result as normal/abnormal . NRBC x10^3 (test code <0.01 See_Comment [Auto mated = 4341134777) message] The s ystem which generated this result transmitted reference range : 10*3/?L. The reference range was not used to interpret this result as normal/abnormal . GRAN MAT (NEUT) % 48.9 % (test code = 770-8) IMM GRAN % (test code 0.40 % = 5016720037) LYMPH % (test code = 39.1 % 736-9) MONO % (test code = 8.4 % 5905-5) EOS % (test code = 2.4 % 713-8) BASO % (test code = 0.8 % 706-2) GRAN MAT x10^3(ANC) 4.66 10*3/uL 1.88-7.09 (test code = 8592637658) IMM GRAN x10^3 (test 0.04 10*3/uL 0.00-0.06 code = 0063402666) LYMPH x10^3 (test code 3.73 10*3/uL 1.32-3.29 H = 731-0) MONO x10^3 (test code 0.80 10*3/uL 0.33-0.92 = 742-7) EOS x10^3 (test code = 0.23 10*3/uL 0.03-0.39 711-2) BASO x10^3 (test code 0.08 10*3/uL 0.01-0.07 H = 704-7) Lab Interpretation Abnormal (test code = 03214-0) [facility] Whole [id number] 12:16:25 Test Item Value Reference Range Interpretation Comments LACTIC ACID (test code = 2.19 mmol/L 0.50-2.20 8526561641) Lab Interpretation (test code = Normal 52846-1) [facility] [id number] 12:12:00 Test Item Value Reference Range Interpretation Comments POCT PREG (test code = 1605) negative On board controls acceptable with present C Line (test code = 3574) POCT PREG LOT # (test code = 3575) [id number] POCT PREG TEST DATE (test 2022-02-16 code = 3576) Lab Interpretation (test code = Normal 25423-7) [facility] GLUCOSE (AUTOMATED)2020-08-07 12:09:13 Test Item Value Reference Range Interpretation Comments POCT GLU (test code = 6688646813) 95 mg/dL 70-110 Lab Interpretation (test code = Normal 66356-8) [place] [facility]-05 00:56:00 Test Item Value Reference Range Interpretation Comments APPEARANCE (test code = Clear Clear 5508769667) COLOR (test code = Yellow Yellow 2847957405) PH (test code = 4.8-8.0 1623071950) SP GRAVITY (test code = <=1.005 1.003-1.030 3558944319) GLU U QUAL (test code = Negative Negative 8595234945) BLOOD (test code = Negative Negative 5182953417) KETONES (test code = Negative Negative 3814005594) PROTEIN (test code = Negative Negative 2887-8) UROBILIN (test code = 1.0 mg/dL See_Comment [Auto mated message] [id number]) The system [employer] generated this result transmit violet reference range : 0-1.0 mg/dL. Th e reference range was not used to interpret this result as normal/abnormal . BILIRUBIN (test code = Negative Negative 8319377749) NITRITE (test code = Negative Negative 4784066826) LEUK AMI (test code = Negative Negative 0094705284) RBC/HPF (test code = <1 See_Comment [Autom ated message] 8372972165) The system [employer] generated this result transmit violet reference range : 0 - 3 HPF. The refe rence range was not u sed to interpret th is result as normal/abnormal . WBC/HPF (test code = <1 See_Comment [Autom ated message] 8177325588) The system [employer] generated this result transmit violet reference range : 0 - 5 HPF. The refe rence range was not u sed to interpret th is result as normal/abnormal . BACTERIA (test code = Negative Negative 3827506427) Lab Interpretation (test Normal code = 48109-8) [facility] Test Item Value Reference Range Interpretation Comments SALICYLATE (test code <10 mg/L = 8326389263) SREE (test code = SREE) Therapeutic Range: ? Analgesic and Antipyretic Use ? 20-100 mg/L ? ? Anti-Inflammatory Use ? 100-250 mg/L Toxic Range: ? Greater than 300 mg/L [facility]2020-12-05 00:15:00 Test Item Value Reference Range Interpretation Comments ACETAMINOP (test code = <10.0 10-30 L [id number]) SREE (test code = SREE) Toxic: Greater than 200 ug/mL @ 4 hour post ingestion or greater than 50 ug/mL @ 12 hour post ingestion Lab Interpretation (test Abnormal code = 43791-8) [facility] 00:15:00 Test Item Value Reference Range Interpretation Comments ALCOHOL (test code = <10 mg/dL 3959430473) SREE (test code = SREE) <10 [id number] Toxic>100 Depression of RN ORTHOPEDIC>400 Fatalities Reported [facility] METABOLIC PANEL (55030)2020-04-23 00:09:00 Test Item Value Reference Range Interpretation Comments NA (test code = 138 mmol/L 135-145 5183364541) K (test code = 3.9 mmol/L 3.5-5 5449153918) CL (test code = 101 mmol/L 98-108 1293605330) CO2 TOTAL (test code = 29 mmol/L 23-31 1467658380) AGAP (test code = 2-16 8834772115) BUN (test code = 11 mg/dL 7-23 7817074662) GLUCOSE (test code = 110 mg/dL 70-110 0919657938) CREATININE (test code 0.69 mg/dL 0.5-1.04 = 4663029878) TOTAL BILI (test code 0.7 mg/dL 0.1-1.1 = 5034763173) CALCIUM (test code = 10.1 mg/dL 8.6-10.6 9279650631) T PROTEIN (test code = 8.0 g/dL 6.3-8.2 6338746025) ALBUMIN (test code = 4.7 g/dL 3.5-5 9843188807) ALK PHOS (test code = 88 U/L 34-122 7791339154) ALTv (test code = 11 U/L 5-35 1742-6) AST(SGOT) (test code = 23 U/L 13-40 2856931279) eGFR Calculation mL/min/1.73m2 (Non-) (test code = 9518117772) eGFR Calculation mL/min/1.73m2 () (test code = 4849563333) SREE (test code = SREE) Association of [...] or urine or abnormalities in imaging tests). [facility] / [facility] - DRUG SCREEN [id number] 23:25:00 Test Item Value Reference Range Interpretation Comments BENZO U (test code = Negative Negative 5367166263) JAGJIT U (test code = Negative Negative 4482175605) AMPHET (test code = Negative Negative 6880462855) THC (test code = Negative Negative 3468464561) METHADONE (test code = Negative Negative 4168925926) Meth U (test code = Negative Negative 5450542408) OPIATES (test code = Negative Negative 7705604009) Cocaine Metabolite (test Negative Negative code = 7241080005) PROPOXY (test code = Negative Negative 8535298122) Tric U (test code = Negative Negative 2410062634) PCP (test code = Negative Negative 1642287316) OXYCOD (test code = Negative Negative 6071539292) SREE (test code = SREE) Urine Drug [...] testing). Lab Interpretation (test Normal code = 18037-4) [facility]"
[2023-03-07 02:08] LABS: SARS-CoV-2 Antigen Rapid Res Negative (Negative)
--- NOTE | 2023-03-07 02:14 | ER ---
Nurse's Notes [facility] Name: Pedro Luis Ruano Age: 22 yrs Sex: Female : 2000 Arrival Date: 03/07/2023 Time: 01:12 Bed 16 Private MD: Diagnosis: Acute upper respiratory infection, unspecified Presentation: 03/07 01:32 Chief complaint: Patient states: cough and ear pain. Coronavirus screen: At this time, as6 the client does not indicate any symptoms associated with coronavirus-19. Ebola Screen: No symptoms or risks identified at this time. Initial Sepsis Screen: Does the patient meet any 2 criteria? No. Patient's initial sepsis screen is negative. Does the patient have a suspected source of infection? No. Patient's initial sepsis screen is negative. Risk Assessment: Do you want to hurt yourself or someone else? Patient reports no desire to harm self or others. Onset of symptoms was March 04, 2023. 01:32 Method Of Arrival: Ambulatory as6 01:32 Acuity: ALFREDA 4 as6 Historical: - Allergies: 01:32 No Known Allergies; as6 - PMHx: 01:32 Anemia; Seizures; as6 - PSHx: 01:32 None; as6 - Immunization history:: Adult Immunizations up to date. - Social history:: Smoking status: Reported history of juuling and/or vaping. Screenin:28 [facility] ED Fall Risk Assessment (Adult) Score/Fall Risk Level 0 - 2 = Low Risk. Abuse as6 screen: Denies threats or abuse. Denies injuries from another. Nutritional screening: No deficits noted. Tuberculosis screening: No symptoms or risk factors identified. Assessment: 02:28 General: Appears in no apparent distress. Behavior is calm, cooperative. Pain: Denies as6 pain. Neuro: Level of Consciousness is awake, alert, obeys commands, Oriented to person, place, time, situation. Cardiovascular: Capillary refill < 3 seconds Patient's skin is warm and dry. Respiratory: Reports cough that is Respiratory effort is even, unlabored, Respiratory pattern is regular, symmetrical. Vital Signs: 01:31 BP 132 / 75; Pulse 92; Resp 18 S; Temp 98.2(O); Pulse Ox 100% on R/A; Weight 68.04 kg; as6 Height 5 ft. 2 in. ; Pain 0/10; 02:27 BP 121 / 72; Pulse 84; Resp 18 S; Pulse Ox 99% on R/A; as6 01:31 Body Mass Index 27.44 (68.04 kg, 157.48 cm) as6 01:31 Pain Scale: Adult as6 ED Course: 01:15 Patient arrived in ED. gm2 01:26 Pina Roy [facility]-C [facility]. sb4 01:26 Marvin Darling MD is Attending Physician. sb4 01:31 Arm band placed on. as6 01:32 Sonu Baez, RN is Primary Nurse. jj7 01:34 Triage completed. as6 01:50 Chest Pa And Lat (2 Views) XRAY In Process Unspecified. EDMS 02:28 Bed in low position. Call light in reach. Provided Education on: follow up, rx teaching as6 . 02:28 No provider procedures requiring assistance completed. Patient did not have IV access as6 during this emergency room visit. Administered Medications: No medications were administered Medication: 02:28 VIS not applicable for this client. as6 Outcome: 02:13 Discharge ordered by . sb4 02:28 Discharged to home ambulatory, with significant other, as6 02:28 Condition: stable 02:28 Discharge instructions given to patient, Instructed on discharge instructions, follow up and referral plans. medication usage, Demonstrated understanding of instructions, follow-up care, medications, Prescriptions given X 2, 02:30 Patient left the ED. as6 Signatures: Dispatcher [employer] [facility] Junior Lane RN RN as6 Sonu Baez RN RN jj7 Pina Roy PA-C PA-C sb4 Karine Chao gm2
--- NOTE | 2023-03-07 02:14 | EDPHYS ---
Physician Documentation [facility] Name: Pedro Luis Ruano Age: 22 yrs Sex: Female : 2000 Arrival Date: 03/07/2023 Time: 01:12 Bed 16 Private MD: ED Physician Marvin Darling HPI: 03/07 02:18 This 22 yrs old Black Female presents to ER via Ambulatory with complaints of Cough, sb4 Ear Pain. 02:18 The patient or guardian reports cough, that is intermittent, with no sputum. Onset: The sb4 symptoms/episode began/occurred 1 week(s) ago. Associated signs and symptoms: Pertinent positives: chest pain, earache, sore throat, Pertinent negatives: fever. The patient has not experienced similar symptoms in the past, but family has similar symptoms, significant other. The patient has been recently seen at the [facility] Emergency Department, yesterday, for similar complaints no workup done. Historical: - Allergies: 01:32 No Known Allergies; as6 - PMHx: 01:32 Anemia; Seizures; as6 - PSHx: 01:32 None; as6 - Immunization history:: Adult Immunizations up to date. - Social history:: Smoking status: Reported history of juuling and/or vaping. ROS: 02:18 Constitutional: Negative for fever, chills, and weight loss, sb4 02:18 ENT: Positive for ear pain, sore throat, 02:18 Respiratory: Positive for cough, 02:18 All other systems are negative, Exam: 02:18 Constitutional: This is a well developed, well nourished patient who is awake, alert, sb4 and in no acute distress. Head/Face: Normocephalic, atraumatic. Eyes: Extra-ocular motions intact. Periorbital areas with no swelling, redness, or edema. Cardiovascular: Regular rate and rhythm with a normal S1 and S2. Respiratory: Lungs have equal breath sounds bilaterally, clear to auscultation and percussion. No rales, rhonchi or wheezes noted. No increased work of breathing, no retractions or nasal flaring. Abdomen/GI: Soft, non-tender, no distension. Skin: Warm, dry with normal turgor. Normal color with no rashes, no lesions, and no evidence of cellulitis. MS/ Extremity: Pulses equal, no cyanosis. Neurovascular intact. Full, normal range of motion. Neuro: Awake and alert, GCS 15, oriented to person, place, time, and situation. Motor strength 5/5 in all extremities. Sensory grossly intact. 02:18 ENT: Exam is negative for ear discharge, ear swelling, TM abnormalities, nasal discharge, sinus tenderness, enlarged tonsils, pharyngitis, Vital Signs: 01:31 BP 132 / 75; Pulse 92; Resp 18 S; Temp 98.2(O); Pulse Ox 100% on R/A; Weight 68.04 kg; as6 Height 5 ft. 2 in. ; Pain 0/10; 02:27 BP 121 / 72; Pulse 84; Resp 18 S; Pulse Ox 99% on R/A; as6 01:31 Body Mass Index 27.44 (68.04 kg, 157.48 cm) as6 01:31 Pain Scale: Adult as6 MDM: 01:26 Patient medically screened. sb4 02:18 Differential Diagnosis: Bronchitis Influenza Upper Respiratory Infection Sinusitis sb4 Pharyngitis Viral Syndrome. Data reviewed: vital signs, nurses notes, lab test result(s), radiologic studies, and as a result, I will discharge patient. Counseling: I had a detailed discussion with the patient and/or guardian regarding the historical points, exam findings, and any diagnostic results supporting the discharge/admit diagnosis, lab results, radiology results, to return to the emergency department if symptoms worsen or persist or if there are any questions or concerns that arise at home. 03/07 01:32 Order name: SARS RAPID; Complete Time: 02:11 sb4 03/07 01:32 Order name: Flu; Complete Time: 02:14 sb4 03/07 01:32 Order name: Chest Pa And Lat (2 Views) XRAY sb4 Administered Medications: No medications were administered Disposition Summary: 03/07/23 02:13 Discharge Ordered Notes: Location: Home sb4 Problem: an ongoing problem sb4 Symptoms: are unchanged sb4 Condition: Stable sb4 Diagnosis - Acute upper respiratory infection, unspecified sb4 Followup: sb4 - With: Emergency Department - When: As needed - Reason: Trouble breathing, Worsening of condition Discharge Instructions: - Discharge Summary Sheet sb4 - Upper Respiratory Infection, Adult, [id number] sb4 Forms: - Work release form sb4 - Medication Reconciliation Form sb4 - Thank You Letter sb4 - Antibiotic Education sb4 - Prescription Opioid Use sb4 - Patient Portal Instructions sb4 - Leadership Thank You Letter sb4 Prescriptions: - Augmentin 875-125 mg Oral Tablet - take 1 tablet ORAL route every 12 hours for 10 days; 20 tablet; Refills: 0, sb4 Product Selection Permitted - Tessalon Perles 100 mg Oral Capsule - take 1 capsule ORAL route every 8 hours As needed; 15 capsule; Refills: 0, sb4 Product Selection Permitted Addendum: 03/08/2023 20:08 Co-signature as Attending Physician, Marvin Darling MD. e c2 Signatures: Dispatcher [employer] Junior Muñoz RN RN as6 Pina Roy, CONCHITA PARush sb4 Phong, MD TRU Wong ec2
[2023-03-07 03:24] VITALS: TEMP 98.2
[2023-03-07 03:31] VITALS: BP 121/72; O2SAT 99
--- NOTE | 2023-03-07 15:40 | RAD REPORT ---
EXAM DESCRIPTION: RAD - Chest Pa And Lat (2 Views) - 03/07/2023 1:48 am CLINICAL HISTORY: The patient is 22 years old and is Female; Congestion;Cough;Chest pain TECHNIQUE: Frontal and lateral views of the chest. COMPARISON: No relevant prior studies available. FINDINGS: Lungs: Unremarkable. No consolidation. Pleural space: Unremarkable. No pneumothorax. Heart: Unremarkable. Mediastinum: Unremarkable. Bones/joints: No acute findings. IMPRESSION: No acute findings in the chest. Electronically signed by: Elmer Gross MD 03/07/2023 2:03 AM CDT Due to temporary technical issues with the PACS/Fluency reporting system, reports are being signed by the in house radiologists without review as a courtesy to insure prompt reporting. The interpreting radiologist is fully responsible for the content of the report.
== END 2023-03-07 02:30 | disposition home or self-care (01) ==
LOC: ER 01:12
DX: J06.9 Acute upper respiratory infection, unspecified (principal); Z20.822 Contact with and (suspected) exposure to COVID-19
CPT/HCPCS: 36415; 71046; 87804; 87811; 99283

== ENCOUNTER 2023-03-14 09:22 | Emergency (ER) | payer OTHER ==
--- OUTSIDE RECORDS SUMMARY | 2023-03-14 09:27 | XMS REPORT | Continuity of Care Document ---
:2000 Author Organization [facility] t Address [address] [place] [address] [place] [id number] Care Team Providers Name Role Phone PCP, PATIENT DOES NOT HAVE A Primary Care Physician Unavaila SULMA Saldivar Attending Clinician Unavailable Sulma Do Attending Clinician DILLON FULLER Attending Clinician Unavailable Diana Doss PA-C Attending Clinician Dillon Fuller MD Attending Clinician Doctor Unassigned, [place] Attending Clinician Unavailable Chanel Mcdonald MD Attending Clinician CHANEL MCDONALD Attending Clinician Unavailable Candido Gutierrez DO Attending Clinician CANDIDO GUTIERREZ Attending Clinician Unavailable Payers Payer Name Policy Type Policy Number Effective Date Expiration Date [facility] [id number] 2018 [facility] STAR 00:00:00 Problems Condition Condition Condition Status Onset Resolution Last Treating Co mments Source Name Details Category Date Date Treatment Clinician Date Irregular Irregular Disease Active Uni vers menstrual menstrual 7-20 ity of cycle cycle 00:00: [address] No known No known Disease Unive rs active active ity of problems problems [facility] Allergies, Adverse Reactions, Alerts Allergy Allergy Status Severity Reaction(s) Onset Inactive Treating Comm ents Source Name Type Date Date Clinician NO KNOWN Drug Active Univers ALLERGIE Class ity of S [facility] Social History Social Habit Start Date Stop Date Quantity Comments Source Sexual orientation Univer sity [facility] Exposure to Not sure University of SARS-CoV-2 (event) [facility] Alcohol intake 2023-03-13 2023-03-13 1.43 /d University of 00:00:00 00:00:00 [facility] Tobacco use and 2021-02-07 2021-02-07 Smokeless tobacco Un iversity of exposure 00:00:00 00:00:00 non-user [facility] History of tobacco 2021-01-31 Cigarette Smoker University of use 00:00:00 [facility] Tobacco Comment 2020-12-06 2020-12-06 smokes 5 Universit y of 00:00:00 00:00:00 cigarettes per [facility] week Branch History of Social 2020-12-06 2020-12-06 Univers ity of function 00:00:00 00:00:00 [facility] Sex Assigned At 2000 2000 Universit y of 00:00:00 00:00:00 [facility] Smoking Status Start Date Stop Date Source Ex-smoker 2021-02-07 00:00:00 2021-02-07 [facility] Current some day 2020-12-06 00:00:00 [facility] smoker [facility] Unknown if ever smoked [facility] y [facility] Medications Ordered Filled Start Stop Current Ordering Indication Dosage Frequency Signature Comments Components Source Medication Medication Date Date Medication? Clinician (SIG) Name Name ondansetron 2022-05- No 4mg 4 mg, Univ ers (ZOFRAN-ODT 0-25 10-25 Oral, ity of ) 20:30: 21:17 ONCE, 1 [place] disintegrat 00 :00 dose, On Medi tay ing tablet [facility] Branch 4 mg 03/13/23 at 1530, PHI norelgestro Yes [id number] 1{patch Apply 1 Univers min-ethinyl 9-21 } Patch to ity of estradiol 00:00: skin [place] (XULANE) 00 weekly. Medical 150-35 Branch mcg/24 hr patch norelgestro 0 Yes [id number] 1{patch Apply 1 Univers min-ethinyl 9-21 } Patch to ity of estradiol 00:00: skin [place] (XULANE) 00 weekly. Medical 150-35 Branch mcg/24 hr patch norelgestro 2020-0 Yes [id number] 1{patch Apply 1 Univers min-ethinyl 9-21 } Patch to ity of estradiol 00:00: skin [place] ([facility]) 00 weekly. Medical 150-35 Branch mcg/24 hr patch norelgestro 2020-0 Yes [id number] 1{patch Apply 1 Univers min-ethinyl 9-21 } Patch to ity of estradiol 00:00: [facility] ([facility]) 00 weekly. Medical 150-35 Branch mcg/24 hr patch norelgestro 2020-0 Yes [id number] 1{patch Apply 1 Univers min-ethinyl 9-21 } Patch to ity of estradiol 00:00: [facility] ([facility]) 00 weekly. Medical 150-35 Branch mcg/24 hr patch metroNIDAZO Yes TAKE 4 Univ ers LE 500 mg 8-25 TABLETS BY ity of tablet 00:00: MOUTH ONCE [place] [address] NOW FOR 1 Medical DOSE. Branch metroNIDAZO Yes TAKE 4 Univ ers LE 500 mg 8-25 TABLETS BY ity of tablet 00:00: MOUTH ONCE [place] 00 NOW FOR 1 Medical DOSE. Branch metroNIDAZO 0 Yes TAKE 4 Univ ers LE 500 mg 8-25 TABLETS BY ity of tablet 00:00: MOUTH ONCE [place] 00 NOW FOR 1 Medical DOSE. Branch metroNIDAZO Yes TAKE 4 Univ ers LE 500 mg 8-25 TABLETS BY ity of tablet 00:00: MOUTH ONCE [place] 00 NOW FOR 1 Medical DOSE. Branch metroNIDAZO 0 Yes TAKE 4 Univ ers LE 500 mg 8-25 TABLETS BY ity of tablet 00:00: MOUTH ONCE [place] 00 NOW FOR 1 Medical DOSE. Branch cephALEXin Yes [id number] 500mg Take 1 Univers (KEFLEX) 3-21 capsule by ity o f 500 mg 00:00: mouth 3 [place] capsule 00 (three) Medical times [place] daily. cephALEXin 2020-0 Yes [id number] 500mg Take 1 Univers (KEFLEX) 3-21 capsule by ity o f 500 mg 00:00: mouth 3 [place] capsule 00 (three) Medical times [place] daily. cephALEXin 2020-0 2020- No [id number] 500mg Take 1 Univers (KEFLEX) 3-21 07-20 capsule by ity of 500 mg 00:00: 00:00 mouth 3 [place] capsule 00 :00 (three) Medical times Branch daily. proMETHazin Yes [id number] 25mg Take 1 Univers e 25 mg 7-03 tablet by ity of tablet 00:00: mouth [place] 00 every 6 Medical (six) Branch hours as needed for Nausea and Vomiting (N/V). proMETHazin Yes [id number] 25mg Take 1 Univers e 25 mg 7-03 tablet by ity of tablet 00:00: mouth [place] 00 every 6 Medical (six) Branch hours as needed for Nausea and Vomiting (N/V). proMETHazin Yes [id number] 25mg Take 1 Univers e 25 mg 7-03 tablet by ity of tablet 00:00: mouth [place] 00 every 6 Medical (six) Branch hours as needed for Nausea and Vomiting (N/V). proMETHazin 2020- No [id number] 25mg Take 1 Univers e 25 mg 7-07 24-20 tablet by ity of tablet 00:00: 00:00 mouth [place] 00 :00 every 6 Medical (six) Branch hours as needed for Nausea and Vomiting (N/V). Vital Signs Vital Name Observation Time Observation Value Comments Source Systolic blood 2023-03-13 154 mm[Hg] University of pressure 21:16:06 [facility] Diastolic blood 2023-03-13 93 mm[Hg] [place] o f pressure 21:16:06 [facility] Heart rate 2023-03-13 92 /min [facility] 21:16:06 [facility] Body temperature 2023-03-13 36.78 Melody [facility] 21:16:06 [facility] Respiratory rate 2023-03-13 18 /min [facility] 21:16:06 [facility] Oxygen saturation 2023-03-13 98 /min [facility] Arterial blood 21:16:06 [facility] by Pulse oximetry [place] Body height 2023-03-13 157.5 cm [facility] 19:02:00 [facility] Body weight 2023-03-13 67.223 kg [facility] 19:02:00 [facility] BMI 2023-03-13 27.11 kg/m2 [facility] 19:02:00 [facility] Systolic blood 2021-02-07 105 mm[Hg] University of pressure 20:05:00 [facility] Diastolic blood 2021-02-07 71 mm[Hg] University o f pressure 20:05:00 [facility] Heart rate 2021-02-07 85 /min University of 20:05:00 [facility] Body temperature 2021-02-07 36.78 Melody University of 20:05:00 [facility] Respiratory rate 2021-02-07 16 /min University of 20:05:00 [facility] Body height 2021-02-07 157.5 cm University of 20:05:00 [facility] Body weight 2021-02-07 57.664 kg University of 20:05:00 [facility] BMI 2021-02-07 23.25 kg/m2 University of 20:05:00 [facility] Systolic blood 2020-12-06 124 mm[Hg] University of pressure 14:57:00 [facility] Diastolic blood 2020-12-06 71 mm[Hg] University o f pressure 14:57:00 [facility] Heart rate 2020-12-06 106 /min University of 14:57:00 [facility] Body temperature 2020-12-06 36.78 Melody University of 14:57:00 [facility] Respiratory rate 2020-12-06 18 /min University of 14:57:00 [facility] Body height 2020-12-06 154.9 cm University of 14:57:00 [facility] Body weight 2020-12-06 56.274 kg University of 14:57:00 [facility] BMI 2020-12-06 23.44 kg/m2 University of 14:57:00 [facility] Heart rate 2020-08-07 110 /min University of 12:30:00 [facility] Oxygen saturation 2020-08-07 100 /min University in Arterial blood 12:30:00 [facility] by Pulse oximetry Branch BMI 2020-08-07 23.62 kg/m2 University of 12:06:00 [facility] Systolic blood 2020-08-07 141 mm[Hg] University of pressure 12:06:00 [facility] Diastolic blood 2020-08-07 84 mm[Hg] University o f pressure 12:06:00 [facility] Body temperature 2020-08-07 37.06 Melody University of 12:06:00 [facility] Respiratory rate 2020-08-07 16 /min University of 12:06:00 [facility] Body height 2020-08-07 154.9 cm University of 12:06:00 [facility] Body weight 2020-08-07 56.7 kg Simultaneous University of 12:06:00 filing. User may [place] Medic al not have seen Branch previous data. Heart rate 2020-08-07 110 /min University of 12:30:00 [facility] Oxygen saturation 2020-08-07 100 /min University of in Arterial blood 12:30:00 [place] Medi tay by Pulse oximetry Branch BMI 2020-08-07 23.62 kg/m2 University of 12:06:00 [facility] Systolic blood 2020-08-07 141 mm[Hg] University of pressure 12:06:00 [facility] Diastolic blood 2020-08-07 84 mm[Hg] University o f pressure 12:06:00 [facility] Body temperature 2020-08-07 37.06 Melody University of 12:06:00 [facility] Respiratory rate 2020-08-07 16 /min University of 12:06:00 [facility] Body height 2020-08-07 154.9 cm University of 12:06:00 [facility] Body weight 2020-08-07 56.7 kg Simultaneous University of 12:06:00 filing. User may [place] Medic al not have seen Branch previous data. Systolic blood 2020-04-23 107 mm[Hg] University of pressure 01:00:00 [facility] Diastolic blood 2020-04-23 61 mm[Hg] University o f pressure 01:00:00 [facility] Heart rate 2020-04-23 76 /min University of 01:00:00 [facility] Respiratory rate 2020-04-23 11 /min University of 01:00:00 [facility] Oxygen saturation 2020-04-23 99 /min University of in Arterial blood 01:00:00 [place] Medi tay by Pulse oximetry Branch Body temperature 2020-04-22 36.72 Melody University of 22:41:00 [facility] Body weight 2020-04-22 52.164 kg University of 22:41:00 [facility] Systolic blood 2020-04-23 107 mm[Hg] University of pressure 01:00:00 [facility] Diastolic blood 2020-04-23 61 mm[Hg] University o f pressure 01:00:00 [facility] Heart rate 2020-04-23 76 /min University of 01:00:00 [facility] Respiratory rate 2020-04-23 11 /min [facility] 01:00:00 [facility] Oxygen saturation 2020-04-23 99 /min [facility] in Arterial blood 01:00:00 [facility] by Pulse oximetry [place] Body temperature 2020-04-22 36.72 Melody [facility] 22:41:00 [facility] Body weight 2020-04-22 52.164 kg [facility] 22:41:00 [facility] Procedures Procedure Date / Time Performing Clinician Source Performed POCT TEST 2023-03-13 21:17:00 Sulma Shaffer [facility] URINALYSIS 2023-03-13 21:15:00 Sulma Shaffer [facility] ASSIGNMENT OF BENEFITS 2023-03-13 20:24:50 Doctor Unassigned, No [facility] XR FOOT <3 VW RIGHT 2023-03-13 20:04:33 Sulma Shaffer [facility] CONSENT/REFUSAL FOR 2023-03-13 18:52:15 Doctor Unassigned, No [facility] DIAGNOSIS AND TREATMENT [facility] CONSENT FOR 2021-02-07 05:01:00 Doctor Unassigned, No [facility] CONTRACEPTION [facility] POCT TEST 2021-02-07 00:00:00 Diana Doss [facility] GC & CHLAMYDIA AMPLIFIED 2020-12-06 15:11:00 FishDillon [facility] TRICHOMONAS AMPLIFIED 2020-12-06 15:11:00 Dillon Fuller [facility] ASSIGNMENT OF BENEFITS 2020-12-06 14:42:15 Doctor Unassigned, No [facility] POCT TEST 2020-12-06 00:00:00 Dillon Fuller [facility] URINALYSIS 2020-08-07 12:12:00 Chanel Mcdonald [place] o f [facility] POCT TEST 2020-08-07 12:12:00 Chanel Mcdonald [facility] ADC / LCC - DRUG SCREEN 2020-08-07 12:12:00 Chanel Mcdonald [facility] LACTIC ACID WHOLE BLOOD 2020-08-07 12:09:00 [facility] MAGNESIUM 2020-08-07 12:08:00 [facility] PANEL 2020-08-07 12:08:00 Eh Chanel [facility] ([id number]) (ALB,T.PRO,BILI [facility] T,BU/BC,ALT,AST,ALK PHOS) BASIC METABOLIC PANEL 2020-08-07 12:08:00 [facility] (NA, K, CL, CO2, [facility] GLUCOSE, BUN, CREATININE, CA) CBC WITH DIFF 2020-08-07 12:08:00 [facility] POCT GLUCOSE (AUTOMATED) 2020-08-07 12:06:00 [facility] URINALYSIS 2020-04-23 00:23:00 [facility] ADC / LCC - DRUG SCREEN 2020-04-22 22:56:00 [facility] COMP. METABOLIC PANEL 2020-04-22 22:53:00 [facility] ([id number]) [facility] SALICYLATE 2020-04-22 22:53:00 [facility] ETHANOL 2020-04-22 22:53:00 [facility] Encounters Start End Encounter Admission Attending Care Care Encounter Source Date/Time Date/Time Type Type Clinicians Facility Department ID 2023-03-13 2023-03-13 Emergency X [facility] ERT [id number] Univers 14:06:00 18:03:00 SULMA holt [facility] 2023-03-13 2023-03-13 Emergency [facility] [id number] Univers 14:06:00 18:03:00 Sulma FABIAN [id number] i ty [facility] 4.2.7.2.686 [facility] [id number] [facility] 084 Branch 2021-02-16 2021-02-16 Outpatient DILLON LOMAS [facility] [id number] Univers 15:00:00 15:00:00 ity of [facility] 2021-02-07 2021-02-07 Office Diana Doss [facility] 1.2.840. [id number] Univers 14:50:27 15:20:27 Visit Dillon Fuller [id number] ity of Women's 4.2.7.2.686 [facility] [facility] [id number] [address] 2021-02-07 2021-02-07 Outpatient R DILLON FULLER [facility] [id number] Univers 15:00:00 15:00:00 ity of [facility] 2021-02-07 2021-02-07 Orders Doctor MEGAN [id number] Univers 00:00:00 00:00:00 Only Unassigned, ZAYRA [id number] ity of [place] [facility] 4.2.7.2.686 Alvaro as [id number] [address] 2021-01-09 2021-01-09 Telephone Dillon Fuller [facility] [id number] Univers 00:00:00 00:00:00 [place] [id number] it y of Pediatric 4.2.7.2.686 [facility] [id number] [address] 2020-12-06 2020-12-06 Office Dillon Fuller [facility] 1.2.840.114 [id number] Univers 09:43:25 13:05:32 Visit [place] [id number] it y of Women's 4.2.7.2.686 [facility] [id number] [address] 2020-12-06 2020-12-06 Outpatient R DILLON FULLER [facility] [id number] Univers 10:00:00 10:00:00 ity of [facility] 2020-12-06 2020-12-06 Orders Doctor MEGAN [id number] Univers 00:00:00 00:00:00 Only Unassigned, ZAYRA [id number] ity of [place] [facility] 4.2.7.2.686 Alvaro as [id number] [facility] 009 [place] 2020-12-06 2020-12-06 Orders Doctor MEGAN [id number] 00:00:00 00:00:00 Only Unassigned, ZAYRA [id number] [place] [facility] 4.2.7.2.686 [id number] 2020-08-07 2020-08-07 [facility] [id number] Univers 07:07:00 08:22:00 Chanel Sal[place]oton [id number] i ty of [place] 4.2.7.2.686 [facility] [id number] [address] 2020-08-07 2020-08-07 [facility] [id number] 07:07:00 08:22:00 Chanel Rui [id number] [place] 4.2.7.2.686 [place] [id number] [facility] 2020-08-07 2020-08-07 Emergency [facility] ERT [id number] Univers 07:07:00 07:07:00 CHANEL rafael [facility] 2020-04-22 2020-04-22 [facility] [id number] Univers 16:38:00 19:41:00 Candido Fabian [id number] i ty of [place] 4.2.7.2.686 [facility] [id number] [address] 2020-04-22 2020-04-22 [facility] [id number] 16:38:00 19:41:00 Candido Rui [id number] [place] 4.2.7.2.686 [place] [id number] [facility] 2020-04-22 2020-04-22 Emergency X [facility] ERT [id number] Univers 16:38:00 16:38:00 CANDIDO holt [facility] Results Test Description Test Time Test Comments Results Result Comments Source POCT TEST 2023-03-13 21:17:00 Test Item Value Reference Range Interpretation Comme nts POCT PREG (test code = 1605) Negative On board controls acceptable with C Line (test code = 3574) Yes POCT PREG LOT # (test code = 3575) [id number] POCT PREG TEST DATE (test code = 3576) 05/22/2024 Lab Interpretation (test code = 29003-1) Normal [facility] [id number] 20:14:00 Test Item Value Reference Range Interpretation Comments POCT PREG (test code = 1605) Negative On board controls acceptable with C Yes Line (test code = 3574) POCT PREG LOT # (test code = 3575) POCT PREG TEST DATE (test code = 3576) [facility] [id number] 20:14:00 Test Item Value Reference Range Interpretation Comments POCT PREG (test code = 1605) Negative On board controls acceptable with C Yes Line (test code = 3574) POCT PREG LOT # (test code = 3575) POCT PREG TEST DATE (test code = 3576) [facility] [id number] 20:14:00 Test Item Value Reference Range Interpretation Comments POCT PREG (test code = 1605) Negative On board controls acceptable with C Yes Line (test code = 3574) POCT PREG LOT # (test code = 3575) POCT PREG TEST DATE (test code = 3576) [facility] & CHLAMYDIA AMPLIFIED [id number] 19:35:20 Test Item Value Reference Range Interpretation Comments C. trachomatis Nucleic Negative Negative Acid (test code = 52664-4) N. gonorrhoeae Nucleic Negative Negative Acid (test code = 26045-2) SREE (test code = SREE) Reliable results [...] NAAT. Lab Interpretation Normal (test code = 73199-8) [facility] Center[facility]ICH[facility]ONAS AMPLIFIED [id number] 19:25:22 Test Item Value Reference Range Interpretation Comments Trichomonas Nucleic Positive Negative A Acid (test code = 01375-6) SREE (test code = SREE) Reliable results [...] clinician. Lab Interpretation Abnormal (test code = 05769-3) [facility] [id number] 15:13:00 Test Item Value Reference Range Interpretation Comments POCT PREG (test code = 1605) Negative On board controls acceptable with C Yes Line (test code = 3574) POCT PREG LOT # (test code = 3575) POCT PREG TEST DATE (test code = 3576) [facility] - [facility] [id number] 13:11:01 Test Item Value Reference Range Interpretation Comments BENZO U (test code = Negative Negative 2840046023) JAGJIT U (test code = Negative Negative 3925278215) AMPHET (test code = Presumptive Positive Negative A 4051270024) THC (test code = Negative Negative 0864490874) METHADONE (test code = Negative Negative 4649677194) Meth U (test code = Presumptive Positive Negative A 6547351905) OPIATES (test code = Negative Negative 8917518989) Cocaine Metabolite (test Negative Negative code = 6264512092) PROPOXY (test code = Negative Negative 4423120284) Tric U (test code = Negative Negative 8921024221) PCP (test code = Negative Negative 8119200443) OXYCOD (test code = Negative Negative 7277966333) SREE (test code = SREE) Urine Drug [...] testing). Lab Interpretation (test Abnormal code = 68109-7) [facility] (ALB, T.PRO, BILI T, BU/BC, ALT, AST, ALK PHOS)2020-08-07 12:49:21 Test Item Value Reference Range Interpretation Comments TOTAL BILI (test code = 3860348365) 0.4 mg/dL 0.1-1.1 BILI UNCON (test code = 1048352368) 0.3 mg/dL 0.1-1.1 BILI CONJ (test code = 1179401823) 0.0 mg/dL 0.0-0.3 T PROTEIN (test code = 0491060949) 7.9 g/dL 6.3-8.2 ALBUMIN (test code = 4609538452) 4.7 g/dL 3.5-5.0 ALK PHOS (test code = 4559914438) 80 U/L 34-122 ALTv (test code = 1742-6) 10 U/L 5-35 AST(SGOT) (test code = 2717482281) 21 U/L 13-40 Lab Interpretation (test code = Normal 82468-8) [facility]2021-03-21 12:49:21 Test Item Value Reference Range Interpretation Comments MAGNESIUM (test code = 1282231951) 1.8 mg/dL 1.7-2.4 Lab Interpretation (test code = Normal 59066-0) [facility] Metabolic Panel (NA, K, CL, CO2, GLUCOSE, BUN, CREATININE, CA)2020-08-07 12:49:00 Test Item Value Reference Range Interpretation Comments NA (test code = 142 mmol/L 135-145 1440312723) K (test code = 3.6 mmol/L 3.5-5.0 3411565093) CL (test code = 106 mmol/L 98-108 5641307985) CO2 TOTAL (test code = 25 mmol/L 23-31 6040013406) AGAP (test code = 2-16 7470401673) BUN (test code = 10 mg/dL 7-23 5315391380) GLUCOSE (test code = 99 mg/dL 70-110 6780523249) CREATININE (test code 0.76 mg/dL 0.50-1.04 = 7226703723) CALCIUM (test code = 8.9 mg/dL 8.6-10.6 0303569822) eGFR Calculation mL/min/1.73m2 (Non-) (test code = 5363806691) eGFR Calculation mL/min/1.73m2 () (test code = 5414693885) SREE (test code = SREE) Association of [...] or urine or abnormalities in imaging tests). [facility] Center[facility]ysis2021-03-21 12:43:34 Test Item Value Reference Range Interpretation Comments APPEARANCE (test code = Hazy Clear A 4349059959) COLOR (test code = Yellow Yellow 6540025791) PH (test code = 4.8-8.0 7599974851) SP GRAVITY (test code = 1.003-1.030 2156375245) GLU U QUAL (test code = Normal Normal 2518481712) BLOOD (test code = Negative Negative 0245130397) KETONES (test code = Negative Negative 1141670733) PROTEIN (test code = 30 mg/dL Negative A 2887-8) UROBILIN (test code = 4.0 mg/dL Normal A [id number]) BILIRUBIN (test code = Negative Negative 7187352211) NITRITE (test code = Negative Negative 6607335591) LEUK AMI (test code = 500/uL Negative A 2903869293) RBC/HPF (test code = See_Comment H [Autom ated message] 1626824673) The system naaptol generated this result transmit violet reference range : 0 - 3 HPF. The refe rence range was not u sed to interpret th is result as normal/abnormal . WBC/HPF (test code = See_Comment H [Autom ated message] 1463652916) The system naaptol generated this result transmit violet reference range : 0 - 5 HPF. The refe rence range was not u sed to interpret th is result as normal/abnormal . BACTERIA (test code = Few Negative A 6204283695) MUCOUS (test code = Moderate Negative LPF A 5546629272) SQ EPITH (test code = HPF 1877441071) HYAL CAST (test code = See_Comment [Aut omated message] 9865631816) The system whic h generated this result transmit violet reference range : <=2 LPF. The refere nce range was not u sed to interpret th is result as normal/abnormal . Lab Interpretation (test Abnormal code = 34995-6) [facility] with [id number] 12:36:58 Test Item Value Reference Range Interpretation [...] RDW-SD (test code = 44.4 fL 39.0-49.9 81859-6) RDW-CV (test code = 12.9 % 12.0-15.5 788-0) PLT (test code = See_Comment [Automated 777-3) message] The sy stem which generated this result transmitted reference range : 166 - 358 10*3/ ?L. The reference r kailyn was not used to interpret this result as normal/abnormal . MPV (test code = 9.9 fL 9.5-12.9 96646-6) NRBC/100 WBC (test See_Comment [Automat ed code = 5473687759) message] The system which generated this result transmitted reference range : 0.0 - 10.0 /100 WBCs. The refer ence range was not u sed to interpret th is result as normal/abnormal . NRBC x10^3 (test code <0.01 See_Comment [Auto mated = 7548003564) message] The s ystem which generated this result transmitted reference range : 10*3/?L. The reference range was not used to interpret this result as normal/abnormal . GRAN MAT (NEUT) % 48.9 % (test code = 770-8) IMM GRAN % (test code 0.40 % = 9699594809) LYMPH % (test code = 39.1 % 736-9) MONO % (test code = 8.4 % 5905-5) EOS % (test code = 2.4 % 713-8) BASO % (test code = 0.8 % 706-2) GRAN MAT x10^3(ANC) 4.66 10*3/uL 1.88-7.09 (test code = 4834965124) IMM GRAN x10^3 (test 0.04 10*3/uL 0.00-0.06 code = 9218068760) LYMPH x10^3 (test code 3.73 10*3/uL 1.32-3.29 H = 731-0) MONO x10^3 (test code 0.80 10*3/uL 0.33-0.92 = 742-7) EOS x10^3 (test code = 0.23 10*3/uL 0.03-0.39 711-2) BASO x10^3 (test code 0.08 10*3/uL 0.01-0.07 H = 704-7) Lab Interpretation Abnormal (test code = 05957-3) [facility] [id number] 12:16:25 Test Item Value Reference Range Interpretation Comments LACTIC ACID (test code = 2.19 mmol/L 0.50-2.20 1441063868) Lab Interpretation (test code = Normal 31738-7) [facility] [id number] 12:12:00 Test Item Value Reference Range Interpretation Comments POCT PREG (test code = 1605) negative On board controls acceptable with present C Line (test code = 3574) POCT PREG LOT # (test code = 3575) [id number] POCT PREG TEST DATE (test 2022-02-16 code = 3576) Lab Interpretation (test code = Normal 46600-8) [facility]2020-08-07 12:09:13 Test Item Value Reference Range Interpretation Comments POCT GLU (test code = 1987088605) 95 mg/dL 70-110 Lab Interpretation (test code = Normal 64215-8) [facility] 00:56:00 Test Item Value Reference Range Interpretation Comments APPEARANCE (test code = Clear Clear 9971552286) COLOR (test code = Yellow Yellow 6548397487) PH (test code = 4.8-8.0 9169971524) SP GRAVITY (test code = <=1.005 1.003-1.030 7166812254) GLU U QUAL (test code = Negative Negative 7974824870) BLOOD (test code = Negative Negative 5301313735) KETONES (test code = Negative Negative 9096136553) PROTEIN (test code = Negative Negative 2887-8) UROBILIN (test code = 1.0 mg/dL See_Comment [Auto mated message] 5938510750) The system naaptol generated this result transmit violet reference range : 0-1.0 mg/dL. Th e reference range was not used to interpret this result as normal/abnormal . BILIRUBIN (test code = Negative Negative 8388700923) NITRITE (test code = Negative Negative 3566149793) LEUK AMI (test code = Negative Negative 8637726516) RBC/HPF (test code = <1 See_Comment [Autom ated message] 1398069358) The system naaptol generated this result transmit violet reference range : 0 - 3 HPF. The refe rence range was not u sed to interpret th is result as normal/abnormal . WBC/HPF (test code = <1 See_Comment [Autom ated message] 0867282585) The system naaptol generated this result transmit violet reference range : 0 - 5 HPF. The refe rence range was not u sed to interpret th is result as normal/abnormal . BACTERIA (test code = Negative Negative 6415647914) Lab Interpretation (test Normal code = 71423-4) [facility] 00:16:00 Test Item Value Reference Range Interpretation Comments SALICYLATE (test code <10 mg/L = 5796773799) SREE (test code = SREE) Therapeutic Range: ? Analgesic and Antipyretic Use ? 20-100 mg/L ? ? Anti-Inflammatory Use ? 100-250 mg/L Toxic Range: ? Greater than 300 mg/L [facility]ET[facility]IN[facility]EN2020-12-05 00:15:00 Test Item Value Reference Range Interpretation Comments ACETAMINOP (test code = <10.0 10-30 L 5904049310) SREE (test code = SREE) Toxic: Greater than 200 ug/mL @ 4 hour post ingestion or greater than 50 ug/mL @ 12 hour post ingestion Lab Interpretation (test Abnormal code = 37211-0) [facility]ETH[facility]2020-12-05 00:15:00 Test Item Value Reference Range Interpretation Comments ALCOHOL (test code = <10 mg/dL 1764813444) SREE (test code = SREE) <10 Cufeoboo28-838 Toxic>100 Depression of EXTENSION SERVICE SPECIALIST IN CHARGE>400 Fatalities Reported [facility]. METABOLIC PANEL (41875)2020-04-23 00:09:00 Test Item Value Reference Range Interpretation Comments NA (test code = 138 mmol/L 135-145 7581839546) K (test code = 3.9 mmol/L 3.5-5 9268803978) CL (test code = 101 mmol/L 98-108 8730781875) CO2 TOTAL (test code = 29 mmol/L 23-31 8398647019) AGAP (test code = 2-16 1537932175) BUN (test code = 11 mg/dL 7-23 8217391614) GLUCOSE (test code = 110 mg/dL 70-110 3852419998) CREATININE (test code 0.69 mg/dL 0.5-1.04 = 5973894015) TOTAL BILI (test code 0.7 mg/dL 0.1-1.1 = 0217855685) CALCIUM (test code = 10.1 mg/dL 8.6-10.6 9842384288) T PROTEIN (test code = 8.0 g/dL 6.3-8.2 8233163460) ALBUMIN (test code = 4.7 g/dL 3.5-5 9451205554) ALK PHOS (test code = 88 U/L 34-122 3404316747) ALTv (test code = 11 U/L 5-35 1742-6) AST(SGOT) (test code = 23 U/L 13-40 9474526424) eGFR Calculation mL/min/1.73m2 (Non-) (test code = 1423237485) eGFR Calculation mL/min/1.73m2 () (test code = 0289288091) SREE (test code = SREE) Association of [...] or urine or abnormalities in imaging tests). [facility] / [facility] - DRUG SCREEN [id number] 23:25:00 Test Item Value Reference Range Interpretation Comments BENZO U (test code = Negative Negative 8844887690) JAGJIT U (test code = Negative Negative 7813817051) AMPHET (test code = Negative Negative 5855337249) THC (test code = Negative Negative 5387541567) METHADONE (test code = Negative Negative 5550481102) Meth U (test code = Negative Negative 6123812556) OPIATES (test code = Negative Negative 0584113037) Cocaine Metabolite (test Negative Negative code = 5490337777) PROPOXY (test code = Negative Negative 7487501325) Tric U (test code = Negative Negative 3187357779) PCP (test code = Negative Negative 6171303781) OXYCOD (test code = Negative Negative 5742398063) SREE (test code = SREE) Urine Drug [...] testing). Lab Interpretation (test Normal code = 94025-9) [facility]"
--- NOTE | 2023-03-14 11:05 | ER ---
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 Also reports sharp pain in inspiration. 10:30 Chief complaint: Patient states: Sudden onset of body tingling and feeling anxious at kb3 0400. Reports symptoms have resolved, pt has linger burning across her chest. Coronavirus screen: Vaccine status: Patient reports being unvaccinated. Client denies travel out of the [place] in the last 14 days. Ebola Screen: Patient negative for fever greater than or equal to 101.5 degrees Fahrenheit, and additional compatible Ebola Virus Disease symptoms Patient denies exposure to infectious person. Patient denies travel to an Ebola-affected area in the 21 days before illness onset. Initial Sepsis Screen: Does the patient meet any 2 criteria? No. Patient's initial sepsis screen is negative. Does the patient have a suspected source of infection? No. Patient's initial sepsis screen is negative. Risk Assessment: Do you want to hurt yourself or someone else? Patient reports no desire to harm self or others. Onset of symptoms was March 14, 2023 at 04:00. 10:30 Method Of Arrival: EMS: [facility] 3 10:30 Acuity: ALFREDA 4 kb3 Triage Assessment: 10:30 General: Appears in no apparent distress. unkempt, Behavior is calm, cooperative. Pain: kb3 Complains of pain in chest Pain does not radiate. Pain currently is 2 out of 10 on a pain scale. Quality of pain is described as burning. 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 - Social history:: Smoking status: Patient denies any tobacco usage or history of. Patient/guardian denies using alcohol, street drugs, but used to use street drugs. Screenin:34 [facility] ED Fall Risk Assessment (Adult) History of falling in the last 3 months, kb3 including since admission No falls in past 3 months (0 pts) Confusion or Disorientation No (0 pts) Intoxicated or Sedated No (0 pts) Impaired Gait No (0 pts) Mobility Assist Device Used No (0 pt) Altered Elimination No (0 pt) Score/Fall Risk Level 0 - 2 = Low Risk Oriented to surroundings. Abuse screen: Denies threats or abuse. Denies injuries from another. Nutritional screening: No deficits noted. Tuberculosis screening: No symptoms or risk factors identified. Assessment: 10:34 General: Appears in no apparent distress. Behavior is calm, cooperative. kb3 Cardiovascular: Rhythm is regular. Respiratory: Breath sounds are clear. GI: Patient currently denies abdominal pain, nausea, vomiting. 11:22 Reassessment: No changes from previously documented assessment. Patient and/or family ll1 updated on plan of care and expected duration. Pain level reassessed. Patient is alert, oriented x 3, equal unlabored respirations, skin warm/dry/pink. Vital Signs: 10:30 BP 141 / 93; Pulse 60; Resp 18; Temp 98.2; Pulse Ox 100% ; Weight 67.13 kg; Height 5 kb3 ft. 2 in. ; Pain 2/10; 10:30 Body Mass Index 27.07 (67.13 kg, 157.48 cm) kb3 10:30 Pain Scale: Adult kb3 ED Course: 09:26 Patient arrived in ED. rg4 09:32 Sierra Armando [facility]-C [facility] snw 09:32 Morena Balbuena MD is Attending Physician. snw 10:25 Arm band placed on Patient placed in an exam room, on a stretcher. ll1 10:32 Triage completed. kb3 10:34 Patient has correct armband on for positive identification. Bed in low position. Call kb3 light in reach. Provided Education on: Plan of care. 10:34 No provider procedures requiring assistance completed. Patient did not have IV access kb3 during this emergency room visit. Administered Medications: 11:22 Drug: Propranolol PO 20 mg PO once Route: PO; ll1 11:22 Follow up: Response: No adverse reaction ll1 Medication: 10:34 VIS not applicable for this client. kb3 Outcome: 11:05 Discharge ordered by . brina 11: Discharged to home ambulatory, ll1 11: Condition: stable : Discharge instructions given to patient, Instructed on discharge instructions, follow up and referral plans. medication usage, Demonstrated understanding of instructions, follow-up care, medications, Prescriptions given X 1, : Patient left the ED. ll1 Signatures: Sierra Armando, LAST SAWYER-C LAST SAWYER-Csnw Lisa Merritt rg4 Jenn Banegas RN RN jl7 Abner Melo, MARGARITA RN ll1 Ryann Marie RN RN kb3
--- NOTE | 2023-03-14 11:05 | EDPHYS ---
Physician Documentation [facility] Name: Pedro Luis Ruano Age: 22 yrs Sex: Female : 2000 Arrival Date: 03/14/2023 Time: 09:22 Bed 10 Private MD: ED Physician Morena Balbuena HPI: 03/14 11:18 This 22 yrs old Black Female presents to ER via EMS with complaints of Anxiety. snw 11:18 Onset: The symptoms/episode began/occurred acutely. Associated signs and symptoms: snw Pertinent positives: Pt states she was alone, without transportation and began to panic b/c "I didn't want anything to be wrong". Pt said I know I was having a panic attack.. 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 - Social history:: Smoking status: Patient denies any tobacco usage or history of. Patient/guardian denies using alcohol, street drugs, but used to use street drugs. ROS: 11:18 Constitutional: Negative for fever, chills, and weight loss, Eyes: Negative for injury, snw pain, redness, and discharge, ENT: Negative for injury, pain, and discharge, Neck: Negative for injury, pain, and swelling, Respiratory: Negative for shortness of breath, cough, wheezing, and pleuritic chest pain, Abdomen/GI: Negative for abdominal pain, nausea, vomiting, diarrhea, and constipation, 11:18 Back: Negative for injury and pain, : Negative for injury, bleeding, discharge, and swelling, MS/Extremity: Negative for injury and deformity, Skin: Negative for injury, rash, and discoloration, Neuro: Negative for headache, weakness, numbness, tingling, and seizure, 11:18 Cardiovascular: Positive for chest pain, palpitations, 11:18 Psych: Positive for anxiety, panic attack, Exam: 11:16 Head/Face: Normocephalic, atraumatic. Eyes: Pupils equal round and reactive to light, snw extra-ocular motions intact. Lids and lashes normal. Conjunctiva and sclera are non-icteric and not injected. Cornea within normal limits. Periorbital areas with no swelling, redness, or edema. ENT: Nares patent. No nasal discharge, no septal abnormalities noted. Tympanic membranes are normal and external auditory canals are clear. Oropharynx with no redness, swelling, or masses, exudates, or evidence of obstruction, uvula midline. Mucous membranes moist. Neck: Trachea midline, no thyromegaly or masses palpated, and no cervical lymphadenopathy. Supple, full range of motion without nuchal rigidity, or vertebral point tenderness. No Meningismus. Chest/axilla: Normal chest wall appearance and motion. Nontender with no deformity. No lesions are appreciated. Cardiovascular: Regular rate and rhythm with a normal S1 and S2. No gallops, murmurs, or rubs. Normal PMI, no JVD. No pulse deficits. Respiratory: Lungs have equal breath sounds bilaterally, clear to auscultation and percussion. No rales, rhonchi or wheezes noted. No increased work of breathing, no retractions or nasal flaring. Abdomen/GI: Soft, non-tender, with normal bowel sounds. No distension or tympany. No guarding or rebound. No evidence of tenderness throughout. Back: No spinal tenderness. No costovertebral tenderness. Full range of motion. Skin: Warm, dry with normal turgor. Normal color with no rashes, no lesions, and no evidence of cellulitis. MS/ Extremity: Pulses equal, no cyanosis. Neurovascular intact. Full, normal range of motion. Neuro: Awake and alert, GCS 15, oriented to person, place, time, and situation. Cranial nerves II-XII grossly intact. Motor strength 5/5 in all extremities. Sensory grossly intact. Cerebellar exam normal. Normal gait. Psych: Awake, alert, with orientation to person, place and time. Behavior, mood, and affect are within normal limits. 11:16 Constitutional: The patient appears alert, awake, anxious, restless, Vital Signs: 10:30 BP 141 / 93; Pulse 60; Resp 18; Temp 98.2; Pulse Ox 100% ; Weight 67.13 kg; Height 5 kb3 ft. 2 in. ; Pain 2/10; 10:30 Body Mass Index 27.07 (67.13 kg, 157.48 cm) kb3 10:30 Pain Scale: Adult kb3 MDM: 10:59 Patient medically screened. snw 11:17 Differential diagnosis: anxiety, thyroid disorder, atypical chest pain. Data reviewed: snw vital signs, nurses notes. I considered the following discharge prescriptions or medication management in the emergency department Medications were administered in the Emergency Department. See MAR. Counseling: I had a detailed discussion with the patient and/or guardian regarding the historical points, exam findings, and any diagnostic results supporting the discharge/admit diagnosis, the presence of at least one elevated blood pressure reading (>120/80) during this emergency department visit, the need for outpatient follow up, for definitive care, a family practitioner, to return to the emergency department if symptoms worsen or persist or if there are any questions or concerns that arise at home. Special discussion: Based on the history and exam findings, there is no indication for further emergent testing or inpatient evaluation. I discussed with the patient/guardian the need to see the primary care provider for further evaluation of the symptoms. Administered Medications: 11:22 Drug: Propranolol PO 20 mg PO once Route: PO; ll1 11:22 Follow up: Response: No adverse reaction ll1 Disposition Summary: 03/14/23 11:05 Discharge Ordered Notes: Location: Home snw Condition: Stable snw Diagnosis - Generalized anxiety disorder snw Followup: snw - With: Emergency Department - When: As needed - Reason: Worsening of condition Followup: snw - With: Private Physician - When: 1 week - Reason: Recheck today's complaints, Continuance of care, Re-evaluation by your physician Discharge Instructions: - Discharge Summary Sheet snw - Panic Attack snw - Generalized Anxiety Disorder, Adult snw - Managing Anxiety, Adult snw Forms: - Medication Reconciliation Form snw - Thank You Letter snw - Antibiotic Education snw - Prescription Opioid Use snw - Patient Portal Instructions snw - Leadership Thank You Letter snw Prescriptions: - Propranolol 20 mg Oral tablet - take 1 tablet ORAL route every 8 hours As needed; 90 tablet; Refills: 0, snw Product Selection Permitted Signatures: Sierra Armando FNP-C FNP-Abner Lowry, RN RN ll1 Ryann Marie RN RN kb3
[2023-03-14 16:32] VITALS: BP 141/93; TEMP 98.2; O2SAT 100
== END 2023-03-14 11:22 | disposition home or self-care (01) ==
LOC: ER 09:22
DX: F41.1 Generalized anxiety disorder (principal)
CPT/HCPCS: 99283

== ENCOUNTER 2023-04-09 15:03 | Emergency (ER) | payer SELFPAY ==
--- OUTSIDE RECORDS SUMMARY | 2023-04-09 15:07 | XMS REPORT | Continuity of Care Document ---
:2000 Author Organization [facility] t Address [address] [place] [address] [place] [id number] Care Team Providers Name Role Phone PCP, PATIENT DOES NOT HAVE A Primary Care Physician Unavaila SULMA Saldivar Attending Clinician Unavailable Sulma Do Attending Clinician DILLON PACK Attending Clinician Unavailable Diana Doss PA-C Attending Clinician Dillon Pack MD Attending Clinician Doctor Unassigned, [place] Attending Clinician Unavailable Chanel Stauffer MD Attending Clinician CHANEL STAUFFER Attending Clinician Unavailable Candido Gutierrez DO Attending Clinician CANDIDO GUTIERREZ Attending Clinician Unavailable SULMA SHAFFER Admitting Clinician Unavailable Payers Payer Name Policy Type Policy Number Effective Date Expiration Date [facility] [id number] 2018 [facility] [place] STAR 00:00:00 Problems Condition Condition Condition Status Onset Resolution Last Treating Co mments Source Name Details Category Date Date Treatment Clinician Date Irregular Irregular Disease Active Uni vers menstrual menstrual 7-20 ity of cycle cycle 00:00: [address] No known No known Disease Unive rs active active ity of problems problems [facility] Allergies, Adverse Reactions, Alerts Allergy Allergy Status Severity Reaction(s) Onset Inactive Treating Comm ents Source Name Type Date Date Clinician NO KNOWN Drug Active Univers ALLERGIE Class ity of S [facility] Social History Social Habit Start Date Stop Date Quantity Comments Source Sexual orientation Univer sity [facility] Exposure to Not sure University of SARS-CoV-2 (event) [facility] Alcohol intake 2023-03-13 2023-03-13 1.43 /d University of 00:00:00 00:00:00 [facility] Tobacco use and 2021-02-07 2021-02-07 Smokeless tobacco Un iversity of exposure 00:00:00 00:00:00 non-user [facility] History of tobacco 2021-01-31 Cigarette Smoker University of use 00:00:00 [facility] Tobacco Comment 2020-12-06 2020-12-06 smokes 5 Universit y of 00:00:00 00:00:00 cigarettes per [facility] Branch History of Social 2020-12-06 2020-12-06 Univers ity of function 00:00:00 00:00:00 [facility] Sex Assigned At 2000 2000 Universit y of 00:00:00 00:00:00 [facility] Smoking Status Start Date Stop Date Source Ex-smoker 2021-02-07 00:00:00 2021-02-07 00:00:[address] [facility] Current some day 2020-12-06 00:00:00 [facility] smoker [facility] Unknown if ever smoked [facility] Medications Ordered Filled Start Stop Current Ordering Indication Dosage Frequency Signature Comments Components Source Medication Medication Date Date Medication? Clinician (SIG) Name Name ondansetron 2022-05- No 4mg 4 mg, Univ ers (ZOFRAN-ODT 0-25 10-25 Oral, ity of ) 20:30: 21:17 ONCE, 1 [place] disintegrat 00 :00 dose, On Medi tay ing tablet [facility] Branch 4 mg 03/13/23 at 1530, PHI norelgestro Yes [id number] 1{patch Apply 1 Univers min-ethinyl 9-21 } Patch to ity of estradiol 00:00: skin [place] (XULANE) 00 weekly. Medical 150-35 Branch mcg/24 hr patch norelgestro Yes [id number] 1{patch Apply 1 Univers min-ethinyl 9-21 } Patch to ity of estradiol 00:00: skin [place] (BANNER) 00 weekly. Medical 150-35 Branch mcg/24 hr patch norelgestro 2020-0 Yes [id number] 1{patch Apply 1 Univers min-ethinyl 9-21 } Patch to ity of estradiol 00:00: [facility] (BANNER) 00 weekly. Medical 150-35 Branch mcg/24 hr patch norelgestro 2020-0 Yes [id number] 1{patch Apply 1 Univers min-ethinyl 9-21 } Patch to ity of estradiol 00:00: [facility] (BANNER) 00 weekly. Medical 150-35 Branch mcg/24 hr patch norelgestro 2020-0 Yes [id number] 1{patch Apply 1 Univers min-ethinyl 9-21 } Patch to ity of estradiol 00:00: [facility] (BANNER) 00 weekly. Medical 150-35 Branch mcg/24 hr patch metroNIDAZO 2020-0 Yes TAKE 4 Univ ers LE 500 mg 8-25 TABLETS BY ity of tablet 00:00: MOUTH ONCE [place] 00 NOW FOR 1 Medical DOSE. Branch metroNIDAZO 2020-0 Yes TAKE 4 Univ ers LE 500 mg 8-25 TABLETS BY ity of tablet 00:00: MOUTH ONCE [place] 00 NOW FOR 1 Medical DOSE. Branch metroNIDAZO 2020-0 Yes TAKE 4 Univ ers LE 500 mg 8-25 TABLETS BY ity of tablet 00:00: MOUTH ONCE [place] 00 NOW FOR 1 Medical DOSE. Branch metroNIDAZO 2020-0 Yes TAKE 4 Univ ers LE 500 mg 8-25 TABLETS BY ity of tablet 00:00: MOUTH ONCE [place] 00 NOW FOR 1 Medical DOSE. Branch metroNIDAZO 2020-0 Yes TAKE 4 Univ ers LE 500 mg 8-25 TABLETS BY ity of tablet 00:00: MOUTH ONCE [place] 00 NOW FOR 1 Medical DOSE. Branch cephALEXin 2020-0 Yes [id number] 500mg Take 1 Univers (KEFLEX) 3-21 capsule by ity o f 500 mg 00:00: mouth 3 [place] capsule 00 (three) Medical times [place] daily. cephALEXin 2020-0 Yes [id number] 500mg Take 1 Univers (KEFLEX) 3-21 capsule by ity o f 500 mg 00:00: mouth 3 [place] capsule 00 (three) Medical times [place] daily. cephALEXin 2020-0 2020- No [id number] 500mg Take 1 Univers (KEFLEX) 3-21 07-20 capsule by ity of 500 mg 00:00: 00:00 mouth 3 [place] capsule 00 :00 (three) Medical times Branch daily. proMETHazin Yes [id number] 25mg Take 1 Univers e 25 mg 7-03 tablet by ity of tablet 00:00: mouth [place] 00 every 6 Medical (six) Branch hours as needed for Nausea and Vomiting (N/V). proMETHazin Yes [id number] 25mg Take 1 Univers e 25 mg 7-03 tablet by ity of tablet 00:00: mouth [place] 00 every 6 Medical (six) Branch hours as needed for Nausea and Vomiting (N/V). proMETHazin Yes [id number] 25mg Take 1 Univers e 25 mg 7-03 tablet by ity of tablet 00:00: mouth [place] 00 every 6 Medical (six) Branch hours as needed for Nausea and Vomiting (N/V). proMETHazin 2020- No [id number] 25mg Take 1 Univers e 25 mg 7-03 07-20 tablet by ity of tablet 00:00: 00:00 mouth [place] 00 :00 every 6 Medical (six) Branch hours as needed for Nausea and Vomiting (N/V). Vital Signs Vital Name Observation Time Observation Value Comments Source Systolic blood 2023-03-13 154 mm[Hg] [facility] pressure 21:16: [facility] Diastolic blood 2023-03-13 93 mm[Hg] [place] o f pressure 21:16: [facility] Heart rate 2023-03-13 92 /min [facility] 21:16:06 [facility] Body temperature 2023-03-13 36.78 Mleody University 21:16: [facility] Respiratory rate 2023-03-13 18 /min [facility] 21:16:06 [facility] Oxygen saturation 2023-03-13 98 /min [facility] in Arterial blood 21:16: [facility] by Pulse oximetry [place] Body height 2023-03-13 157.5 cm University 19:02:00 [facility] Body weight 2023-03-13 67.223 kg [facility] 19:02:00 [facility] BMI 2023-03-13 27.11 kg/m2 University 19:02:00 [facility] Systolic blood 2021-02-07 105 mm[Hg] University of pressure 20:05:00 [facility] Diastolic blood 2021-02-07 71 mm[Hg] University o f pressure 20:05:00 [facility] Heart rate 2021-02-07 85 /min University of 20:05:00 [facility] Body temperature 2021-02-07 36.78 Melody University of 20:05:00 [facility] Respiratory rate 2021-02-07 16 /min University of 20:05:00 [facility] Body height 2021-02-07 157.5 cm University of 20:05:00 [facility] Body weight 2021-02-07 57.664 kg University of 20:05:00 [facility] BMI 2021-02-07 23.25 kg/m2 University of 20:05:00 [facility] Systolic blood 2020-12-06 124 mm[Hg] University of pressure 14:57:00 [facility] Diastolic blood 2020-12-06 71 mm[Hg] University o f pressure 14:57:00 [facility] Heart rate 2020-12-06 106 /min University of 14:57:00 [facility] Body temperature 2020-12-06 36.78 Melody University of 14:57:00 [facility] Respiratory rate 2020-12-06 18 /min University of 14:57:00 [facility] Body height 2020-12-06 154.9 cm University of 14:57:00 [facility] Body weight 2020-12-06 56.274 kg University of 14:57:00 [facility] BMI 2020-12-06 23.44 kg/m2 University of 14:57:00 [facility] Heart rate 2020-08-07 110 /min University of 12:30:00 [facility] Oxygen saturation 2020-08-07 100 /min [facility] in Arterial blood 12:30:00 [facility] by Pulse oximetry Branch BMI 2020-08-07 23.62 kg/m2 University of 12:06:00 [facility] Systolic blood 2020-08-07 141 mm[Hg] University of pressure 12:06:00 [facility] Diastolic blood 2020-08-07 84 mm[Hg] University o f pressure 12:06:00 [facility] Body temperature 2020-08-07 37.06 Melody University of 12:06:00 [facility] Respiratory rate 2020-08-07 16 /min University of 12:06:00 [facility] Body height 2020-08-07 154.9 cm University of 12:06:00 [facility] Body weight 2020-08-07 56.7 kg Simultaneous University of 12:06:00 filing. User may [place] Medic al not have seen Branch previous data. Heart rate 2020-08-07 110 /min University of 12:30:00 [facility] Oxygen saturation 2020-08-07 100 /min University of in Arterial blood 12:30:00 [place] Medi tay by Pulse oximetry Branch BMI 2020-08-07 23.62 kg/m2 University of 12:06:00 [facility] Systolic blood 2020-08-07 141 mm[Hg] University of pressure 12:06:00 [facility] Diastolic blood 2020-08-07 84 mm[Hg] University o f pressure 12:06:00 [facility] Body temperature 2020-08-07 37.06 Melody University of 12:06:00 [facility] Respiratory rate 2020-08-07 16 /min University of 12:06:00 [facility] Body height 2020-08-07 154.9 cm University of 12:06:00 [facility] Body weight 2020-08-07 56.7 kg Simultaneous University of 12:06:00 filing. User may [place] Medic al not have seen Branch previous data. Systolic blood 2020-04-23 107 mm[Hg] University of pressure 01:00:00 [facility] Diastolic blood 2020-04-23 61 mm[Hg] University o f pressure 01:00:00 [facility] Heart rate 2020-04-23 76 /min University of 01:00:00 [facility] Respiratory rate 2020-04-23 11 /min University of 01:00:00 [facility] Oxygen saturation 2020-04-23 99 /min University of in Arterial blood 01:00:00 [place] Medi tay by Pulse oximetry Branch Body temperature 2020-04-22 36.72 Melody University of 22:41:00 [facility] Body weight 2020-04-22 52.164 kg University of 22:41:00 [facility] Systolic blood 2020-04-23 107 mm[Hg] University of pressure 01:00:00 [facility] Diastolic blood 2020-04-23 61 mm[Hg] University o f pressure 01:00:00 [facility] Heart rate 2020-04-23 76 /min [facility] 01:00:00 [facility] Respiratory rate 2020-04-23 11 /min [facility] 01:00:00 [facility] Oxygen saturation 2020-04-23 99 /min [facility] in Arterial blood 01:00:00 [facility] by Pulse oximetry [place] Body temperature 2020-04-22 36.72 Melody [facility] 22:41:00 [facility] Body weight 2020-04-22 52.164 kg [facility] 22:41:00 [facility] Procedures Procedure Date / Time Performing Clinician Source Performed POCT TEST 2023-03-13 21:17:00 Sulma Shaffer [facility] URINALYSIS 2023-03-13 21:15:00 Sulma Shaffer [facility] ASSIGNMENT OF BENEFITS 2023-03-13 20:24:50 Doctor Unassigned, No [facility] XR FOOT <3 VW RIGHT 2023-03-13 20:04:33 Sulma Shaffer [facility] CONSENT/REFUSAL FOR 2023-03-13 18:52:15 Doctor Unassigned, No [facility] DIAGNOSIS AND TREATMENT [facility] CONSENT FOR 2021-02-07 05:01:00 Doctor Unassigned, No [facility] CONTRACEPTION [facility] POCT TEST 2021-02-07 00:00:00 Diana Doss [facility] GC & CHLAMYDIA AMPLIFIED 2020-12-06 15:11:[address] [facility] TRICHOMONAS AMPLIFIED 2020-12-06 15:11:00 Dillon Pack [facility] ASSIGNMENT OF BENEFITS 2020-12-06 14:42:15 Doctor Unassigned, No [facility] POCT TEST 2020-12-06 00:00:00 Dillon Pack [facility] URINALYSIS 2020-08-07 12:12:00 Chanel Stauffer [place] o f [facility] POCT TEST 2020-08-07 12:12:00 Chanel Stauffer [facility] ADC / LCC - DRUG SCREEN 2020-08-07 12:12:00 Stauffer, [facility] LACTIC ACID WHOLE BLOOD 2020-08-07 12:09:00 [facility]ly [facility] MAGNESIUM 2020-08-07 12:08:00 [facility] 2020-08-07 12:08:00 Chanel Stauffer [facility] ([id number]) (ALB,T.PRO,BILI [facility] T,BU/BC,ALT,AST,ALK PHOS) BASIC METABOLIC PANEL 2020-08-07 12:08:00 [facility] (NA, K, CL, CO2, Medical Branch GLUCOSE, BUN, CREATININE, CA) CBC WITH DIFF 2020-08-07 12:08:00 [facility] PO[facility] GLUCOSE (AUTOMATED) 2020-08-07 12:06:00 Chanel Stauffer [facility] URINALYSIS 2020-04-23 00:23:00 [facility] ADC / LCC - DRUG SCREEN 2020-04-22 22:56:00 [facility] COMP. METABOLIC PANEL 2020-04-22 22:53:00 [facility] ([id number]) [facility] SALICYLATE 2020-04-22 22:53:00 [facility] ETHANOL 2020-04-22 22:53:00 [facility] Encounters Start End Encounter Admission Attending Care Care Encounter Source Date/Time Date/Time Type Type Clinicians Facility Department ID 2023-03-13 2023-03-13 [facility] [id number] Univers 14:06:00 18:03:[address] [facility] 2023-03-13 2023-03-13 [facility] [id number] Univers 14:06:00 18:03:00 Sulma MERIDA [id number] i ty [facility] 4.2.7.2.686 [facility] [id number] [facility] 084 Branch 2021-02-16 2021-02-16 Outpatient DILLON LOMAS [facility] [id number] Univers 15:00:00 15:00:00 ity of [facility] 2021-02-07 2021-02-07 Office Diana Doss [facility] [id number]. [id number] Univers 14:50:27 15:20:27 Visit Dillon Pack [id number] ity of [facility] 4[place]2.7.2.686 [place] [facility] [id number] [address] [place] [address] 2021-02-07 2021-02-07 Outpatient R DILLON PACK [facility] [id number] Univers 15:00:00 15:00:00 ity of [facility] 2021-02-07 2021-02-07 Orders Doctor MEGAN [id number] Univers 00:00:00 00:00:00 Only Unassigned, ZAYRA [id number] ity of [place] [facility] 4.2.7.2.686 Alvaro [id number] [address] 2021-01-09 2021-01-09 Telephone Dillon Pack [facility] [id number] Univers 00:00:00 00:00:00 [place] [id number] it y of Pediatric 4.2.7.2.686 [facility] [id number] [address] 2020-12-06 2020-12-06 Office Dillon Pack [facility] [id number] Univers 09:43:25 13:05:32 Visit [place] [id number] it y of [place] 4[place]2.7.2.686 [place] [facility] [id number] [address] 2020-12-06 2020-12-06 Outpatient R DILLON PACK [facility] [id number] Univers 10:00:00 10:00:00 ity of [facility] 2020-12-06 2020-12-06 Orders Doctor GUZMAN [id number] Univers 00:00:00 00:00:00 Only Unassigned, ZAYRA [id number] ity of [place] [facility] 4.2.7.2.686 Alvaro [id number] [facility] 009 [place] 2020-12-06 2020-12-06 Orders Doctor MEGAN [id number] 00:00:00 00:00:00 Only Unassigned, ZAYRA [id number] [place] [facility] 4.2.7.2.686 [id number] 009 2020-08-07 2020-08-07 [facility] [id number] Univers 07:07:00 08:22:00 Chanel Salcedoton [id number] i ty of [place] 4.2.7.2.686 [facility] [id number] [address] 2020-08-07 2020-08-07 [facility] [id number] 07:07:00 08:22:00 Chanel Rui [id number] [place] 4.2.7.2.686 [place] [id number] [facility] 2020-08-07 2020-08-07 [facility] [id number] Univers 07:07:00 07:07:00 CHANEL [facility] 2020-04-22 2020-04-22 [facility] [id number] Univers 16:38:00 19:41:00 Candido Merida [id number] i ty of [place] 4.2.7.2.686 [facility] [id number] [address] 2020-04-22 2020-04-22 [facility] [id number] 16:38:00 19:41:00 Candido Rui [id number] [place] 4.2.7.2.686 [place] [id number] [facility] 2020-04-22 2020-04-22 Emergency X [facility] ERT [id number] Univers 16:38:00 16:38:[address] [facility] Results Test Description Test Time Test Comments Results Result Comments Source POCT TEST 2023-03-13 21:17:00 Test Item Value Reference Range Interpretation Comme nts POCT PREG (test code = 1605) Negative On board controls acceptable with C Line (test code = 3574) Yes POCT PREG LOT # (test code = 3575) [id number] POCT PREG TEST DATE (test code = 3576) 05/22/2024 Lab Interpretation (test code = 49191-0) Normal [facility] [id number] 20:14:00 Test Item Value Reference Range Interpretation Comments POCT PREG (test code = 1605) Negative On board controls acceptable with C Yes Line (test code = 3574) POCT PREG LOT # (test code = 3575) POCT PREG TEST DATE (test code = 3576) [facility] [id number] 20:14:00 Test Item Value Reference Range Interpretation Comments POCT PREG (test code = 1605) Negative On board controls acceptable with C Yes Line (test code = 3574) POCT PREG LOT # (test code = 3575) POCT PREG TEST DATE (test code = 3576) [facility] [id number] 20:14:00 Test Item Value Reference Range Interpretation Comments POCT PREG (test code = 1605) Negative On board controls acceptable with C Yes Line (test code = 3574) POCT PREG LOT # (test code = 3575) POCT PREG TEST DATE (test code = 3576) [facility] & CHLAMYDIA AMPLIFIED [id number] 19:35:20 Test Item Value Reference Range Interpretation Comments C. trachomatis Nucleic Negative Negative Acid (test code = 06417-9) N. gonorrhoeae Nucleic Negative Negative Acid (test code = 18085-2) SREE (test code = SREE) Reliable results [...] NAAT. Lab Interpretation Normal (test code = 70115-8) [facility] AMPLIFIED [id number] 19:25:22 Test Item Value Reference Range Interpretation Comments Trichomonas Nucleic Positive Negative A Acid (test code = 56012-1) SREE (test code = SREE) Reliable results [...] clinician. Lab Interpretation Abnormal (test code = 91200-3) [facility] [id number] 15:13:00 Test Item Value Reference Range Interpretation Comments POCT PREG (test code = 1605) Negative On board controls acceptable with C Yes Line (test code = 3574) POCT PREG LOT # (test code = 3575) POCT PREG TEST DATE (test code = 3576) [facility] / C - DRUG SCREEN [id number] 13:11:01 Test Item Value Reference Range Interpretation Comments BENZO U (test code = Negative Negative 8964858404) JAGJIT U (test code = Negative Negative 7165763643) AMPHET (test code = Presumptive Positive Negative A 5096522143) THC (test code = Negative Negative 0577015369) METHADONE (test code = Negative Negative 8706394371) Meth U (test code = Presumptive Positive Negative A 7935850279) OPIATES (test code = Negative Negative 5695614467) Cocaine Metabolite (test Negative Negative code = 2872865649) PROPOXY (test code = Negative Negative 0521114666) Tric U (test code = Negative Negative 0787940116) PCP (test code = Negative Negative 2401505427) OXYCOD (test code = Negative Negative 3299186959) SREE (test code = SREE) Urine Drug [...] testing). Lab Interpretation (test Abnormal code = 44404-2) [facility] (ALB, T.PRO, BILI T, BU/BC, ALT, AST, ALK PHOS)2020-08-07 12:49:21 Test Item Value Reference Range Interpretation Comments TOTAL BILI (test code = 4033944928) 0.4 mg/dL 0.1-1.1 BILI UNCON (test code = 8391456587) 0.3 mg/dL 0.1-1.1 BILI CONJ (test code = 1657035638) 0.0 mg/dL 0.0-0.3 T PROTEIN (test code = 3802517591) 7.9 g/dL 6.3-8.2 ALBUMIN (test code = 4294814462) 4.7 g/dL 3.5-5.0 ALK PHOS (test code = 0363158074) 80 U/L 34-122 ALTv (test code = 1742-6) 10 U/L 5-35 AST(SGOT) (test code = 9029937872) 21 U/L 13-40 Lab Interpretation (test code = Normal 61795-9) [facility]2021-[facility]-21 12:49:21 Test Item Value Reference Range Interpretation Comments MAGNESIUM (test code = 3681774436) 1.8 mg/dL 1.7-2.4 Lab Interpretation (test code = Normal 03745-3) [facility] Metabolic Panel (NA, K, CL, CO2, GLUCOSE, BUN, CREATININE, CA)2020-08-07 12:49:00 Test Item Value Reference Range Interpretation Comments NA (test code = 142 mmol/L 135-145 8683399564) K (test code = 3.6 mmol/L 3.5-5.0 3891379792) CL (test code = 106 mmol/L 98-108 6340356834) CO2 TOTAL (test code = 25 mmol/L 23-31 1585637755) AGAP (test code = 2-16 7489933630) BUN (test code = 10 mg/dL 7-23 6923270125) GLUCOSE (test code = 99 mg/dL 70-110 9835516727) CREATININE (test code 0.76 mg/dL 0.50-1.04 = 0937218640) CALCIUM (test code = 8.9 mg/dL 8.6-10.6 3189537353) eGFR Calculation mL/min/1.73m2 (Non-) (test code = 1232411301) eGFR Calculation mL/min/1.73m2 () (test code = 8619270627) SREE (test code = SREE) Association of [...] or urine or abnormalities in imaging tests). [facility] Dallas[facility]inalysis2021-03-21 12:43:34 Test Item Value Reference Range Interpretation Comments APPEARANCE (test code = Hazy Clear A 5863729527) COLOR (test code = Yellow Yellow 1663784358) PH (test code = 4.8-8.0 7147487862) SP GRAVITY (test code = 1.003-1.030 0391044398) GLU U QUAL (test code = Normal Normal 4109857923) BLOOD (test code = Negative Negative 4040402106) KETONES (test code = Negative Negative 2114108010) PROTEIN (test code = 30 mg/dL Negative A 2887-8) UROBILIN (test code = 4.0 mg/dL Normal A 8422957866) BILIRUBIN (test code = Negative Negative 8957591503) NITRITE (test code = Negative Negative 7744504191) LEUK AMI (test code = 500/uL Negative A 9347072719) RBC/HPF (test code = See_Comment H [Autom ated message] 2723318215) The system [employer] generated this result transmit violet reference range : 0 - 3 HPF. The refe rence range was not u sed to interpret th is result as normal/abnormal . WBC/HPF (test code = See_Comment H [Autom ated message] 6701415488) The system [employer] generated this result transmit violet reference range : 0 - 5 HPF. The refe rence range was not u sed to interpret th is result as normal/abnormal . BACTERIA (test code = Few Negative A 1482851889) MUCOUS (test code = Moderate Negative LPF A 6596619796) SQ EPITH (test code = HPF 7205878892) HYAL CAST (test code = See_Comment [Aut omated message] [id number]) The system whic h generated this result transmit violet reference range : <=2 LPF. The refere nce range was not u sed to interpret th is result as normal/abnormal . Lab Interpretation (test Abnormal code = 84075-2) [facility] with [id number] 12:36:58 Test Item Value Reference Range Interpretation Comments WBC (test code = See_Comment [Automated 7790-2) message] The sy stem which generated this result transmitted reference range : 4.30 - 11.10 10*3/?L. The reference range was not used to interpret this result as normal/abnormal . RBC (test code = See_Comment [Automated 439-8) message] The sy stem which generated this [...] RDW-SD (test code = 44.4 fL 39.0-49.9 12646-4) RDW-CV (test code = 12.9 % 12.0-15.5 788-0) PLT (test code = See_Comment [Automated 777-3) message] The sy stem which generated this result transmitted reference range : 166 - 358 10*3/ ?L. The reference r kailyn was not used to interpret this result as normal/abnormal . MPV (test code = 9.9 fL 9.5-12.9 76531-7) NRBC/100 WBC (test See_Comment [Automat ed code = 6519133755) message] The system which generated this result transmitted reference range : 0.0 - 10.0 /100 WBCs. The refer ence range was not u sed to interpret th is result as normal/abnormal . NRBC x10^3 (test code <0.01 See_Comment [Auto mated = 4560535588) message] The s ystem which generated this result transmitted reference range : 10*3/?L. The reference range was not used to interpret this result as normal/abnormal . GRAN MAT (NEUT) % 48.9 % (test code = 770-8) IMM GRAN % (test code 0.40 % = 9331081575) LYMPH % (test code = 39.1 % 736-9) MONO % (test code = 8.4 % 5905-5) EOS % (test code = 2.4 % 713-8) BASO % (test code = 0.8 % 706-2) GRAN MAT x10^3(ANC) 4.66 10*3/uL 1.88-7.09 (test code = 9524594597) IMM GRAN x10^3 (test 0.04 10*3/uL 0.00-0.06 code = 4154566414) LYMPH x10^3 (test code 3.73 10*3/uL 1.32-3.29 H = 731-0) MONO x10^3 (test code 0.80 10*3/uL 0.33-0.92 = 742-7) EOS x10^3 (test code = 0.23 10*3/uL 0.03-0.39 711-2) BASO x10^3 (test code 0.08 10*3/uL 0.01-0.07 H = 704-7) Lab Interpretation Abnormal (test code = 18116-8) [facility] [id number] 12:16:25 Test Item Value Reference Range Interpretation Comments LACTIC ACID (test code = 2.19 mmol/L 0.50-2.20 0684200925) Lab Interpretation (test code = Normal 59189-8) [facility]PO[facility] [id number] 12:12:00 Test Item Value Reference Range Interpretation Comments POCT PREG (test code = 1605) negative On board controls acceptable with present C Line (test code = 3574) POCT PREG LOT # (test code = 3575) [id number] POCT PREG TEST DATE (test 2022-02-16 code = 3576) Lab Interpretation (test code = Normal 72025-0) [facility] (AUTOMATED)2020-08-07 12:09:13 Test Item Value Reference Range Interpretation Comments POCT GLU (test code = 5826652048) 95 mg/dL 70-110 Lab Interpretation (test code = Normal 14333-9) [facility]2020-12-05 00:56:00 Test Item Value Reference Range Interpretation Comments APPEARANCE (test code = Clear Clear 5203932296) COLOR (test code = Yellow Yellow 5818910108) PH (test code = 4.8-8.0 2076174992) SP GRAVITY (test code = <=1.005 1.003-1.030 6622173785) GLU U QUAL (test code = Negative Negative 7822231030) BLOOD (test code = Negative Negative 2271666946) KETONES (test code = Negative Negative 8579963306) PROTEIN (test code = Negative Negative 2887-8) UROBILIN (test code = 1.0 mg/dL See_Comment [Auto mated message] 7628205981) The system [employer] generated this result transmit violet reference range : 0-1.0 mg/dL. Th e reference range was not used to interpret this result as normal/abnormal . BILIRUBIN (test code = Negative Negative 4983741354) NITRITE (test code = Negative Negative 5577505994) LEUK AMI (test code = Negative Negative 0246944561) RBC/HPF (test code = <1 See_Comment [Autom ated message] 4868988642) The system [employer] generated this result transmit violet reference range : 0 - 3 HPF. The refe rence range was not u sed to interpret th is result as normal/abnormal . WBC/HPF (test code = <1 See_Comment [Autom ated message] 3067259444) The system [employer] generated this result transmit violet reference range : 0 - 5 HPF. The refe rence range was not u sed to interpret th is result as normal/abnormal . BACTERIA (test code = Negative Negative 1009875623) Lab Interpretation (test Normal code = 21940-2) [facility]2020-12-05 00:16:00 Test Item Value Reference Range Interpretation Comments SALICYLATE (test code <10 mg/L = 6441872692) SREE (test code = SREE) Therapeutic Range: ? Analgesic and Antipyretic Use ? 20-100 mg/L ? ? Anti-Inflammatory Use ? 100-250 mg/L Toxic Range: ? Greater than 300 mg/L [facility]ACETAMINOPHEN2020-12-05 00:15:00 Test Item Value Reference Range Interpretation Comments ACETAMINOP (test code = <10.0 10-30 L 2382195710) SREE (test code = SREE) Toxic: Greater than 200 ug/mL @ 4 hour post ingestion or greater than 50 ug/mL @ 12 hour post ingestion Lab Interpretation (test Abnormal code = 83392-6) [facility]ETH[facility]OL2020-12-05 00:15:00 Test Item Value Reference Range Interpretation Comments ALCOHOL (test code = <10 mg/dL 6262552573) SREE (test code = SREE) <10 Ykyrrjwy66-823 Toxic>100 Depression of MAJOR ACCOUNT REPRESENTATIVE>400 Fatalities Reported [facility] DallasCOM. METABOLIC PANEL (86039)2020-04-23 00:09:00 Test Item Value Reference Range Interpretation Comments NA (test code = 138 mmol/L 135-145 9607834226) K (test code = 3.9 mmol/L 3.5-5 6582584801) CL (test code = 101 mmol/L 98-108 0671199996) CO2 TOTAL (test code = 29 mmol/L 23-31 9650188569) AGAP (test code = 2-16 1543428042) BUN (test code = 11 mg/dL 7-23 4447455092) GLUCOSE (test code = 110 mg/dL 70-110 1231214992) CREATININE (test code 0.69 mg/dL 0.5-1.04 = 6795191045) TOTAL BILI (test code 0.7 mg/dL 0.1-1.1 = 8466527389) CALCIUM (test code = 10.1 mg/dL 8.6-10.6 1464582127) T PROTEIN (test code = 8.0 g/dL 6.3-8.2 4903798905) ALBUMIN (test code = 4.7 g/dL 3.5-5 8633902825) ALK PHOS (test code = 88 U/L 34-122 5461720861) ALTv (test code = 11 U/L 5-35 1742-6) AST(SGOT) (test code = 23 U/L 13-40 2248678325) eGFR Calculation mL/min/1.73m2 (Non-) (test code = 7057105614) eGFR Calculation mL/min/1.73m2 () (test code = 0013568038) SREE (test code = SREE) Association of [...] or urine or abnormalities in imaging tests). [facility] / [facility] - DRUG SCREEN [id number] 23:25:00 Test Item Value Reference Range Interpretation Comments BENZO U (test code = Negative Negative 8881658853) JAGJIT U (test code = Negative Negative 1884699502) AMPHET (test code = Negative Negative 2598219664) THC (test code = Negative Negative 8726090101) METHADONE (test code = Negative Negative 0343162895) Meth U (test code = Negative Negative 3361600520) OPIATES (test code = Negative Negative 0841049749) Cocaine Metabolite (test Negative Negative code = 8802875865) PROPOXY (test code = Negative Negative 0763178903) Tric U (test code = Negative Negative 0468823905) PCP (test code = Negative Negative 0308881738) OXYCOD (test code = Negative Negative 1911152514) SREE (test code = SREE) Urine Drug [...] testing). Lab Interpretation (test Normal code = 81418-2) [facility]"
[2023-04-09 15:53] LABS: Hematocrit 38.1 % (36.0-45.0); MCV 97.8 fL (80-100); MPV 8.3 fL (7.6-11.3); Platelets 247 thou/uL (152-406); RBC Red Blood Cell Count 3.89 M/uL (3.86-4.86)
--- NOTE | 2023-04-09 16:17 | ER ---
Nurse's Notes [facility] Name: Pedro Luis Ruano Age: 22 yrs Sex: Female : 2000 Arrival Date: 04/09/2023 Time: 15:03 Bed 9 Private MD: Diagnosis: Other malaise and fatigue Presentation: 04/09 15:33 Chief complaint: Patient states: Body aches for 2 weeks, getting worse, along with sore nj1 throat for 2 days. 15:33 Coronavirus screen: Vaccine status: Patient reports being unvaccinated. Ebola Screen: nj1 Patient denies travel to an Ebola-affected area in the 21 days before illness onset. Initial Sepsis Screen: Does the patient meet any 2 criteria? No. Patient's initial sepsis screen is negative. Does the patient have a suspected source of infection? No. Patient's initial sepsis screen is negative. Risk Assessment: Do you want to hurt yourself or someone else? Patient reports no desire to harm self or others. Onset of symptoms was March 2023. 15:33 Acuity: ALFREDA 4 nj1 15:37 Method Of Arrival: Ambulatory [facility] Historical: - Allergies: 15:38 No Known Allergies; nj1 - PMHx: 15:38 Anemia; Seizures; nj1 - Immunization history:: Client reports having NOT received the Covid vaccine. - Social history:: Smoking status: Reported history of juuling and/or vaping. Vital Signs: 15:33 BP 128 / 77; Pulse 78; Resp 16; Temp 98.2(O); Pulse Ox 99% on R/A; Weight 67.13 kg; nj1 Height 5 ft. 2 in. ; Pain 7/10; 15:33 Body Mass Index 27.07 (67.13 kg, 157.48 cm) nj1 15:33 Pain Scale: Adult [facility] ED Course: 15:04 Patient arrived in ED. rg4 15:13 [facility] jh7 15:13 Mravin Darling MD is Attending Physician. jh7 15:38 Triage completed. nj1 15:39 Arm band placed on right wrist. nj1 15:42 Lois Carrera is Primary Nurse. cp4 15:44 Initial lab(s) drawn, by me, sent to lab. Inserted saline lock: 20 gauge in right kj1 antecubital area, using aseptic technique. Blood collected. 15:44 Flu Sent. kj1 15:44 Strep Sent. kj1 16:00 PHCP role handed off by Heidi Abreu FNP snw 16:00 Sierra Armando FNP-C is PHCP. snw 16:01 Sierra Armando FNP-C is PHCP. snw Administered Medications: No medications were administered Outcome: 16:16 Discharge ordered by . snw 16:37 Patient left the ED. kj1 Signatures: Sierra Armando FNP-C KAL-Caityw Lisa Merritt rg4 Gita Christine kj1 Heidi Abreu FNP FNP jh7 Kemi Claudio, RN RN nj1 Lois Carrera cp4
--- NOTE | 2023-04-09 16:17 | EDPHYS ---
Physician Documentation [facility] Name: Pedro Luis Ruano Age: 22 yrs Sex: Female : 2000 Arrival Date: 04/09/2023 Time: 15:03 Bed 9 Private MD: ED Physician Marvin Darling HPI: 04/09 15:13 This 22 yrs old Black Female presents to ER via Unassigned with complaints of Body jh7 Aches. 15:13 Onset: The symptoms/episode began/occurred 2 week(s) ago, and became worse today. jh7 Associated signs and symptoms: Pertinent positives: sore throat, Whole body tingling and sore throat., Pertinent negatives: abdominal pain, chest pain, cough, diarrhea, fever, shortness of breath. 15:31 Patient reports symptoms occurring intermittently for 2 weeks but worse today. She jh7 states that the sore throat is needed. She reports that she was seen for this before here and was diagnosed with anxiety, but presented to [place] ER for the same thing who informed her that her potassium was low. Patient is concerned of hypokalemia.. Historical: - Allergies: 15:38 No Known Allergies; nj1 - PMHx: 15:38 Anemia; Seizures; nj1 - Immunization history:: Client reports having NOT received the Covid vaccine. - Social history:: Smoking status: Reported history of juuling and/or vaping. ROS: 15:13 Eyes: Negative for injury, pain, redness, and discharge, Neck: Negative for injury, jh7 pain, and swelling, Cardiovascular: Negative for chest pain, palpitations, and edema, Respiratory: Negative for shortness of breath, cough, wheezing, and pleuritic chest pain, Back: Negative for injury and pain, MS/Extremity: Negative for injury and deformity, Skin: Negative for injury, rash, and discoloration, 15:13 Constitutional: Positive for body aches, 15:13 ENT: Positive for sore throat, 15:13 Neuro: Positive for numbness, Negative for altered mental status, dizziness, syncope, visual changes, weakness, 15:13 All other systems are negative, Exam: 15:13 Constitutional: This is a well developed, well nourished patient who is awake, alert, jh7 and in no acute distress. Head/Face: Normocephalic, atraumatic. Eyes: Pupils equal round and reactive to light, extra-ocular motions intact. Lids and lashes normal. Conjunctiva and sclera are non-icteric and not injected. Cornea within normal limits. Periorbital areas with no swelling, redness, or edema. ENT: Nares patent. No nasal discharge, no septal abnormalities noted. Tympanic membranes are normal and external auditory canals are clear. Oropharynx with no redness, swelling, or masses, exudates, or evidence of obstruction, uvula midline. Mucous membranes moist. Neck: Trachea midline, no thyromegaly or masses palpated, and no cervical lymphadenopathy. Supple, full range of motion without nuchal rigidity, or vertebral point tenderness. No Meningismus. Cardiovascular: Regular rate and rhythm with a normal S1 and S2. No gallops, murmurs, or rubs. Normal PMI, no JVD. No pulse deficits. Respiratory: Lungs have equal breath sounds bilaterally, clear to auscultation and percussion. No rales, rhonchi or wheezes noted. No increased work of breathing, no retractions or nasal flaring. Abdomen/GI: Soft, non-tender, with normal bowel sounds. No distension or tympany. No guarding or rebound. No evidence of tenderness throughout. Skin: Warm, dry with normal turgor. Normal color with no rashes, no lesions, and no evidence of cellulitis. MS/ Extremity: Pulses equal, no cyanosis. Neurovascular intact. Full, normal range of motion. Neuro: Awake and alert, GCS 15, oriented to person, place, time, and situation. Cranial nerves II-XII grossly intact. Motor strength 5/5 in all extremities. Sensory grossly intact. Cerebellar exam normal. Normal gait. Vital Signs: 15:33 BP 128 / 77; Pulse 78; Resp 16; Temp 98.2(O); Pulse Ox 99% on R/A; Weight 67.13 kg; ut1 Height 5 ft. 2 in. ; Pain 7/10; 15:33 Body Mass Index 27.07 (67.13 kg, 157.48 cm) [facility] 15:33 Pain Scale: Adult [facility] MDM: 15:13 Patient medically screened. [facility] 16:15 Differential diagnosis: viral Infection, bacterial infection. Data reviewed: vital snw signs, nurses notes, lab test result(s). I considered the following discharge prescriptions or medication management in the emergency department Pain Medications: At this time, prescription pain medications are not recommended. Counseling: I had a detailed discussion with the patient and/or guardian regarding the historical points, exam findings, and any diagnostic results supporting the discharge/admit diagnosis, lab results, the need for outpatient follow up, for definitive care, to return to the emergency department if symptoms worsen or persist or if there are any questions or concerns that arise at home. Special discussion: Based on the history and exam findings, there is no indication for further emergent testing or inpatient evaluation. I discussed with the patient/guardian the need to see the primary care provider for further evaluation of the symptoms. 04/09 15:20 Order name: BMP; Complete Time: 16:15 [facility] 04/09 15:20 Order name: CBC w/o diff; Complete Time: 16:11 [facility] 04/09 15:20 Order name: Strep; Complete Time: 16:11 [facility] 04/09 15:20 Order name: Flu; Complete Time: 16:15 [facility] 04/09 16:12 Order name: Throat Culture EDMS Administered Medications: No medications were administered Disposition Summary: 04/09/23 16:16 Discharge Ordered Notes: Location: Home snw Condition: Stable snw Diagnosis - Other malaise and fatigue snw Followup: snw - With: Emergency Department - When: As needed - Reason: Worsening of condition Followup: snw - With: Private Physician - When: 2 - 3 days - Reason: Recheck today's complaints, Continuance of care, Re-evaluation by your physician Discharge Instructions: - Discharge Summary Sheet snw - Fatigue snw - Viral Illness, Adult snw Forms: - Medication Reconciliation Form snw - Thank You Letter snw - Antibiotic Education snw - Prescription Opioid Use snw - Patient Portal Instructions snw - Leadership Thank You Letter snw Prescriptions: - Mobic 7.5 mg Oral Tablet - take 1 tablet ORAL route once daily take with food; 20 tablet; Refills: 0, snw Product Selection Permitted Signatures: Dispatcher [employer] Sierra Staples FNP-C FNP-Caityw Heidi Abreu FNP [employer] Kemi Claudio, RN RN nj1 Corrections: (The following items were deleted from the chart) 15:32 15:13 Associated signs and symptoms: Pertinent positives: sore throat, Whole body jh7 tingling and sore throat., Pertinent negatives: abdominal pain, chest pain, cough, diarrhea, fever, shortness of breath, jh7
[2023-04-09 17:00] VITALS: BP 128/77; TEMP 98.2; O2SAT 99
== END 2023-04-09 16:37 | disposition home or self-care (01) ==
LOC: ER 15:03
DX: R53.81 Other malaise (principal); R53.83 Other fatigue
CPT/HCPCS: 36415; 80048; 85027; 87070; 87081; 87804; 99283

== ENCOUNTER 2023-04-26 01:15 | Emergency (ER) | payer SELFPAY ==
--- OUTSIDE RECORDS SUMMARY | 2023-04-26 01:19 | XMS REPORT | Continuity of Care Document ---
Author Name Unknown Address [address] [place] [address] [facility] thconnect Address [address] [place] [address] Care Team Providers Care Hog Ringer Name Role Phone PCP, PATIENT DOES NOT HAVE A Primary Care Physic kendall Unavailable SULMA SHAFFER Attending Clinician Unavailable Sulma Do Attending Clinician [phone] DILLON FULLER Attending Clinician Unavailable Diana Doss PA-C Attending Clinician [phone] Dillon Fuller MD Attending Clinician [phone] Doctor Unassigned, [place] Attending Clinician U Chanel Pena MD Attending Clinician [phone] CHANEL MCDONALD Attending Clinician Unavailable Candido Gutierrez DO Attending Clinician [phone] CANDIDO GUTIERREZ Attending Clinician Unavailable SULMA SHAFFER Admitting Clinician Unavailable Payers Payer Name Policy Type Policy Number Effective Date Expirati on Date Source [facility] STAR [id number] 2018 00:00:00 Problems Condition Name Condition Details Condition Category Status Onset Date Resolution Date Last Treatment Date Treating Clinician Comments Source Irregular menstrual cycle Irregular menstrual cycle Disease Active 12-06 00:00: 00 [facility] No known active problems No known active problems Disease [facility] Allergies, Adverse Reactions, Alerts Allergy Name Allergy Type Status Severity Reaction(s) Onset Date Inactive Date Treating Clinician Comments Source NO KNOWN ALLERGIE S Drug Class Active [facility] Social History Social Habit Start Date Stop Date Quantity Comments Source Sexual orientation [facility] Exposure to SARS-CoV-2 (event) Not sure [facility] Alcohol intake 2023-03-13 00:00:00 2023-03-13 00:00:00 1.43 /d [facility] Tobacco use and exposure 2021-02-07 00:00:00 2021-02-07 00:00:00 Smokeless tobacco non-user [facility] History of tobacco use 2021-01-31 00:00:00 Cigarette Smoker [facility] Tobacco Comment 2020-12-06 00:00:00 2020-12-06 00:00:00 smokes 5 cigarettes per week [facility] History of Social function 2020-12-06 00:00:00 2020-12-06 00:00:00 [facility] Sex Assigned At 2000 00:00:00 2000 00:00:00 [facility] Smoking Status Start Date Stop Date Source Ex-smoker 2021-02-07 00:00:00 2021-02-07 00:00:00 [facility] Current some day smoker 2020-12-06 00:00:00 [facility] Unknown if ever smoked [facility] Medications Ordered Medication Name Filled Medication Name Start Date Stop Date Current Medication? Ordering Clinician Indication Dosage Frequency Signature (SIG) Comments Components Source ondansetron (ZOFRAN-ODT ) disintegrat ing tablet 4 mg 2022-05 20:30: 00 03-13 21:17 :00 No 4mg 4 mg, Oral, ONCE, 1 dose, On Sat03/13/23 at 1530, PHI [facility] norelgestro min-ethinyl estradiol (XULANE) 150-35 mcg/24 hr patch 02-07 00:00: 00 Yes [id number] 1{patch } Apply 1 Patch to skin weekly. [facility] norelgestro min-ethinyl estradiol (XULANE) 150-35 mcg/24 hr patch 02-07 00:00: 00 Yes [id number] 1{patch } Apply 1 Patch to skin weekly. [facility] norelgestro min-ethinyl estradiol (XULANE) 150-35 mcg/24 hr patch 02-07 00:00: 00 Yes [id number] 1{patch } Apply 1 Patch to skin weekly. [facility] norelgestro min-ethinyl estradiol (XULANE) 150-35 mcg/24 hr patch 02-07 00:00: 00 Yes [id number] 1{patch } Apply 1 Patch to skin weekly. [facility] norelgestro min-ethinyl estradiol (XULANE) 150-35 mcg/24 hr patch 02-07 00:00: 00 Yes [id number] 1{patch } Apply 1 Patch to skin weekly. [facility] metroNIDAZO LE 500 mg tablet 01-11 00:00: 00 Yes TAKE 4 TABLETS BY MOUTH ONCE NOW FOR 1 DOSE. [facility] metroNIDAZO LE 500 mg tablet 01-11 00:00: 00 Yes TAKE 4 TABLETS BY MOUTH ONCE NOW FOR 1 DOSE. [facility] metroNIDAZO LE 500 mg tablet 01-11 00:00: 00 Yes TAKE 4 TABLETS BY MOUTH ONCE NOW FOR 1 DOSE. [facility] metroNIDAZO LE 500 mg tablet 01-11 00:00: 00 Yes TAKE 4 TABLETS BY MOUTH ONCE NOW FOR 1 DOSE. [facility] metroNIDAZO LE 500 mg tablet 01-11 00:00: 00 Yes TAKE 4 TABLETS BY MOUTH ONCE NOW FOR 1 DOSE. [facility] cephALEXin (KEFLEX) 500 mg capsule 08-07 00:00: 00 Yes [id number] 500mg Take 1 capsule by mouth 3 (three) times daily. [facility] cephALEXin (KEFLEX) 500 mg capsule 08-07 00:00: 00 Yes [id number] 500mg Take 1 capsule by mouth 3 (three) times daily. [facility] cephALEXin (KEFLEX) 500 mg capsule 3- 00:00: 00 12-06 00:00 :00 No [id number] 500mg Take 1 capsule by mouth 3 (three) times daily. [facility] proMETHazin e 25 mg tablet 11-19 00:00: 00 Yes [id number] 25mg Take 1 tablet by mouth every 6 (six) hours as needed for Nausea and Vomiting (N/V). [facility] proMETHazin e 25 mg tablet 11-19 00:00: 00 Yes [id number] 25mg Take 1 tablet by mouth every 6 (six) hours as needed for Nausea and Vomiting (N/V). [facility] proMETHazin e 25 mg tablet 11-19 00:00: 00 Yes [id number] 25mg Take 1 tablet by mouth every 6 (six) hours as needed for Nausea and Vomiting (N/V). [facility] proMETHazin e 25 mg tablet 11-19 00:00: 00 12-06 00:00 :00 No [id number] 25mg Take 1 tablet by mouth every 6 (six) hours as needed for Nausea and Vomiting (N/V). [facility] Vital Signs Vital Name Observation Time Observation Value Comments S ource Systolic blood pressure 2023-03-13 21:16:06 154 mm[Hg] [facility] Diastolic blood pressure 2023-03-13 21:16:06 93 mm[Hg] [facility] Heart rate 2023-03-13 21:16:06 92 /min [facility] Body temperature 2023-03-13 21:16:06 36.78 Melody [facility] Respiratory rate 2023-03-13 21:16:06 18 /min [facility] Oxygen saturation in Arterial blood by Pulse oximetry 2023-03-13 21:16:06 98 /min [facility] Body height 2023-03-13 19:02:00 157.5 cm [facility] Body weight 2023-03-13 19:02:00 67.223 kg [facility] BMI 2023-03-13 19:02:00 27.11 kg/m2 [facility] Systolic blood pressure 2021-02-07 20:05:00 105 mm[Hg] [facility] Diastolic blood pressure 2021-02-07 20:05:00 71 mm[Hg] [facility] Heart rate 2021-02-07 20:05:00 85 /min [facility] Body temperature 2021-02-07 20:05:00 36.78 Melody [facility] Respiratory rate 2021-02-07 20:05:00 16 /min [facility] Body height 2021-02-07 20:05:00 157.5 cm [facility] Body weight 2021-02-07 20:05:00 57.664 kg [facility] BMI 2021-02-07 20:05:00 23.25 kg/m2 [facility] Systolic blood pressure 2020-12-06 14:57:00 124 mm[Hg] [facility] Diastolic blood pressure 2020-12-06 14:57:00 71 mm[Hg] [facility] Heart rate 2020-12-06 14:57:00 106 /min [facility] Body temperature 2020-12-06 14:57:00 36.78 Melody [facility] Respiratory rate 2020-12-06 14:57:00 18 /min [facility] Body height 2020-12-06 14:57:00 154.9 cm [facility] Body weight 2020-12-06 14:57:00 56.274 kg [facility] BMI 2020-12-06 14:57:00 23.44 kg/m2 [facility] Heart rate 2020-08-07 12:30:00 110 /min [facility] Oxygen saturation in Arterial blood by Pulse oximetry 2020-08-07 12:30:00 100 /min [facility] BMI 2020-08-07 12:06:00 23.62 kg/m2 [facility] Systolic blood pressure 2020-08-07 12:06:00 141 mm[Hg] [facility] Diastolic blood pressure 2020-08-07 12:06:00 84 mm[Hg] [facility] Body temperature 2020-08-07 12:06:00 37.06 Melody [facility] Respiratory rate 2020-08-07 12:06:00 16 /min [facility] Body height 2020-08-07 12:06:00 154.9 cm [facility] Body weight 2020-08-07 12:06:00 56.7 kg Simultaneous filing. User may not have seen previous data. [facility] Heart rate 2020-08-07 12:30:00 110 /min [facility] Oxygen saturation in Arterial blood by Pulse oximetry 2020-08-07 12:30:00 100 /min [facility] BMI 2020-08-07 12:06:00 23.62 kg/m2 [facility] Systolic blood pressure 2020-08-07 12:06:00 141 mm[Hg] [facility] Diastolic blood pressure 2020-08-07 12:06:00 84 mm[Hg] [facility] Body temperature 2020-08-07 12:06:00 37.06 Melody [facility] Respiratory rate 2020-08-07 12:06:00 16 /min [facility] Body height 2020-08-07 12:06:00 154.9 cm [facility] Body weight 2020-08-07 12:06:00 56.7 kg Simultaneous filing. User may not have seen previous data. [facility] Systolic blood pressure 2020-04-23 01:00:00 107 mm[Hg] [facility] Diastolic blood pressure 2020-04-23 01:00:00 61 mm[Hg] [facility] Heart rate 2020-04-23 01:00:00 76 /min [facility] Respiratory rate 2020-04-23 01:00:00 11 /min [facility] Oxygen saturation in Arterial blood by Pulse oximetry 2020-04-23 01:00:00 99 /min [facility] Body temperature 2020-04-22 22:41:00 36.72 Melody [facility] Body weight 2020-04-22 22:41:00 52.164 kg [facility] Systolic blood pressure 2020-04-23 01:00:00 107 mm[Hg] [facility] Diastolic blood pressure 2020-04-23 01:00:00 61 mm[Hg] [facility] Heart rate 2020-04-23 01:00:00 76 /min [facility] Respiratory rate 2020-04-23 01:00:00 11 /min [facility] Oxygen saturation in Arterial blood by Pulse oximetry 2020-04-23 01:00:00 99 /min [facility] Body temperature 2020-04-22 22:41:00 36.72 Melody [facility] Body weight 2020-04-22 22:41:00 52.164 kg [facility] Procedures Procedure Date / Time Performed Performing Clinician Source POCT TEST 2023-03-13 21:17:00 Nadia Shaffer [facility] URINALYSIS 2023-03-13 21:15:00 Sulma Shaffer [facility] ASSIGNMENT OF BENEFITS 2023-03-13 20:24:50 Docto r Unassigned, [place] [facility] XR FOOT <3 VW RIGHT 2023-03-13 20:04:33 Nadia Shaffer [facility] CONSENT/REFUSAL FOR DIAGNOSIS AND TREATMENT 2023-03-13 18:52:15 Doctor Unassigned, [place] [facility] CONSENT FOR CONTRACEPTION 2021-02-07 05:01:00 Doctor Unassigned, [place] [facility] POCT TEST 2021-02-07 00:00:00 Caitlin Doss [facility] GC & CHLAMYDIA AMPLIFIED ASSAY 2020-12-06 15:11:00 Dillon Fuller [facility] TRICHOMONAS AMPLIFIED ASSAY 2020-12-06 15:11:00 Dillon Fuller [facility] ASSIGNMENT OF BENEFITS 2020-12-06 14:42:15 Docto r Unassigned, [place] [facility] POCT TEST 2020-12-06 00:00:00 Dillon Fuller [facility] URINALYSIS 2020-08-07 12:12:00 Chanel Mcdonald [facility] POCT TEST 2020-08-07 12:12:00 Angela Mcdonald [facility] ADC / LCC - DRUG SCREEN TRIAGE 2020-08-07 12:12:00 Chanel Mcdonald [facility] LACTIC ACID WHOLE BLOOD 2020-08-07 12:09:00 Do bekah Mcdonald [facility] MAGNESIUM 2020-08-07 12:08:00 Chanel Mcdonald [facility] HEPATIC FUNCTION PANEL ([id number]) (ALB,T.PRO,BILI T,BU/BC,ALT,AST,ALK PHOS) 2020-08-07 12:08:00 Chanel Mcdonald [facility] BASIC METABOLIC PANEL (NA, K, CL, CO2, GLUCOSE, BUN, CREATININE, CA) 2020-08-07 12:08:00 Chanel Mcdonald [facility] CBC WITH DIFF 2020-08-07 12:08:00 Chanel Mcdonald [facility] POCT GLUCOSE (AUTOMATED) 2020-08-07 12:06:00 Marly Mcdonald [facility] URINALYSIS 2020-04-23 00:23:00 [facility] ADC / LCC - DRUG SCREEN TRIAGE 2020-04-22 22:56:00 Candido Gutierrez [facility] COMP. METABOLIC PANEL ([id number]) 2020-04-22 22:53:00 Candido Gutierrez [facility] SALICYLATE 2020-04-22 22:53:00 [facility] ETHANOL 2020-04-22 22:53:00 [facility] Encounters Start Date/Time End Date/Time Encounter Type Admission Type Attending [facility] Care Facility Care Department Encounter ID Source 2023-03-13 14:06:00 2023-03-13 18:03:00 Emergency X SULMA SHAFFER [facility] ERT [id number] [facility] 2023-03-13 14:06:00 2023-03-13 18:03:00 Emergency ShafferSulma [facility] [id number] 350.1.13.10 4.2.7.2.686 [id number] [facility] 2021-02-16 15:00:00 2021-02-16 15:00:00 Outpatient DILLON [facility]OMAS [facility] [id number] [facility] 2021-02-07 14:50:27 2021-02-07 15:20:27 Office Visit Selam Diana Fuller [facility] 1.2.840.114 350.1.13.10 4.2.7.2.686 [id number] [facility] 2021-02-07 15:00:00 2021-02-07 15:00:00 Outpatient [facility] [id number] [facility] 2021-02-07 00:00:00 2021-02-07 00:00:00 Orders Only Doctor Unassigned, [place] [facility] 1.2840.114 350.1.13.10 4.2.7.2.686 [id number] [id number] [facility] 2021-01-09 00:00:00 2021-01-09 00:00:00 Telephone Ramone Dillon [facility] 1.2840.114 350.1.13.10 4.2.7.2.686 [id number] [facility] 2020-12-06 09:43:25 2020-12-06 13:05:32 Office Visit Dillon Fuller [facility] 1.2.840.114 350.1.13.10 4.2.7.2.686 [id number] [facility] 2020-12-06 10:00:00 2020-12-06 10:00:00 Outpatient R [facility] [id number] [facility] 2020-12-06 00:00:00 2020-12-06 00:00:00 Orders Only Doctor Unassigned, [place] [facility] 1.2840.114 350.1.13.10 4.2.7.2.686 [id number] [facility] 2020-12-06 00:00:00 2020-12-06 00:00:00 Orders Only Doctor Unassigned, [place] [facility] 1.2.840.114 350.1.13.10 4.2.7.2.686 [id number] 2020-08-07 07:07:00 2020-08-07 08:22:00 Emergency Chanel Mcdonald [facility] 1.2.840.114 350.1.13.10 4.2.7.2.686 [id number] [facility] 2020-08-07 07:07:00 2020-08-07 08:22:00 Emergency Chanel Mcdonald [facility] 1.2.840.114 350.1.13.10 4.2.7.2.686 [id number] 2020-08-07 07:07:00 2020-08-07 07:07:00 Emergency CHANEL CANSECO [facility] ERT [id number] [facility] 2020-04-22 16:38:00 2020-04-22 19:41:00 Emergency Candido Gutierrez [facility] 1.2.840.114 350.1.13.10 4.2.7.2.686 [id number] [facility] 2020-04-22 16:38:00 2020-04-22 19:41:00 Emergency Candido Gutierrez [facility] 1.2.840.114 350.1.13.10 4.2.7.2.686 [id number] 2020-04-22 16:38:00 2020-04-22 16:38:00 Emergency CANDIDO CHAVES [facility] ERT [id number] [facility] Results Test Description Test Time Test Comments Results Result Co mments Source [id number]:14:00* Test Item Value Reference Range Interpretation Comme nts POCT PREG (test code = 1605) Negative On board controls acceptable with C Line (test code = 3574) Yes POCT PREG LOT # (test code = 3575) POCT PREG TEST DATE ( test code = 3576) [facility] [id number] 20:14:00* Test Item Value Reference Range Interpretation Comme nts POCT PREG (test code = 1605) Negative On board controls acceptable with C Line (test code = 3574) Yes POCT PREG LOT # (test code = 3575) POCT PREG TEST DATE ( test code = 3576) [facility] [id number] 20:14:00* Test Item Value Reference Range Interpretation Comme nts POCT PREG (test code = 1605) Negative On board controls acceptable with C Line (test code = 3574) Yes POCT PREG LOT # (test code = 3575) POCT PREG TEST DATE ( test code = 3576) [facility] CHLAMYDIA AMPLIFIED [id number] 19:35:20* Test Item Value Reference Range Interpretation Comme nts C. trachomatis Nucleic Acid (test code = 21347-3) Negative Negative N. gonorrhoeae Nucleic Acid (test code = 46156-0) Negative Negative SREE (test code = SREE) Reliable results a re dependent on adequate specimen collection. ? A [...] trachomatis and/or Neisseria gonorrhoeae NAAT. Lab Interpretation (test code = 36367-3) Normal [facility] [id number] 19:25:22 * Test Item Value Reference Range Interpretation Comme nts Trichomonas Nucleic Acid (test code = 27422-2) Positive Negative A SREE (test code = SREE) Reliable results a re dependent on adequate specimen collection. ? A [...] data available to the clinician. Lab Interpretation (test code = 52891-3) Abnormal [facility] [id number] 15:13:00* Test Item Value Reference Range Interpretation Comme nts POCT PREG (test code = 1605) Negative On board controls acceptable with C Line (test code = 3574) Yes POCT PREG LOT # (test code = 3575) POCT PREG TEST DATE ( test code = 3576) [facility] / C - DRUG SCREEN [id number] 13:11:01* Test Item Value Reference Range Interpretation Comme nts BENZO U (test code = 8724408905) Negative Negative JAGJIT U (test code = 4249854123) Negative Negative AMPHET (test code = 2603642595) Presumptive Positive Negative A THC (test code = 7652597381) Negative Negative METHADONE (test code = 8109870254) Negative Negative Meth U (test code = 8599123714) Presumptive Positive Negative A OPIATES (test code = 7359676977) Negative Negative Cocaine Metabolite (test code = 0046278175) Negative Negative PROPOXY (test code = 0661483113) Negative Negative Tric U (test code = 9219047678) Negative Negative PCP (test code = 8594213676) Negative Negative OXYCOD (test code = 8709425044) Negative Negative SREE (test code = SREE) Urine Drug [...] employment testing, legal testing). Lab Interpretation (test code = 18422-7) Abnormal [facility] (ALB, T.PRO, BILI T, BU/BC, ALT, AST, ALK PHOS)2020-08-07 12:49:21* Test Item Value Reference Range Interpretation Comme nts TOTAL BILI (test code = 8120604236) 0.4 mg/dL 0.1-1.1 BILI UNCON (test code = 8771070380) 0.3 mg/dL 0.1-1.1 BILI CONJ (test code = 1579746490) 0.0 mg/dL 0.0-0.3 T PROTEIN (test code = 7412600794) 7.9 g/dL 6.3-8.2 ALBUMIN (test code = 8431688131) 4.7 g/dL 3.5-5.0 ALK PHOS (test code = 1738016919) 80 U/L 34-122 ALTv (test code = 1742-6) 10 U/L 5-35 AST(SGOT) (test code = 7061472225) 21 U/L 13-40 Lab Interpretation (test cod e = 47768-9) Normal [facility] 12:49:21* Test Item Value Reference Range Interpretation Comme nts MAGNESIUM (test code = 8349478139) 1.8 mg/dL 1.7-2.4 Lab Interpretation (test cod e = 90862-8) Normal [facility] Metabolic Panel (NA, K, CL, CO2, GLUCOSE, BUN, CREATININE, CA)2020-08-07 12:49:00* Test Item Value Reference Range Interpretation Comme nts NA (test code = 4958390620) 142 mmol/L 135-145 K (test code = 2393909483) 3.6 mmol/L 3.5-5.0 CL (test code = 0362173831) 106 mmol/L 98-108 CO2 TOTAL (test code = 3003470881) 25 mmol/L 23-31 AGAP (test code = 3979505123) 2-16 BUN (test code = 6773292191) 10 mg/dL 7-23 GLUCOSE (test code = 1912877296) 99 mg/dL 70-110 CREATININE (test code = 4490377050) 0.76 mg/dL 0.50-1.04 CALCIUM (test code = 4378754767) 8.9 mg/dL 8.6-10.6 eGFR Calculation (Non-) (test code = 1522945408) mL/min/1.73m2 eGFR Calculation () (test code = 7318474297) mL/min/1.73m2 SREE (test code = SREE) Association of [...] or urine or abnormalities in imaging tests). [facility] 12:43:34* Test Item Value Reference Range Interpretation Comme nts APPEARANCE (test code = 3149612439) Hazy Clear A COLOR (test code = 7587969010) Yellow Yellow PH (test code = 5002502341) 4.8-8.0 SP GRAVITY (test code = 8532289952) 1.003-1.030 GLU U QUAL (test code = 6606717356) Normal Normal BLOOD (test code = 5381027567) Negative Negative KETONES (test code = 0780753244) Negative Negative PROTEIN (test code = 2887-8) 30 mg/dL Negative A UROBILIN (test code = 4080505667) 4.0 mg/dL Normal A BILIRUBIN (test code = 9419906794) Negative Negative NITRITE (test code = 4075368315) Negative Negative LEUK AMI (test code = 4347347476) 500/uL Negative A RBC/HPF (test code = 8674042896) See_Comment H [Automated [employer] ge] The system which generated this result transmitted reference range: 0 - 3 HPF. The reference range was not used to interpret this result as normal/abnormal. WBC/HPF (test code = 1984698981) See_Comment H [Automated [employer]] The system which generated this result transmitted reference range: 0 - 5 HPF. The reference range was not used to interpret this result as normal/abnormal. BACTERIA (test code = 8692543256) Few Negative A MUCOUS (test code = 6539116437) Moderate Negative LPF A SQ EPITH (test code = 9127243511) HPF HYAL CAST (test code = 2650899268) See_Comment [Automated [employer]] The system which generated this result transmitted reference range: <=2 LPF. The reference range was not used to interpret this result as normal/abnormal. Lab Interpretation (test code = 53266-8) Abnormal [facility] acute hospital with [id number] 12:36:58* Test Item Value Reference Range Interpretation Comme nts WBC (test code = 6690-2) See_Comment [Automated messa ge] The system which generated this result transmitted reference range: 4.30 - 11.10 10*3/?L. The reference range was not used to interpret this result as normal/abnormal. RBC (test code = 789-8) See_Comment [Automated messa ge] The system which generated this result transmitted reference range: 3.93 - 5.25 10*6/?L. The reference range was not used to interpret this result as normal/abnormal. HGB (test code = 718-7) 13.2 g/dL 11.6-15.0 HCT (test code = 4544-3) 39.7 % 35.7-45.2 MCV (test code = 787-2) 93.9 fL 80.6-95.5 MCH (test code = 785-6) 31.2 pg 25.9-32.8 MCHC (test code = 786-4) 33.2 g/dL 31.6-35.1 RDW-SD (test code = 94602-5) 44.4 fL 39.0-49.9 RDW-CV (test code = 788-0) 12.9 % 12.0-15.5 PLT (test code = 777-3) See_Comment [Automated messa ge] The system which generated this result transmitted reference range: 166 - 358 10*3/?L. The reference range was not used to interpret this result as normal/abnormal. MPV (test code = 99704-0) 9.9 fL 9.5-12.9 NRBC/100 WBC (test code = 7993025084) See_Comment [Automated [employer]] The system which generated this result transmitted reference range: 0.0 - 10.0 /100 WBCs. The reference range was not used to interpret this result as normal/abnormal. NRBC x10^3 (test code = 3014638114) <0.01 See_Comment [Automated messa ge] The system which generated this result transmitted reference range: 10*3/?L. The reference range was not used to interpret this result as normal/abnormal. GRAN MAT (NEUT) % (test code = 770-8) 48.9 % IMM GRAN % (test code = 5791662705) 0.40 % LYMPH % (test code = 736-9) 39.1 % MONO % (test code = 5905-5) 8.4 % EOS % (test code = 713-8) 2.4 % BASO % (test code = 706-2) 0.8 % GRAN MAT x10^3(ANC) (test code = 7764207512) 4.66 10*3/uL 1.88-7.09 IMM GRAN x10^3 (test code = 0764083826) 0.04 10*3/uL 0.00-0.06 LYMPH x10^3 (test code = 731-0) 3.73 10*3/uL 1.32-3.29 H MONO x10^3 (test code = 742-7) 0.80 10*3/uL 0.33-0.92 EOS x10^3 (test code = 711-2) 0.23 10*3/uL 0.03-0.39 BASO x10^3 (test code = 704-7) 0.08 10*3/uL 0.01-0.07 H Lab Interpretation (test code = 55307-7) Abnormal [facility] Acid Whole [id number] 12:16:25* Test Item Value Reference Range Interpretation Comme nts LACTIC ACID (test code = 7069738159) 2.19 mmol/L 0.50-2.20 Lab Interpretation (test cod e = 08685-0) Normal [facility] [id number] 12:12:00* Test Item Value Reference Range Interpretation Comme nts POCT PREG (test code = 1605) negative On board controls acceptable with C Line (test code = 3574) present POCT PREG LOT # (test code = 3575) [id number] POCT PREG TEST DATE ( test code = 3576) 2022-02-16 Lab Interpretation (test cod e = 64556-6) Normal [facility] GLUCOSE (AUTOMATED)2020-08-07 12:09:13* Test Item Value Reference Range Interpretation Comme nts POCT GLU (test code = 8941454286) 95 mg/dL 70-110 Lab Interpretation (test cod e = 88085-5) [facility]* Test Item Value Reference Range Interpretation Comme nts APPEARANCE (test code = 4053774484) Clear Clear COLOR (test code = 7558709158) Yellow Yellow PH (test code = 6354145663) 4.8-8.0 SP GRAVITY (test code = 4463590764) <=1.005 1.003-1.030 GLU U QUAL (test code = 5510268558) Negative Negative BLOOD (test code = 4465857616) Negative Negative KETONES (test code = 0479692282) Negative Negative PROTEIN (test code = 2887-8) Negative Negative UROBILIN (test code = 5473852181) 1.0 mg/dL See_Comment [Automated messa ge] The system which generated this result transmitted reference range: 0-1.0 mg/dL. The reference range was not used to interpret this result as normal/abnormal. BILIRUBIN (test code = 2479415767) Negative Negative NITRITE (test code = 0966996367) Negative Negative LEUK AMI (test code = 0205773006) Negative Negative RBC/HPF (test code = 5454120464) <1 See_Comment [Automated messa ge] The system which generated this result transmitted reference range: 0 - 3 HPF. The reference range was not used to interpret this result as normal/abnormal. WBC/HPF (test code = 4995567382) <1 See_Comment [Automated [employer] ge] The system which generated this result transmitted reference range: 0 - 5 HPF. The reference range was not used to interpret this result as normal/abnormal. BACTERIA (test code = 0581900760) Negative Negative Lab Interpretation (test code = 82077-1) [facility]16:00* Test Item Value Reference Range Interpretation Comme nts SALICYLATE (test code = 0557460056) <10 mg/L SREE (test code = SREE) Therapeutic Range: ? Analgesic and Antipyretic Use ? 20-100 mg/L ? ? Anti-Inflammatory Use ? 100-250 mg/L Toxic Range: ? Greater than 300 mg/L [facility] 00:15:00* Test Item Value Reference Range Interpretation Comme nts ACETAMINOP (test code = 8561320305) <10.0 10-30 L SREE (test code = SREE) Toxic: Greater nguyen n 200 ug/mL @ 4 hour post ingestion or greater than 50 ug/mL @ 12 hour post ingestion Lab Interpretation (test code = 98658-1) Abnormal [facility] 00:15:00* Test Item Value Reference Range Interpretation Comme nts ALCOHOL (test code = 1172774046) <10 mg/dL SREE (test code = SREE) <10 [id number] Toxic>100 Depression of ENROLLMENT MANAGEMENT MANAGER>400 Fatalities Reported [facility] (51866)2020-04-23 00:09:00* Test Item Value Reference Range Interpretation Comme nts NA (test code = 7832585194) 138 mmol/L 135-145 K (test code = 6628628780) 3.9 mmol/L 3.5-5 CL (test code = 8267028371) 101 mmol/L 98-108 CO2 TOTAL (test code = 6641716972) 29 mmol/L 23-31 AGAP (test code = 3402102686) 2-16 BUN (test code = 8413789772) 11 mg/dL 7-23 GLUCOSE (test code = 9775205576) 110 mg/dL 70-110 CREATININE (test code = 2913596132) 0.69 mg/dL 0.5-1.04 TOTAL BILI (test code = 9271039119) 0.7 mg/dL 0.1-1.1 CALCIUM (test code = 8919274841) 10.1 mg/dL 8.6-10.6 T PROTEIN (test code = 4778315568) 8.0 g/dL 6.3-8.2 ALBUMIN (test code = 3562346561) 4.7 g/dL 3.5-5 ALK PHOS (test code = 4124263389) 88 U/L 34-122 ALTv (test code = 1742-6) 11 U/L 5-35 AST(SGOT) (test code = 3298627351) 23 U/L 13-40 eGFR Calculation (Non-) (test code = 0678339388) mL/min/1.73m2 eGFR Calculation () (test code = 8328018994) mL/min/1.73m2 SREE (test code = SREE) Association of [...] or urine or abnormalities in imaging tests). [facility] / [facility] - DRUG SCREEN [id number] 23:25:00* Test Item Value Reference Range Interpretation Comme nts BENZO U (test code = 4296622843) Negative Negative JAGJIT U (test code = 2810122387) Negative Negative AMPHET (test code = 0879462245) Negative Negative THC (test code = 6695169549) Negative Negative METHADONE (test code = 9250689064) Negative Negative Meth U (test code = 2092919405) Negative Negative OPIATES (test code = 6736542808) Negative Negative Cocaine Metabolite (test code = 3255724298) Negative Negative PROPOXY (test code = 0964031224) Negative Negative Tric U (test code = 5348359941) Negative Negative PCP (test code = 1380914089) Negative Negative OXYCOD (test code = 9379939361) Negative Negative SREE (test code = SREE) Urine Drug [...] employment testing, legal testing). Lab Interpretation (test code = 51220-0) Normal [facility]"
[2023-04-26] MEDS ORDERED: METHYLPREDNISOLONE 125 MG INJ ONE (01:39)
[2023-04-26] MEDS ORDERED: NA CHLORIDE 0.9% 1,000 ML ONE (01:39)
[2023-04-26] MEDS ORDERED: FAMOTIDINE 20 MG/2 ML VIAL IV ONE (01:39)
[2023-04-26] MEDS ORDERED: DIPHENHYDRAMINE 50 MG/ML VIAL ONE (01:39)
[2023-04-26 01:47] LABS: Specific Gravity 1.029 (1.005-1.030)
[2023-04-26 01:48] LABS: Urine Bacteria None Seen /HPF (<20); Urine Mucus Slight /HPF (None Seen); Urine RBC >50 /HPF (None Seen)
--- NOTE | 2023-04-26 01:49 | ER ---
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 Patient stated is allergic to cinnamon, did not know at the time it had cinnamon ingredient. Coronavirus screen: Vaccine status: Patient reports being unvaccinated. Client denies travel out of the [place] in the last 14 days. At this time, the client does not indicate any symptoms associated with coronavirus-19. Ebola Screen: Patient negative for fever greater than or equal to 101.5 degrees Fahrenheit, and additional compatible Ebola Virus Disease symptoms. Initial Sepsis Screen: Does the patient meet any 2 criteria? No. Patient's initial sepsis screen is negative. Does the patient have a suspected source of infection? No. Patient's initial sepsis screen is negative. Risk Assessment: Do you want to hurt yourself or someone else? Patient reports no desire to harm self or others. 01:19 Method Of Arrival: Ambulatory pf1 01:19 Acuity: ALFREDA 3 pf1 01:30 Onset of symptoms was April 26, 2023 at 01:15. 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 Last tetanus immunization: < 10 years ago Flu vaccine is not up to date. - Social history:: Smoking status: Reported history of juuling and/or vaping. Patient uses alcohol, occasionally. Patient/guardian denies using street drugs. Screenin:28 [facility] ED Fall Risk Assessment (Adult) History of falling in the last 3 months, km8 including since admission No falls in past 3 months (0 pts) Confusion or Disorientation No (0 pts) Intoxicated or Sedated No (0 pts) Impaired Gait No (0 pts) Mobility Assist Device Used No (0 pt) Altered Elimination No (0 pt) Score/Fall Risk Level 0 - 2 = Low Risk Oriented to surroundings, Maintained a safe environment, Educated pt \T\ family on fall prevention, incl call for assistance when getting out of bed, Assessed \T\ reinforced patient's understanding of fall precautions. Abuse screen: Denies threats or abuse. Denies injuries from another. Nutritional screening: No deficits noted. Tuberculosis screening: No symptoms or risk factors identified. Assessment: 01:28 General: Appears in no apparent distress. comfortable, Behavior is calm, cooperative, km8 appropriate for age. Pain: Denies pain. Neuro: Manriquez Agitation-Sedation Scale (RASS): 0 - Alert and Calm Level of Consciousness is awake, alert, obeys commands, Oriented to person, place, time, situation. Cardiovascular: Denies chest pain, shortness of breath, Capillary refill < 3 seconds Patient's skin is warm and dry. Respiratory: Airway is patent Respiratory effort is even, unlabored, Respiratory pattern is regular, symmetrical. GI: No signs and/or symptoms were reported involving the gastrointestinal system. : No signs and/or symptoms were reported regarding the genitourinary system. 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 Derm: Skin is intact, is healthy with good turgor, Skin is dry, Skin is pink, warm \T\ dry. normal, Skin temperature is warm. Musculoskeletal: No signs and/or symptoms reported regarding the musculoskeletal system. Range of motion: intact in all extremities. 02:00 Reassessment: Patient appears in no apparent distress at this time. No changes from km8 previously documented assessment. Patient and/or family updated on plan of care and expected duration. Pain level reassessed. Patient is alert, oriented x 3, equal unlabored respirations, skin warm/dry/pink. Vital Signs: 01:19 BP 132 / 84; Pulse 87; Resp 16; Temp 97.1; Pulse Ox 100% on R/A; Weight 68.04 kg; pf1 Height 5 ft. 2 in. ; Pain 0/10; 01:30 BP 150 / 95; Pulse 100; Resp 16; Pulse Ox 100% on R/A; km8 02:03 BP 131 / 84; Pulse 77; Resp 16; Pulse Ox 100% on R/A; km8 01:19 Body Mass Index 27.44 (68.04 kg, 157.48 cm) pf1 01:19 Pain Scale: Adult pf1 [place] Coma Score: 01:28 Eye Response: spontaneous(4). Motor Response: obeys commands(6). Verbal Response: km8 oriented(5). Total: 15. ED Course: 01:17 Patient arrived in ED. km8 01:17 Melanie Munoz, RN is Primary Nurse. km8 01:17 Alexi Henderson MD is Attending Physician. kyle 01:17 Alexi Mccall PA is PHCP. cp 01:19 Alexi Henderson MD is Attending Physician. cp 01:22 Inserted saline lock: 20 gauge in right antecubital area, using aseptic technique. km8 Blood collected. 01:25 Triage completed. pf1 01:28 No provider procedures requiring assistance completed. Patient maintains SpO2 km8 saturation greater than 95% on room air. 01:28 Patient has correct armband on for positive identification. Bed in low position. Call km8 light in reach. Side rails up X 1. Pulse ox on. NIBP on. Door closed. Noise minimized. Lights dimmed. Warm blanket given. 01:30 Arm band placed on right wrist. km8 01:36 PREGU Sent. 8 01:36 Urine Microscopic Only Sent. km8 02:30 IV discontinued, intact, bleeding controlled, No redness/swelling at site. Pressure km8 dressing applied. 02:30 Provided Education on: d/c teaching. km8 Administered Medications: 01:36 Drug: MethylPrednisoLONE IVP 125 mg IVP once Route: IVP; Site: right antecubital; km8 02:00 Follow up: Response: No adverse reaction 8 01:36 Drug: diphenhydrAMINE IVP 50 mg IVP once Route: IVP; Site: right antecubital; km8 02:00 Follow up: Response: No adverse reaction 8 01:36 Drug: Famotidine IVP 20 mg IVP once; dilute with 10 mL 0.9% NaCl; give over 2 minutes km8 Route: IVP; Site: right antecubital; 02:00 Follow up: Response: No adverse reaction 8 01:36 Drug: NS 0.9% IV 1000 ml IV at 1 bolus Per protocol; 1000 mL bolus Route: IV; Rate: 1 km8 bolus; Site: right antecubital; 02:31 Follow up: IV Status: Order to discontinue infusion; IV Intake: 800ml km8 01:45 Drug: predniSONE PO 40 mg PO once Route: PO; km8 02:24 Follow up: Response: No adverse reaction km8 Medication: 01:28 VIS not applicable for this client. km8 Intake: 02:31 IV: 800ml; Total: 800ml. km8 Outcome: 01:49 Discharge ordered by MD. wright 02:31 Discharged to home ambulatory, with significant other, km8 02:31 Condition: good 02:31 Discharge instructions given to patient, significant other, Instructed on discharge instructions, follow up and referral plans. medication usage, Demonstrated understanding of instructions, follow-up care, medications, Prescriptions given X 4, 02:32 Patient left the ED. km8 Signatures: Alexi Henderson MD MD cha Page, Corey, PA PA cp Finley, Pamala, RN RN pf1 Melanie Munoz, MARGARITA RN km8
--- NOTE | 2023-04-26 01:49 | EDPHYS ---
Physician Documentation [facility] Name: Pedro Luis Ruano Age: 22 yrs Sex: Female : 2000 Arrival Date: 04/26/2023 Time: 01:15 Bed 13 Private MD: ED Physician Alexi Henderson HPI: 04/26 01:23 This 22 yrs old Black Female presents to ER via Unassigned with complaints of "Throat cp Feels Funny". 01:23 The patient presents with shortness of breath. Onset: The symptoms/episode cp began/occurred just prior to arrival. Associated signs and symptoms: Pertinent negatives: dysphagia, fever, rash, vomiting. Possible causes: soda. 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 Last tetanus immunization: < 10 years ago Flu vaccine is not up to date. - Social history:: Smoking status: Reported history of juuling and/or vaping. Patient uses alcohol, occasionally. Patient/guardian denies using street drugs. ROS: 01:25 Constitutional: Negative for body aches, chills, fever, poor PO intake, cp 01:25 Eyes: Negative for injury, pain, redness, and discharge, cp 01:25 ENT: Negative for drainage from ear(s), ear pain, sore throat, difficulty swallowing, difficulty handling secretions, 01:25 Respiratory: Positive for shortness of breath, at rest. Negative for cough, wheezing, 01:25 Abdomen/GI: Negative for abdominal pain, vomiting, diarrhea, constipation, 01:25 Skin: Negative for rash, 01:25 Neuro: Negative for altered mental status, headache, weakness, 01:25 All other systems are negative, Exam: 01:30 Constitutional: The patient appears in no acute distress, alert, awake, non-toxic, well cp developed, well nourished, 01:30 Head/Face: Normocephalic, atraumatic. cp 01:30 Eyes: Periorbital structures: appear normal, Conjunctiva: normal, no exudate, no injection, Sclera: no appreciated abnormality, Lids and lashes: appear normal, bilaterally, 01:30 ENT: External ear(s): are unremarkable, Nose: is normal, Mouth: Lips: moist, Oral mucosa: pink and intact, moist, Tongue: is normal, Posterior pharynx: Airway: no evidence of obstruction, patent, swelling, is not appreciated, erythema, is not appreciated, 01:30 Neck: ROM/movement: is normal, is supple, no meningismus, no nuchal rigidity, 01:30 Chest/axilla: Inspection: normal, 01:30 Cardiovascular: Rate: normal, Rhythm: regular, 01:30 Respiratory: the patient does not display signs of respiratory distress, Respirations: normal, no use of accessory muscles, no retractions, labored breathing, is not present, Breath sounds: are clear throughout, no decreased breath sounds, no stridor, no wheezing, 01:30 Abdomen/GI: Inspection: abdomen appears normal, Palpation: abdomen is soft and non-tender, 01:30 Skin: no rash present. Vital Signs: 01:19 BP 132 / 84; Pulse 87; Resp 16; Temp 97.1; Pulse Ox 100% on R/A; Weight 68.04 kg; pf1 Height 5 ft. 2 in. ; Pain 0/10; 01:30 BP 150 / 95; Pulse 100; Resp 16; Pulse Ox 100% on R/A; km8 02:03 BP 131 / 84; Pulse 77; Resp 16; Pulse Ox 100% on R/A; km8 01:19 Body Mass Index 27.44 (68.04 kg, 157.48 cm) pf1 01:19 Pain Scale: Adult pf1 [place]eta Coma Score: 01:28 Eye Response: spontaneous(4). Motor Response: obeys commands(6). Verbal Response: km8 oriented(5). Total: 15. MDM: 01:18 Patient medically screened. kyle 04/26 01:20 Order name: Urine Microscopic Only; Complete Time: 01:52 cp 04/26 01:20 Order name: PREGU; Complete Time: 01:52 cp 04/26 01:20 Order name: IV; Complete Time: 01:22 cp Administered Medications: 01:36 Drug: MethylPrednisoLONE IVP 125 mg IVP once Route: IVP; Site: right antecubital; km8 02:00 Follow up: Response: No adverse reaction 01:36 Drug: diphenhydrAMINE IVP 50 mg IVP once Route: IVP; Site: right antecubital; 8 02:00 Follow up: Response: No adverse reaction 01:36 Drug: Famotidine IVP 20 mg IVP once; dilute with 10 mL 0.9% NaCl; give over 2 minutes Route: IVP; Site: right antecubital; 02:00 Follow up: Response: No adverse reaction 01:36 Drug: NS 0.9% IV 1000 ml IV at 1 bolus Per protocol; 1000 mL bolus Route: IV; Rate: 1 8 bolus; Site: right antecubital; 02:31 Follow up: IV Status: Order to discontinue infusion; IV Intake: 800ml 01:45 Drug: predniSONE PO 40 mg PO once Route: PO; 02:24 Follow up: Response: No adverse reaction Disposition Summary: 04/26/23 01:49 Discharge Ordered Notes: [facility] Symptoms: have improved kyle Condition: Stable kyle Diagnosis - Allergy to other foods [facility] - Food additives allergy status [facility] Followup: kyle - With: Private Physician - When: 2 - 3 days - Reason: Recheck today's complaints, Continuance of care, Re-evaluation by your physician Discharge Instructions: - Discharge Summary Sheet [facility] - How to Use an Auto-Injector Pen kyle - Food Allergy kyle - Hives [facility] - Angioedema kyle - Angioedema, [id number] [facility] - Food Allergy, [id number]-re-Dhws [facility] Forms: - Medication Reconciliation Form [facility] - Thank You Letter [facility] - Antibiotic Education [facility] - Prescription Opioid Use [facility] - Patient Portal Instructions [facility] - Leadership Thank You Letter [facility] Prescriptions: - EpiPen 0.3 mg/0.3 mL Injection Auto-Injector - administer 0.3 milliliter INTRAMUSCULAR route once as a single dose; may repeat kyle once; 2 unit; Refills: 0, Product Selection Permitted - Benadryl 25 mg Oral Capsule - take 1 capsule ORAL route every 6 hours As needed; 30 tablet; Refills: 0, [facility] Product Selection Permitted - Pepcid 20 mg Oral Tablet - take 1 tablet ORAL route every 12 hours for 10 days; 20 tablet; Refills: 0, [facility] Product Selection Permitted - Prednisone 20 mg Oral Tablet - take 2 tablets ORAL route once daily for 5 days; 10 tablet; Refills: 0, Product kyle Selection Permitted Signatures: Dispatcher [employer] Alexi Piña, Alexi Pavon MD, cha, PA PA cp Finley, Pamala RN RN pf1 Melanie Munoz RN RN km8
[2023-04-26] MEDS ORDERED: predniSONE 20 MG TAB ONE (01:58)
[2023-04-26 02:37] VITALS: TEMP 97.1; O2SAT 100
[2023-04-26 02:39] VITALS: BP 131/84
== END 2023-04-26 02:32 | disposition home or self-care (01) ==
LOC: ER 01:15
DX: R06.02 Shortness of breath (principal); R07.0 Pain in throat; Z91.018 Allergy to other foods
CPT/HCPCS: 81015; 81025; 96361; 96374; 96375; 99285; J1200; J2930; J7030; J7512

== ENCOUNTER 2023-09-23 16:14 | Emergency (ER) | payer SELFPAY ==
--- OUTSIDE RECORDS SUMMARY | 2023-09-23 16:19 | XMS REPORT | Continuity of Care Document ---
Author Name Unknown Address [address] [facility] [address] [place] [address] [facility] thconnect Address [address] [facility] [address] [place] [address] Care Team Providers Care [employer] Name Role Phone PCP, PATIENT DOES NOT HAVE A Primary Care Physic kendall Unavailable SULMA SHAFFER Attending Clinician Unavailable Sulma Do Attending Clinician [phone] DILLON FULLER Attending Clinician Unavailable Diana Doss PA-C Attending Clinician [phone] Dillon Fuller MD Attending Clinician [phone] Doctor Unassigned, [place] Attending Clinician U Chanel Pena MD Attending Clinician [phone] CHANEL MCDONALD Attending Clinician Unavailable Candido Gutierrez DO Attending Clinician [phone] CANDIDO GUTIERREZ Attending Clinician Unavailable SULMA SHAFFER Admitting Clinician Unavailable Payers Payer Name Policy Type Policy Number Effective Date Expirati on Date Source [facility] ST[facility] [id number] 2018 00:00:00 Problems Condition Name Condition Details Condition Category Status Onset Date Resolution Date Last Treatment Date Treating Clinician Comments Source Irregular menstrual cycle Irregular menstrual cycle Disease Active 12-06 00:00: 00 [facility] No known active problems No known active problems Disease Univers [facility] Allergies, Adverse Reactions, Alerts Allergy Name Allergy Type Status Severity Reaction(s) Onset Date Inactive Date Treating Clinician Comments Source NO KNOWN ALLERGIE S Drug Class Active [facility] Social History Social Habit Start Date Stop Date Quantity Comments Source Sexual orientation U [facility] Exposure to SARS-CoV-2 (event) Not sure [facility] Alcohol intake 2023-03-13 00:00:00 2023-03-13 00:00:00 1.43 /d [facility] Tobacco use and exposure 2021-02-07 00:00:00 2021-02-07 00:00:00 Smokeless tobacco non-user [facility] History of tobacco use 2021-01-31 00:00:00 Cigarette Smoker [facility] Tobacco Comment 2020-12-06 00:00:00 2020-12-06 00:00:00 smokes 5 cigarettes per week [facility] History of Social function 2020-12-06 00:00:00 2020-12-06 00:00:00 [facility] Sex Assigned At 2000 00:00:00 2000 00:00:00 [facility] Smoking Status Start Date Stop Date Source Ex-smoker 2021-02-07 00:00:00 2021-02-07 00:00:00 [facility] Current some day smoker 2020-12-06 00:00:00 [facility] Unknown if ever smoked [facility] Medications Ordered Medication Name Filled Medication Name Start Date Stop Date Current Medication? Ordering Clinician Indication Dosage Frequency Signature (SIG) Comments Components Source ondansetron (ZOFRAN-ODT ) disintegrat ing tablet 4 mg 2022-05 20:30: 00 03-13 21:17 :00 No 4mg 4 mg, Oral, ONCE, 1 dose, On Sat03/13/23 at 1530, PHI [facility] norelgestro min-ethinyl estradiol (XULANE) 150-35 mcg/24 hr patch 02-07 00:00: 00 Yes [id number] 1{patch } Apply 1 Patch to skin weekly. [facility] metroNIDAZO LE 500 mg tablet 01-11 00:00: 00 Yes TAKE 4 TABLETS BY MOUTH ONCE NOW FOR 1 DOSE. [facility] cephALEXin (KEFLEX) 500 mg capsule 3- 00:00: 00 12-06 00:00 :00 No [id number] 500mg Take 1 capsule by mouth 3 (three) times daily. [facility] proMETHazin e 25 mg tablet 7- 00:00: 00 12-06 00:00 :00 No [id number] 25mg Take 1 tablet by mouth every 6 (six) hours as needed for Nausea and Vomiting (N/V). [facility] Vital Signs Vital Name Observation Time Observation Value Comments S ource Systolic blood pressure 2023-03-13 21:16:06 154 mm[Hg] [facility] Diastolic blood pressure 2023-03-13 21:16:06 93 mm[Hg] [facility] Heart rate 2023-03-13 21:16:06 92 /min [facility] Body temperature 2023-03-13 21:16:06 36.78 Melody [facility] Respiratory rate 2023-03-13 21:16:06 18 /min [facility] Oxygen saturation in Arterial blood by Pulse oximetry 2023-03-13 21:16:06 98 /min [facility] Body height 2023-03-13 19:02:00 157.5 cm [facility] Body weight 2023-03-13 19:02:00 67.223 kg [facility] BMI 2023-03-13 19:02:00 27.11 kg/m2 [facility] Systolic blood pressure 2021-02-07 20:05:00 105 mm[Hg] [facility] Diastolic blood pressure 2021-02-07 20:05:00 71 mm[Hg] [facility] Heart rate 2021-02-07 20:05:00 85 /min [facility] Body temperature 2021-02-07 20:05:00 36.78 Melody [facility] Respiratory rate 2021-02-07 20:05:00 16 /min [facility] Body height 2021-02-07 20:05:00 157.5 cm [facility] Body weight 2021-02-07 20:05:00 57.664 kg [facility] BMI 2021-02-07 20:05:00 23.25 kg/m2 [facility] Systolic blood pressure 2020-12-06 14:57:00 124 mm[Hg] [facility] Diastolic blood pressure 2020-12-06 14:57:00 71 mm[Hg] [facility] Heart rate 2020-12-06 14:57:00 106 /min [facility] Body temperature 2020-12-06 14:57:00 36.78 Melody [facility] Respiratory rate 2020-12-06 14:57:00 18 /min [facility] Body height 2020-12-06 14:57:00 154.9 cm [facility] Body weight 2020-12-06 14:57:00 56.274 kg [facility] BMI 2020-12-06 14:57:00 23.44 kg/m2 [facility] Heart rate 2020-08-07 12:30:00 110 /min [facility] Oxygen saturation in Arterial blood by Pulse oximetry 2020-08-07 12:30:00 100 /min [facility] BMI 2020-08-07 12:06:00 23.62 kg/m2 [facility] Systolic blood pressure 2020-08-07 12:06:00 141 mm[Hg] [facility] Diastolic blood pressure 2020-08-07 12:06:00 84 mm[Hg] [facility] Body temperature 2020-08-07 12:06:00 37.06 Melody [facility] Respiratory rate 2020-08-07 12:06:00 16 /min [facility] Body height 2020-08-07 12:06:00 154.9 cm [facility] Body weight 2020-08-07 12:06:00 56.7 kg Simultaneous filing. User may not have seen previous data. [facility] Heart rate 2020-08-07 12:30:00 110 /min [facility] Oxygen saturation in Arterial blood by Pulse oximetry 2020-08-07 12:30:00 100 /min [facility] BMI 2020-08-07 12:06:00 23.62 kg/m2 [facility] Systolic blood pressure 2020-08-07 12:06:00 141 mm[Hg] [facility] Diastolic blood pressure 2020-08-07 12:06:00 84 mm[Hg] [facility] Body temperature 2020-08-07 12:06:00 37.06 Melody [facility] Respiratory rate 2020-08-07 12:06:00 16 /min [facility] Body height 2020-08-07 12:06:00 154.9 cm [facility] Body weight 2020-08-07 12:06:00 56.7 kg Simultaneous filing. User may not have seen previous data. [facility] Systolic blood pressure 2020-04-23 01:00:00 107 mm[Hg] [facility] Diastolic blood pressure 2020-04-23 01:00:00 61 mm[Hg] [facility] Heart rate 2020-04-23 01:00:00 76 /min [facility] Respiratory rate 2020-04-23 01:00:00 11 /min [facility] Oxygen saturation in Arterial blood by Pulse oximetry 2020-04-23 01:00:00 99 /min [facility] Body temperature 2020-04-22 22:41:00 36.72 Melody [facility] Body weight 2020-04-22 22:41:00 52.164 kg [facility] Systolic blood pressure 2020-04-23 01:00:00 107 mm[Hg] [facility] Diastolic blood pressure 2020-04-23 01:00:00 61 mm[Hg] [facility] Heart rate 2020-04-23 01:00:00 76 /min [facility] Respiratory rate 2020-04-23 01:00:00 11 /min [facility] Oxygen saturation in Arterial blood by Pulse oximetry 2020-04-23 01:00:00 99 /min [facility] Body temperature 2020-04-22 22:41:00 36.72 Melody [facility] Body weight 2020-04-22 22:41:00 52.164 kg [facility] Procedures Procedure Date / Time Performed Performing Clinician Source POCT TEST 2023-03-13 21:17:00 Nadia Shaffer [facility] URINALYSIS 2023-03-13 21:15:00 Sulma Shaffer [facility] ASSIGNMENT OF BENEFITS 2023-03-13 20:24:50 Docto r Unassigned, [place] [facility] XR FOOT <3 VW RIGHT 2023-03-13 20:04:33 Nadia Shaffer [facility] CONSENT/REFUSAL FOR DIAGNOSIS AND TREATMENT 2023-03-13 18:52:15 Doctor Unassigned, [place] [facility] CONSENT FOR CONTRACEPTION 2021-02-07 05:01:00 Doctor Unassigned, [place] [facility] POCT TEST 2021-02-07 00:00:00 Caitlin Doss [facility] GC & CHLAMYDIA AMPLIFIED ASSAY 2020-12-06 15:11:00 Dillon Fuller [facility] TRICHOMONAS AMPLIFIED ASSAY 2020-12-06 15:11:00 Ramone Dillon [facility] ASSIGNMENT OF BENEFITS 2020-12-06 14:42:15 Docto r Unassigned, [place] [facility] POCT TEST 2020-12-06 00:00:00 Dillon Fuller [facility] URINALYSIS 2020-08-07 12:12:00 Chanel Mcdonald [facility] POCT TEST 2020-08-07 12:12:00 Angela Mcdonald [facility] ADC / LCC - DRUG SCREEN TRIAGE 2020-08-07 12:12:00 Chanel Mcdonald [facility] LACTIC ACID WHOLE BLOOD 2020-08-07 12:09:00 Do bekah Mcdonald [facility] MAGNESIUM 2020-08-07 12:08:00 Chanel Mcdonald [facility] HEPATIC FUNCTION PANEL ([id number]) (ALB,T.PRO,BILI T,BU/BC,ALT,AST,ALK PHOS) 2020-08-07 12:08:00 Chanel Mcdonald [facility] BASIC METABOLIC PANEL (NA, K, CL, CO2, GLUCOSE, BUN, CREATININE, CA) 2020-08-07 12:08:00 Chanel Mcdonald [facility] CBC WITH DIFF 2020-08-07 12:08:00 Chanel Mcdonald [facility] POCT GLUCOSE (AUTOMATED) 2020-08-07 12:06:00 Marly Mcdonald [facility] URINALYSIS 2020-04-23 00:23:00 [facility] ADC / LCC - DRUG SCREEN TRIAGE 2020-04-22 22:56:00 Singer Candido [facility] COMP. METABOLIC PANEL ([id number]) 2020-04-22 22:53:00 Candido Gutierrez [facility] SALICYLATE 2020-04-22 22:53:00 Candido [facility]rez [facility] ETHANOL 2020-04-22 22:53:00 Gutierrez, [facility] Encounters Start Date/Time End Date/Time Encounter Type Admission Type Attending [facility] Care Department Encounter ID Source 2023-03-13 14:06:00 2023-03-13 18:03:00 Emergency X JOSELYN SHAFFERANNE [facility] ERT [id number] [facility] 2023-03-13 14:06:00 2023-03-13 18:03:00 Emergency Joselyn Shafferanne [facility] 1..840.114 350.1.13.10 4.2.7.2.686 [id number] [facility] 2021-02-16 15:00:00 2021-02-16 15:00:00 Outpatient DILLON LOMAS [facility] [id number] [facility] 2021-02-07 14:50:27 2021-02-07 15:20:27 Office Visit Diana Doss Megan [facility] ER's [facility] 1..840.114 350.1.13.10 4.2.7.2.686 [id number] [facility] 2021-02-07 15:00:00 2021-02-07 15:00:00 Outpatient DILLON LOMAS [facility] [id number] [facility] 2021-02-07 00:00:00 2021-02-07 00:00:00 Orders Only Doctor Unassigned, [place] [facility] 1.2840.114 350.1.13.10 4.2.7.2.686 [id number] 009 [id number] [facility] 2021-01-09 00:00:00 2021-01-09 00:00:00 Telephone Dillon Fuller [facility] 1.2840.114 350.1.13.10 4.2.7.2.686 [id number] [facility] 2020-12-06 09:43:25 2020-12-06 13:05:32 Office Visit Ramone Dillon [facility] 1.2840.114 350.1.13.10 4.2.7.2.686 [id number] [facility] 2020-12-06 10:00:00 2020-12-06 10:00:00 Outpatient R [facility] [id number] [facility] 2020-12-06 00:00:00 2020-12-06 00:00:00 Orders Only Doctor Unassigned, [place] [facility] 1.2840.114 350.1.13.10 4.2.7.2.686 [id number] [id number] [facility] 2020-12-06 00:00:00 2020-12-06 00:00:00 Orders Only Doctor Unassigned, [place] [facility] 1.2840.114 350.1.13.10 4.2.7.2.686 [id number] 2020-08-07 07:07:00 2020-08-07 08:22:00 Emergency Chanel Mcdonald [facility] 1.2.840.114 350.1.13.10 4.2.7.2.686 [id number] [id number] [facility] 2020-08-07 07:07:00 2020-08-07 08:22:00 Emergency Chanel Mcdonald [facility] 1.2.840.114 350.1.13.10 4.2.7.2.686 [id number] 2020-08-07 07:07:00 2020-08-07 07:07:00 Emergency X CHANEL MCDONALD E[facility] [id number] [facility] 2020-04-22 16:38:00 2020-04-22 19:41:00 Emergency Candido Gutierrez [facility] 1.2.840.114 350.1.13.10 4.2.7.2.686 [id number] [id number] [facility] 2020-04-22 16:38:00 2020-04-22 19:41:00 Emergency Candido Gutierrez [facility] 1.2.840.114 350.1.13.10 4.2.7.2.686 [id number] 2020-04-22 16:38:00 2020-04-22 16:38:00 Emergency CANDIDO CHAVES [facility] ERT [id number] [facility] Results Test Description Test Time Test Comments Results Result Co mments Source [id number] 20:14:00* Test Item Value Reference Range Interpretation Comme nts POCT PREG (test code = 1605) Negative On board controls acceptable with C Line (test code = 3574) Yes POCT PREG LOT # (test code = 3575) POCT PREG TEST DATE ( test code = 3576) [facility] [id number] 20:14:00* Test Item Value Reference Range Interpretation Comme nts POCT PREG (test code = 1605) Negative On board controls acceptable with C Line (test code = 3574) Yes POCT PREG LOT # (test code = 3575) POCT PREG TEST DATE ( test code = 3576) [facility] [id number] 20:14:00* Test Item Value Reference Range Interpretation Comme nts POCT PREG (test code = 1605) Negative On board controls acceptable with C Line (test code = 3574) Yes POCT PREG LOT # (test code = 3575) POCT PREG TEST DATE ( test code = 3576) [facility] CHLAMYDIA AMPLIFIED [id number] 19:35:20* Test Item Value Reference Range Interpretation Comme nts C. trachomatis Nucleic Acid (test code = 81720-4) Negative Negative N. gonorrhoeae Nucleic Acid (test code = 05606-0) Negative Negative SREE (test code = SREE) [...] gonorrhoeae NAAT. Lab Interpretation (test code = 04513-6) Normal [facility] System[facility]ICH[facility]ONAS AMPLIFIED [id number] 19:25:22 * Test Item Value Reference Range Interpretation Comme nts Trichomonas Nucleic Acid (test code = 53000-8) Positive Negative A SREE (test code = [...] the clinician. Lab Interpretation (test code = 13241-1) Abnormal [facility] [id number] 15:13:00* Test Item Value Reference Range Interpretation Comme nts POCT PREG (test code = 1605) Negative On board controls acceptable with C Line (test code = 3574) Yes POCT PREG LOT # (test code = 3575) POCT PREG TEST DATE ( test code = 3576) [facility] - DRUG SCREEN [id number] 13:11:01* Test Item Value Reference Range Interpretation Comme nts BENZO U (test code = 4985511413) Negative Negative JAGJIT U (test code = 7375129423) Negative Negative AMPHET (test code = 1658568685) Presumptive Positive Negative A THC (test code = 7152693235) Negative Negative METHADONE (test code = 0862208846) Negative Negative Meth U (test code = 1367393857) Presumptive Positive Negative A OPIATES (test code = 8957289279) Negative Negative Cocaine Metabolite (test code = 0504789787) Negative Negative PROPOXY (test code = 3487469083) Negative Negative Tric U (test code = 3663328857) Negative Negative PCP (test code = 1309288133) Negative Negative OXYCOD (test code = 6070981798) Negative Negative SREE (test code = SREE) [...] legal testing). Lab Interpretation (test code = 31545-7) Abnormal [facility] Panel (ALB, T.PRO, BILI T, BU/BC, ALT, AST, ALK PHOS)2020-08-07 12:49:21* Test Item Value Reference Range Interpretation Comme nts TOTAL BILI (test code = 8745772477) 0.4 mg/dL 0.1-1.1 BILI UNCON (test code = 9062481916) 0.3 mg/dL 0.1-1.1 BILI CONJ (test code = 9875517920) 0.0 mg/dL 0.0-0.3 T PROTEIN (test code = 0238261518) 7.9 g/dL 6.3-8.2 ALBUMIN (test code = 6354579139) 4.7 g/dL 3.5-5.0 ALK PHOS (test code = 7071860726) 80 U/L 34-122 ALTv (test code = 1742-6) 10 U/L 5-35 AST(SGOT) (test code = 7939939753) 21 U/L 13-40 Lab Interpretation (test cod e = 75237-9) Normal [facility]2021-03-21 12:49:21* Test Item Value Reference Range Interpretation Comme nts MAGNESIUM (test code = 0476249052) 1.8 mg/dL 1.7-2.4 Lab Interpretation (test cod e = 52405-0) Normal [facility] Met[facility] (NA, K, CL, CO2, GLUCOSE, BUN, CREATININE, CA)2020-08-07 12:49:00* Test Item Value Reference Range Interpretation Comme nts NA (test code = 5116848521) 142 mmol/L 135-145 K (test code = 1165108570) 3.6 mmol/L 3.5-5.0 CL (test code = 6108134232) 106 mmol/L 98-108 CO2 TOTAL (test code = 6749384108) 25 mmol/L 23-31 AGAP (test code = 1449279990) 2-16 BUN (test code = 5883148223) 10 mg/dL 7-23 GLUCOSE (test code = 4927460509) 99 mg/dL 70-110 CREATININE (test code = 5423294714) 0.76 mg/dL 0.50-1.04 CALCIUM (test code = 6862952545) 8.9 mg/dL 8.6-10.6 eGFR Calculation (Non-) (test code = 6581450567) mL/min/1.73m2 eGFR Calculation () (test code = 0891750321) mL/min/1.73m2 SREE (test code = SREE) Association [...] urine or abnormalities in imaging tests). [facility] [id number] 12:43:34* Test Item Value Reference Range Interpretation Comme nts APPEARANCE (test code = 7808339806) Hazy Clear A COLOR (test code = 9623802741) Yellow Yellow PH (test code = 0313876476) 4.8-8.0 SP GRAVITY (test code = 9088847008) 1.003-1.030 GLU U QUAL (test code = 6690602233) Normal Normal BLOOD (test code = 0574125119) Negative Negative KETONES (test code = 5627010936) Negative Negative PROTEIN (test code = 2887-8) 30 mg/dL Negative A UROBILIN (test code = 0455796844) 4.0 mg/dL Normal A BILIRUBIN (test code = 5829120094) Negative Negative NITRITE (test code = 0932395797) Negative Negative LEUK AMI (test code = 9435389970) 500/uL Negative A RBC/HPF (test code = 0189670257) See_Comment H [Automated messa ge] The system which generated this result transmitted reference range: 0 - 3 HPF. The reference range was not used to interpret this result as normal/abnormal. WBC/HPF (test code = 0462550721) See_Comment H [Automated messa ge] The system which generated this result transmitted reference range: 0 - 5 HPF. The reference range was not used to interpret this result as normal/abnormal. BACTERIA (test code = 8962654731) Few Negative A MUCOUS (test code = 8669410411) Moderate Negative LPF A SQ EPITH (test code = 6654056120) HPF HYAL CAST (test code = 2369079473) See_Comment [Automated messa ge] The system which generated this result transmitted reference range: <=2 LPF. The reference range was not used to interpret this result as normal/abnormal. Lab Interpretation (test code = 55979-8) Abnormal [facility] with [id number] 12:36:58* Test Item Value Reference Range Interpretation [...] 33.2 g/dL 31.6-35.1 RDW-SD (test code = 85020-4) 44.4 fL 39.0-49.9 RDW-CV (test code = 788-0) 12.9 % 12.0-15.5 PLT (test code = 777-3) See_Comment [Automated messa ge] The system which generated this result transmitted reference range: 166 - 358 10*3/?L. The reference range was not used to interpret this result as normal/abnormal. MPV (test code = 06296-1) 9.9 fL 9.5-12.9 NRBC/100 WBC (test code = 6612893296) See_Comment [Automated PumpUp ssage] The system which generated this result transmitted reference range: 0.0 - 10.0 /100 WBCs. The reference range was not used to interpret this result as normal/abnormal. NRBC x10^3 (test code = 3228196728) <0.01 See_Comment [Automated Casmula ge] The system which generated this result transmitted reference range: 10*3/?L. The reference range was not used to interpret this result as normal/abnormal. GRAN MAT (NEUT) % (test code = 770-8) 48.9 % IMM GRAN % (test code = 9528575081) 0.40 % LYMPH % (test code = 736-9) 39.1 % MONO % (test code = 5905-5) 8.4 % EOS % (test code = 713-8) 2.4 % BASO % (test code = 706-2) 0.8 % GRAN MAT x10^3(ANC) (test code = 6854885327) 4.66 10*3/uL 1.88-7.09 IMM GRAN x10^3 (test code = 5210246675) 0.04 10*3/uL 0.00-0.06 LYMPH x10^3 (test code = 731-0) 3.73 10*3/uL 1.32-3.29 H MONO x10^3 (test code = 742-7) 0.80 10*3/uL 0.33-0.92 EOS x10^3 (test code = 711-2) 0.23 10*3/uL 0.03-0.39 BASO x10^3 (test code = 704-7) 0.08 10*3/uL 0.01-0.07 H Lab Interpretation (test code = 25022-5) Abnormal [facility] SystemLaal[facility] Acid Whole [id number] 12:16:25* Test Item Value Reference Range Interpretation Comme nts LACTIC ACID (test code = 3748893166) 2.19 mmol/L 0.50-2.20 Lab Interpretation (test cod e = 07598-1) Normal [facility] [id number] 12:12:00* Test Item Value Reference Range Interpretation Comme nts POCT PREG (test code = 1605) negative On board controls acceptable with C Line (test code = 3574) present POCT PREG LOT # (test code = 3575) [id number] POCT PREG TEST DATE ( test code = 3576) 2022-02-16 Lab Interpretation (test cod e = 54809-9) Normal [facility] GLUCOSE (AUTOMATED)2020-08-07 12:09:13* Test Item Value Reference Range Interpretation Comme nts POCT GLU (test code = 1071513478) 95 mg/dL 70-110 Lab Interpretation (test cod e = 40964-5) Normal [facility]2020-12-05 00:56:00* Test Item Value Reference Range Interpretation Comme nts APPEARANCE (test code = 6925168436) Clear Clear COLOR (test code = 2646067944) Yellow Yellow PH (test code = 6382252418) 4.8-8.0 SP GRAVITY (test code = 4124904688) <=1.005 1.003-1.030 GLU U QUAL (test code = 5910600958) Negative Negative BLOOD (test code = 0854719281) Negative Negative KETONES (test code = 4707596689) Negative Negative PROTEIN (test code = 2887-8) Negative Negative UROBILIN (test code = 7606512182) 1.0 mg/dL See_Comment [Automated messa ge] The system which generated this result transmitted reference range: 0-1.0 mg/dL. The reference range was not used to interpret this result as normal/abnormal. BILIRUBIN (test code = 2447229706) Negative Negative NITRITE (test code = 4593197478) Negative Negative LEUK AMI (test code = 5533457797) Negative Negative RBC/HPF (test code = 6561106955) <1 See_Comment [Automated messa ge] The system which generated this result transmitted reference range: 0 - 3 HPF. The reference range was not used to interpret this result as normal/abnormal. WBC/HPF (test code = 1789893777) <1 See_Comment [Automated messa ge] The system which generated this result transmitted reference range: 0 - 5 HPF. The reference range was not used to interpret this result as normal/abnormal. BACTERIA (test code = 4161192641) Negative Negative Lab Interpretation (test code = 04136-3) Normal [facility]00* Test Item Value Reference Range Interpretation Comme nts SALICYLATE (test code = 8520460898) <10 mg/L SREE (test code = SREE) Therapeutic Range: ? Analgesic and Antipyretic Use ? 20-100 mg/L ? ? Anti-Inflammatory Use ? 100-250 mg/L Toxic Range: ? Greater than 300 mg/L [facility]2020-12-05 00:15:00* Test Item Value Reference Range Interpretation Comme nts ACETAMINOP (test code = 9523637578) <10.0 10-30 L SREE (test code = SREE) Toxic: Greater nguyen n 200 ug/mL @ 4 hour post ingestion or greater than 50 ug/mL @ 12 hour post ingestion Lab Interpretation (test code = 19386-9) Abnormal [facility]2020-12-05 00:15:00* Test Item Value Reference Range Interpretation Comme nts ALCOHOL (test code = 8383717929) <10 mg/dL SREE (test code = SREE) <10 [id number] Toxic>100 Depression of [employer]>400 Fatalities Reported [facility]. METABOLIC PANEL (24618)2020-04-23 00:09:00* Test Item Value Reference Range Interpretation Comme nts NA (test code = 2472560540) 138 mmol/L 135-145 K (test code = 1124210503) 3.9 mmol/L 3.5-5 CL (test code = 5824700718) 101 mmol/L 98-108 CO2 TOTAL (test code = 6379412229) 29 mmol/L 23-31 AGAP (test code = 0850678452) 2-16 BUN (test code = 0765356691) 11 mg/dL 7-23 GLUCOSE (test code = 9889104500) 110 mg/dL 70-110 CREATININE (test code = 0443099161) 0.69 mg/dL 0.5-1.04 TOTAL BILI (test code = 2411997844) 0.7 mg/dL 0.1-1.1 CALCIUM (test code = 8767222371) 10.1 mg/dL 8.6-10.6 T PROTEIN (test code = 5014310883) 8.0 g/dL 6.3-8.2 ALBUMIN (test code = 3725286063) 4.7 g/dL 3.5-5 ALK PHOS (test code = 9183164356) 88 U/L 34-122 ALTv (test code = 1742-6) 11 U/L 5-35 AST(SGOT) (test code = 4227302109) 23 U/L 13-40 eGFR Calculation (Non-) (test code = 3295599978) mL/min/1.73m2 eGFR Calculation () (test code = 9677897403) mL/min/1.73m2 SREE (test code = SREE) Association [...] urine or abnormalities in imaging tests). [facility] / [facility] - DRUG SCREEN [id number] 23:25:00* Test Item Value Reference Range Interpretation Comme nts BENZO U (test code = 4699721101) Negative Negative JAGJIT U (test code = 6150965407) Negative Negative AMPHET (test code = 8745329122) Negative Negative THC (test code = 8443759837) Negative Negative METHADONE (test code = 2817499449) Negative Negative Meth U (test code = 6569003514) Negative Negative OPIATES (test code = 0372902403) Negative Negative Cocaine Metabolite (test code = 3749511988) Negative Negative PROPOXY (test code = 3943203843) Negative Negative Tric U (test code = 6523427926) Negative Negative PCP (test code = 3581978043) Negative Negative OXYCOD (test code = 6906955143) Negative Negative SREE (test code = SREE) [...] legal testing). Lab Interpretation (test code = 88804-4) Normal [facility]"
[2023-09-23] MEDS ORDERED: NA CHLORIDE 0.9% 1,000 ML ONE (17:33)
[2023-09-23 17:47] LABS: Specific Gravity 1.024 (1.005-1.030)
[2023-09-23 17:50] LABS: Specific Gravity 1.024 (1.005-1.030); Urine Bacteria <20 /HPF (<20); Urine Bilirubin NEGATIVE (Negative); Urine Blood Negative (Negative); Urine Clarity Turbid (Clear); Urine Color Light-Yellow (Yellow); Urine Culture Reflex Order NOT NEEDED; Urine Glucose NEGATIVE (Negative); Urine Ketones TRACE (Negative); Urine Microscopic Reflex YN ORDER UMIC; Urine Mucus Slight /HPF (None Seen); Urine Nitrite NEGATIVE (Negative); Urine Protein 1+ (Negative); Urine Urobilinogen Normal (Normal); Urine WBC <5 /HPF (<5)
[2023-09-23 17:55] LABS: Absolute Basophils 0.1 K/uL (0-0.5); Absolute Eosinophils 0.1 K/uL (0-0.5); Absolute Lymphocytes (CBC) 1.8 K/uL (0.7-4.9); Absolute Monocytes 0.6 K/uL (0.1-1.3); Basophils % 0.5 % (0-1.3); Eosinophils % 0.5 % (0-4.4); Hematocrit 40.9 % (36.0-45.0); Hemoglobin 13.5 g/dL (12.0-15.0); Lymphocytes % 15.4 % (15.3-44.8); MCV 93.9 fL (80-100); MPV 7.9 fL (7.6-11.3); Monocytes % 5.5 % (3.3-12.3); Neutrophils % 78.1 % (41.7-73.7); Platelets 391 thou/uL (152-406); RBC Red Blood Cell Count 4.35 M/uL (3.86-4.86); Red Cell Distribution Width 15.2 % (12.1-15.2)
[2023-09-23 18:01] LABS: Albumin 4.4 g/dL (3.4-5.0); Albumin/Globulin Ratio 1.1 (1.1-1.8); Anion Gap 7.8 mEq/L (5.0-15.0); Bilirubin Total 0.5 mg/dL (0.2-1.0); Potassium 3.8 mEq/L (3.5-5.1); Protein, Total 8.4 g/dL (6.4-8.2)
[2023-09-23 20:11] LABS: Barbiturates NEGATIVE (NEGATIVE); Benzodiazepines NEGATIVE (NEGATIVE); Cocaine NEGATIVE (NEGATIVE); METHAMPHETAM NEGATIVE (NEGATIVE); Methadone NEGATIVE (NEGATIVE); Opiates NEGATIVE (NEGATIVE); Phencyclidine NEGATIVE (NEGATIVE); THC Cannibis NEGATIVE (NEGATIVE)
--- NOTE | 2023-09-23 20:12 | EDPHYS ---
Physician Documentation [facility] Name: Pedro Luis Ruano Age: 22 yrs Sex: Female : 2000 Arrival Date: 09/23/2023 Time: 16:14 Bed 9 Private MD: ED Physician Angela Bell HPI: 09/22 20:11 Patient with abdominal cramping and nausea vomiting diarrhea that started a couple days gb1 ago. She denies any fever and her last menstrual period was last week. She denies any vaginal discharge or bleeding. Has history of anemia, asthma and seizure activity.. 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 - Infectious Disease History:: Denies. - Social history:: Smoking status: Reported history of juuling and/or vaping. Exam: 20:11 Constitutional: This is a well developed, well nourished patient who is awake, alert, gb1 and in no acute distress. Head/Face: Normocephalic, atraumatic. Eyes: Pupils equal round and reactive to light, extra-ocular motions intact. Lids and lashes normal. Conjunctiva and sclera are non-icteric and not injected. Cornea within normal limits. Periorbital areas with no swelling, redness, or edema. ENT: Nares patent. No nasal discharge, no septal abnormalities noted. Tympanic membranes are normal and external auditory canals are clear. Oropharynx with no redness, swelling, or masses, exudates, or evidence of obstruction, uvula midline. Mucous membranes moist. Neck: Trachea midline, no thyromegaly or masses palpated, and no cervical lymphadenopathy. Supple, full range of motion without nuchal rigidity, or vertebral point tenderness. No Meningismus. Chest/axilla: Normal chest wall appearance and motion. Nontender with no deformity. No lesions are appreciated. Cardiovascular: Regular rate and rhythm with a normal S1 and S2. No gallops, murmurs, or rubs. Normal PMI, no JVD. No pulse deficits. Respiratory: Lungs have equal breath sounds bilaterally, clear to auscultation and percussion. No rales, rhonchi or wheezes noted. No increased work of breathing, no retractions or nasal flaring. Abdomen/GI: Soft, non-tender, with normal bowel sounds. No distension or tympany. No guarding or rebound. No evidence of tenderness throughout. Back: No spinal tenderness. No costovertebral tenderness. Full range of motion. Skin: Warm, dry with normal turgor. Normal color with no rashes, no lesions, and no evidence of cellulitis. MS/ Extremity: Pulses equal, no cyanosis. Neurovascular intact. Full, normal range of motion. Neuro: Awake and alert, GCS 15, oriented to person, place, time, and situation. Cranial nerves II-XII grossly intact. Motor strength 5/5 in all extremities. Sensory grossly intact. Cerebellar exam normal. Normal gait. Psych: Awake, alert, with orientation to person, place and time. Behavior, mood, and affect are within normal limits. Vital Signs: 16:21 BP 142 / 92; Pulse 100; Resp 18 S; Temp 98(O); Pulse Ox 99% on R/A; Weight 68.04 kg as6 (R); Height 5 ft. 2 in. (R); Pain 9/10; 16:30 BP 135 / 89; Pulse 113; Resp 16; Pulse Ox 100% ; me1 17:30 BP 141 / 87; Pulse 101; Resp 16; Pulse Ox 100% on R/A; me1 18:30 BP 119 / 85; Pulse 96; Resp 16; Pulse Ox 99% on R/A; me1 19:30 BP 124 / 70; Pulse 106; Resp 16; Pulse Ox 99% on R/A; me1 20:43 BP 126 / 80; Pulse 94; Resp 16; Pulse Ox 100% on R/A; me1 16:21 Body Mass Index 27.44 (68.04 kg, 157.48 cm) as6 16:21 Pain Scale: Adult as6 MDM: 16:29 Patient medically screened. gb1 20:11 Differential diagnosis: hypovolemia, , Acute appendicitis, acute pancreatitis, gb1 ability biliary colic with cholelithiasis, ectopic , UTI, pyelonephritis.. Data reviewed: vital signs, nurses notes. ED course: 20-year-old female with nausea vomiting diarrhea and generalized abdominal pain. No peritoneal signs to suggest acute appendicitis or small bowel obstruction. Patient is clinically improved and blood work at this time does not show any egregious abnormalities. I do recommend 12-hour recheck as this could be an early appendicitis versus just mild dehydration secondary to poor p.o. intake. This also could be a viral gastroenteritis. Patient is p.o. tolerant prior to discharge home today and I recommend that she be seen and evaluated in the emergency department if she is unable to keep down fluids in the next 12 to 24 hours or her pain worsens or she develops a fever or focal right lower quadrant tenderness.. 09/22 17:24 Order name: CBC with Diff; Complete Time: 18:16 gb1 09/22 17:24 Order name: CMP; Complete Time: 18:16 gb1 09/22 17:24 Order name: Lipase; Complete Time: 18:16 gb1 09/22 17:24 Order name: Test, Urine; Complete Time: 18:16 gb1 09/22 17:24 Order name: Urinalysis w/ reflexes; Complete Time: 18:16 gb09/22 18:55 Order name: UDS; Complete Time: 20:16 gb1 09/22 17:24 Order name: IV Saline Lock; Complete Time: 17:38 gb1 09/22 17:24 Order name: Labs collected and sent; Complete Time: 17:38 gb1 Administered Medications: 17:38 Drug: NS 0.9% IV 1000 ml IV at 1 bolus Per protocol; 1000 mL bolus Route: IV; Rate: 1 me1 bolus; Site: right antecubital; 19:27 Follow up: Response: No adverse reaction; IV Status: Completed infusion; IV Intake: me1 1000ml Disposition Summary: 09/23/23 20:11 Discharge Ordered Notes: Location: Home gb1 Condition: Stable gb1 Diagnosis - Abdominal pain, unspecified gb1 - Nausea with vomiting, unspecified gb1 - Diarrhea, unspecified gb1 Discharge Instructions: - Discharge Summary Sheet gb1 - Abdominal Pain, Adult gb1 - Nausea and Vomiting, Adult gb1 Forms: - Family Work Release me1 - Medication Reconciliation Form gb1 - Antibiotic Education gb1 - Prescription Opioid Use gb1 - Patient Portal Instructions gb1 - Leadership Thank You Letter gb1 Prescriptions: - BENTYL - take 10 milligram ORAL route every 4 to 6 hours; 30 tablet; Refills: 0, Product gb1 Selection Permitted - Zofran 4 mg Oral Tablet - take 1 tablet ORAL route every 12 hours As needed; 20 tablet; Refills: 0, gb1 Product Selection Permitted Signatures: Dispatcher [employer] Junior Muñoz RN RN as6 Suzanne Cheatham RN RN me1 Angela Bell MD MD gb1 Corrections: (The following items were deleted from the chart) 18:55 18:55 URINE DRUG SCREEN+.LAB.BRZ ordered. ADITHYA HAJI
--- NOTE | 2023-09-23 20:12 | ER ---
Nurse's Notes [facility] Name: Pedro Luis Ruano Age: 22 yrs Sex: Female : 2000 Arrival Date: 09/23/2023 Time: 16:14 Bed 9 Private MD: Diagnosis: Abdominal pain, unspecified;Nausea with vomiting, unspecified;Diarrhea, unspecified Presentation: 09/22 16:22 Chief complaint: Patient states: dizziness, lightheaded, vomiting, abdominal pain that as6 started today. Coronavirus screen: At this time, the client does not indicate any symptoms associated with coronavirus-19. Ebola Screen: No symptoms or risks identified at this time. Initial Sepsis Screen: Does the patient meet any 2 criteria? No. Patient's initial sepsis screen is negative. Does the patient have a suspected source of infection? No. Patient's initial sepsis screen is negative. Risk Assessment: Do you want to hurt yourself or someone else? Patient reports no desire to harm self or others. Onset of symptoms was September 23, 2023. 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 - Infectious Disease History:: Denies. - Social history:: Smoking status: Reported history of juuling and/or vaping. Screenin:30 [facility] ED Fall Risk Assessment (Adult) History of falling in the last 3 months, me1 including since admission No falls in past 3 months (0 pts) Confusion or Disorientation No (0 pts) Intoxicated or Sedated No (0 pts) Impaired Gait No (0 pts) Mobility Assist Device Used No (0 pt) Altered Elimination No (0 pt) Score/Fall Risk Level 0 - 2 = Low Risk Maintained a safe environment, Provided non-skid footwear, Hourly rounding (assess needs \T\ fall precautionary measures) done. Abuse screen: Denies threats or abuse. Nutritional screening: No deficits noted. Tuberculosis screening: No symptoms or risk factors identified. Assessment: 16:30 General: Appears uncomfortable, well developed, well nourished, Behavior is me1 cooperative, appropriate for age, restless, Reports abdominal pain, n/v, dizziness. Pain: Complains of pain in right lower quadrant and left lower quadrant Pain does not radiate. Pain currently is 7 out of 10 on a pain scale. Quality of pain is described as burning, Pain began gradually, today Is continuous. Neuro: Level of Consciousness is awake, alert, obeys commands, Oriented to person, place, time, situation, Appropriate for age. Neuro: Reports dizziness, since this morning. Cardiovascular: Capillary refill < 3 seconds Patient's skin is warm and dry. Respiratory: Airway is patent Respiratory effort is even, unlabored, Respiratory pattern is regular, symmetrical. GI: Abdomen is non-distended, Reports lower abdominal pain, nausea, vomiting. : No signs and/or symptoms were reported regarding the genitourinary system. EENT: No signs and/or symptoms were reported regarding the EENT system. Derm: Skin is intact, is healthy with good turgor, Skin is pink, warm \T\ dry. Musculoskeletal: No signs and/or symptoms reported regarding the musculoskeletal system. Vital Signs: 16:21 BP 142 / 92; Pulse 100; Resp 18 S; Temp 98(O); Pulse Ox 99% on R/A; Weight 68.04 kg as6 (R); Height 5 ft. 2 in. (R); Pain 9/10; 16:30 BP 135 / 89; Pulse 113; Resp 16; Pulse Ox 100% ; me1 17:30 BP 141 / 87; Pulse 101; Resp 16; Pulse Ox 100% on R/A; me1 18:30 BP 119 / 85; Pulse 96; Resp 16; Pulse Ox 99% on R/A; me1 19:30 BP 124 / 70; Pulse 106; Resp 16; Pulse Ox 99% on R/A; me1 20:43 BP 126 / 80; Pulse 94; Resp 16; Pulse Ox 100% on R/A; me1 16:21 Body Mass Index 27.44 (68.04 kg, 157.48 cm) as6 16:21 Pain Scale: Adult as6 ED Course: 16:18 Patient arrived in ED. im 16:20 Angela Bell MD is Attending Physician. gb1 16:22 Arm band placed on. as6 16:23 Triage completed. as6 16:24 Suzanne Cheatham, RN is Primary Nurse. me1 16:30 Patient has correct armband on for positive identification. Bed in low position. Call me1 light in reach. Side rails up X 1. Provided Education on: POC. Verbalized understanding.. 16:30 No provider procedures requiring assistance completed. me1 17:37 Initial lab(s) drawn, by me, sent to lab. Urine collected: clean catch specimen, clear. me1 Inserted saline lock: 22 gauge in right antecubital area, using aseptic technique. 17:38 CBC with Diff Sent. me1 17:38 CMP Sent. me1 17:38 Lipase Sent. me1 17:38 Test, Urine Sent. me1 17:38 Urinalysis w/ reflexes Sent. me1 19:31 UDS Sent. me1 20:44 IV discontinued, intact, bleeding controlled, No redness/swelling at site. Pressure me1 dressing applied. Administered Medications: 17:38 Drug: NS 0.9% IV 1000 ml IV at 1 bolus Per protocol; 1000 mL bolus Route: IV; Rate: 1 me1 bolus; Site: right antecubital; 19:27 Follow up: Response: No adverse reaction; IV Status: Completed infusion; IV Intake: me1 1000ml Medication: 16:30 VIS not applicable for this client. me1 Intake: 19:27 IV: 1000ml; Total: 1000ml. me1 Outcome: 20:11 Discharge ordered by . gb1 20:44 Discharged to home ambulatory, with significant other, me1 20:44 Condition: stable 20:44 Discharge instructions given to patient, significant other, Instructed on discharge instructions, follow up and referral plans. medication usage, Demonstrated understanding of instructions, follow-up care, medications, Prescriptions given X 2, 20:45 Patient left the ED. me1 Signatures: Junior Lane RN RN as6 Shamika Betancourt Michelle, MARGARITA RN me1 Angela Bell MD MD gb1 Corrections: (The following items were deleted from the chart) 16:25 16:22 Chief complaint: Patient states: dizziness, lightheaded, vomiting, abdominal pain me1 that started today as6
[2023-09-23 22:24] VITALS: BP 126/80; TEMP 98; O2SAT 100
== END 2023-09-23 20:45 | disposition home or self-care (01) ==
LOC: ER 16:14
DX: R10.9 Unspecified abdominal pain (principal); R11.2 Nausea with vomiting, unspecified; R19.7 Diarrhea, unspecified
CPT/HCPCS: 36415; 80053; 80307; 81001; 81025; 83690; 85025; 96360; 96361; 99284; J7030